=== PATIENT | female | born 1940 | race Caucasian/White ===

== ENCOUNTER 2017-09-24 23:34 | Inpatient (IN) | payer OTHER ==
[2017-09-25] MEDS ORDERED: morphine CARPU-JECT 2 MG/1 ML DISP.SYRIN IVPUSH ONE (02:12)
[2017-09-25 02:29] LABS: BASOPHIL 0.1 % (0-2.0); EOSINOPHIL 0.1 % (0-4.5); MCH 29.4 pg (25.7-33.7); MCHC 34.2 g/dl (32.0-36.0); MEAN PLT VOLUME 8.3 fl (7.5-11.1); NEUTROPHILS 74.4 % (42.8-82.8); PLATELET COUNT 343 K/MM3 (134-434); RDW 15.9 % (11.6-15.6); WHITE BLOOD COUNT 7.2 K/mm3 (4.0-10.0)
--- NOTE | 2017-09-25 02:32 | PDOC ---
History of Present Illness - General Chief Complaint: Injury Stated Complaint: FALL Time Seen by Provider: 09/25/17 00:01 History Source: [facility] Records Exam Limitations: Dementia - History of Present Illness Initial Comments: 09/25/17 02:25 76yo Female patient w/ PmHx: Anemia, CAD, GERD, Hypokalemia, Early Dementia, C- Diff presented to ED via EMS from [facility] for fall. Staff state patient fell on Sep 23, X-rays done on results: No fracture or dislocation. Staff report patient continues to c/o pain and was sent to this ED for evaluation. Anticoagulation: ASA 81 and Heparin 5000 units. Occurred: reports: other (2 days). denies: just prior to arrival, this morning , this afternoon, this evening, yesterday, last week Severity: reports: moderate. denies: mild, severe Pain Location: reports: lower extremity. denies: none, abdomen, back, chest, face, head, mouth, neck, other, pelvis, upper extremity Method of Injury: Yes: fall. No: unknown, assault, direct blow, motor vehicle crash, other Modifying Factors: improves with: immobilization. worse with: None, cold therapy, pain medication, rest, other Past History - Travel Traveled outside of the country in the last 30 days: No Close contact w/someone who was outside of country & ill: No - Past Medical History Allergies/Adverse Reactions: Allergies Allergy/AdvReac Type Severity Reaction Status Date / Time No Known Allergies Allergy Verified 09/24/17 23:49 Home Medications: Ambulatory Orders Aspirin [Neal Chewable Aspirin] 81 mg PO DAILY 09/04/17 Lactobacillus Acidophilus [Acidophilus] 1 each PO BID 09/04/17 Levothyroxine Sodium [Levo-T] 100 mcg PO DAILY 09/04/17 Quetiapine Fumarate [Seroquel -] 37.5 mg PO BID 09/04/17 Trazodone HCl 25 mg PO HS 09/04/17 Vancomycin 125 mg PO QID 09/04/17 Ascorbic Acid [Vitamin C -] 500 mg PO DAILY #30 tablet 09/07/17 Ferrous Sulfate [Feosol] 325 mg PO DAILY #30 tab 09/07/17 Heparin - 5,000 unit SQ BID #1 vial 09/07/17 Levothyroxine [Synthroid -] 125 mcg PO DAILY@0700 #30 tablet 09/07/17 Vancomycin Oral Solution 125 mg PO QID #1 ml 09/07/17 Anemia: No Asthma: No Cancer: No Cardiac Disorders: No CVA: No COPD: No CHF: No Dementia: No Diabetes: No GI Disorders: Yes (enterocolitis d/t c diff) Disorders: No HTN: No Hypercholesterolemia: No Liver Disease: No Psychiatric Problems: Yes (anxiety) Seizures: No Thyroid Disease: Yes (hypo) - Surgical History Abdominal Surgery: No Appendectomy: No Cardiac Surgery: No Cholecystectomy: No Lung Surgery: No Neurologic Surgery: No Orthopedic Surgery: No - Suicide/Smoking/Psychosocial Hx Smoking History: Never smoked Have you smoked in the past 12 months: No Information on smoking cessation initiated: No Hx Alcohol Use: No Drug/Substance Use Hx: No Substance Use Type: None Hx Substance Use Treatment: No Trauma Specific PMHX - Complaint Specific PMHX Arthritis: No Back Injury: No Neck Injury: No Hx Sacro Iliac Joint Dysfunction: No Review of Systems - Review of Systems Able to Perform ROS?: Yes Is the patient limited Filipino proficient: No Musculoskeletal: Yes: Joint Pain, Other (Hip Pain) All Other Systems: Reviewed and Negative *Physical Exam - Vital Signs Last Vital Signs Temp Pulse Resp BP Pulse Ox 99.5 F 108 H 20 99/55 93 L 09/24/17 23:42 09/25/17 01:36 09/25/17 01:36 09/25/17 01:36 09/25/17 01:36 - Physical Exam General Appearance: Yes: Appropriately Dressed, Moderate Distress, Thin Neck: positive: Trachea midline, Supple. negative: Lymphadenopathy (R), Lymphadenopathy (L), Tender lateral, Tender midline Respiratory/Chest: positive: Lungs Clear, Normal Breath Sounds. negative: Chest Tender, Respiratory Distress, Accessory Muscle Use, Labored Respiration, Rapid RR, Rhonchi, Stridor, Wheezing Cardiovascular: positive: Tachycardia Gastrointestinal/Abdominal: positive: Normal Bowel Sounds. negative: Distended , Guarding, Rebound, Tenderness Musculoskeletal: positive: Normal Inspection. negative: CVA Tenderness, Vertebral Tenderness Extremity: positive: Normal Capillary Refill, Pelvis Stable. negative: Normal Inspection (Left leg shortening), Normal Range of Motion (Limited ROM to left leg), Pedal Edema, Swelling, Calf Tenderness, Erythema, Inflammation Integumentary: positive: Normal Color, Dry, Warm Neurologic: positive: Alert, Normal Mood/Affect, Motor Strength 5/5 Heart Score/ECG Review - ECG Impressions Normal ECG: Yes Non-specific ST Elevation: No Ischemic Changes: No Bradycardia: No Tachycardia: Sinus Torsades issac Pointes: No WPW: No ED Treatment Course - LABORATORY CBC & Chemistry Diagram: 09/25/17 02:23 09/25/17 02:23 - RADIOLOGY Radiology Studies Ordered: Category Date Time Status ABDOMEN & PELVIS CT W/O CONTR [CT] Stat CT Scan 09/25/17 02:08 Ordered CHEST X-RAY PORTABLE* [RAD] Stat Radiology 09/25/17 02:07 Ordered HIP & PELVIS-LEFT [RAD] Stat Radiology 09/25/17 00:39 Taken *DC/Admit/Observation/Transfer Diagnosis at time of Disposition: Anemia Qualifiers: Anemia type: unspecified type Qualified Code(s): D64.9 - Anemia, unspecified Fracture of left hip Qualifiers: Encounter type: initial encounter Fracture type: closed Qualified Code(s): S72.002A - Fracture of unspecified part of neck of left femur, initial encounter for closed fracture UTI (urinary tract infection) Qualifiers: Urinary tract infection type: acute cystitis Hematuria presence: without hematuria Qualified Code(s): N30.00 - Acute cystitis without hematuria - Discharge Dispostion Condition at time of disposition: Fair Admit: Yes - Referrals Referrals: Francisco Ellis MD [Primary Care Provider] - - Patient Instructions - Post Discharge Activity
--- NOTE | 2017-09-25 02:34 | PDOC ---
*Physical Exam - Vital Signs Last Vital Signs Temp Pulse Resp BP Pulse Ox 99.5 F 108 H 20 99/55 93 L 09/24/17 23:42 09/25/17 01:36 09/25/17 01:36 09/25/17 01:36 09/25/17 01:36 ED Treatment Course - LABORATORY CBC & Chemistry Diagram: 09/25/17 09:45 09/25/17 09:45 - ADDITIONAL ORDERS Additional order review: 09/25/17 02:23 RBC 2.55 L MCV 86.0 MCHC 34.2 RDW 15.9 H MPV 8.3 Neutrophils % 74.4 Lymphocytes % 8.8 D Monocytes % 16.6 H D Eosinophils % 0.1 D Basophils % 0.1 Medical Decision Making - Medical Decision Making 09/25/17 02:33 agree with care from DANI Mane. Pt to be admitted to hospitalist service for left hip fx *DC/Admit/Observation/Transfer Diagnosis at time of Disposition: Anemia, Fracture of left hip, UTI (urinary tract infection) - Discharge Dispostion Condition at time of disposition: Fair - Referrals - Patient Instructions - Post Discharge Activity
[2017-09-25] MEDS ORDERED: morphine SULFATE 4 MG/ML VIAL IVPUSH PRN (02:48)
[2017-09-25] MEDS ORDERED: CEFTRIAXONE 2 GM in DEXTROSE 5%-WATER - 100 ML IVPB ONE (02:48)
[2017-09-25 02:50] LABS: INR 1.19 (0.82-1.09); PROTHROMBIN TIME (PATIENT) 13.5 SEC (9.98-11.88)
[2017-09-25] MEDS ORDERED: morphine SULFATE 4 MG/ML VIAL ONE (02:52)
[2017-09-25 02:53] LABS: ACTIVATED PTT 24.2 SECONDS (26.9-34.4)
[2017-09-25 02:54] LABS: ALBUMIN 2.3 g/dl (3.4-5.0); ANION GAP 14 (8-16); BILIRUBIN,TOTAL 0.3 mg/dL (0.2-1.0); CALCIUM 7.8 mg/dL (8.5-10.1); CO2 25 mmol/L (21-32); CREATININE 1.9 mg/dL (0.55-1.02); GLUCOSE,RANDOM 155 mg/dL (74-106); SGOT/AST 29 U/L (15-37); SGPT/ALT 34 U/L (12-78); TOT PROT 6.2 g/dl (6.4-8.2)
[2017-09-25 02:56] LABS: ALK PHOS 104 U/L (45-117); CPK 43 IU/L (26-192); TROPONIN I < 0.02 ng/ml (0.00-0.05)
[2017-09-25 02:58] LABS: URINE APPEARANCE TURBID; URINE BILIRUBIN NEGATIVE (NEGATIVE); URINE BLOOD 3+ (NEGATIVE); URINE COLOR YELLOW; URINE GLUCOSE (UA) NEGATIVE (NEGATIVE); URINE KETONE NEGATIVE (NEGATIVE); URINE NITRITE NEGATIVE (NEGATIVE); URINE UROBILINOGEN NEGATIVE mg/dL (0.2-1.0)
[2017-09-25] MEDS ORDERED: CEFTRIAXONE 2 GM/100 ML BAG IVPB ONE (02:59)
[2017-09-25 03:01] LABS: URINE PROTEIN 2+ (NEGATIVE)
[2017-09-25] MEDS ORDERED: POTASSIUM CHLORIDE TABS 20 MEQ TABLET.ER (FP) PO ONE ×2 (03:08→04:10)
[2017-09-25 03:20] LABS: URINE RBC 6 /hpf (0-3); URINE WBC 3414 /hpf (3-5)
[2017-09-25 03:21] LABS: URINE BACTERIA MANY /hpf (NONE SEEN)
--- NOTE | 2017-09-25 03:54 | HP ---
CHIEF COMPLAINT: left hip pain PCP: Rhonda HISTORY OF PRESENT ILLNESS: This is a 76 year old female with a significant past medical history of dementia and frequent falls s/p R humeral head fx 09/05/17 who presented to the ED with left hip pain s/p fall on 09/23. Xray done at skilled nursing ([facility]) and was reported as no fracture but pain persisted so they sent her here. Pt reports pain to left hip but denies to right shoulder. No other complaints on exam. ER course was notable for: (1) L femoral neck fracture (2) Hgb 7.5 (3) BUN 64/1.9 Recent Travel: pt denies PAST MEDICAL HISTORY: hypothyroidism c diff colitis anxiety gerd anemia hypokalemia R proximal humerus fracture 09/05/17, pt refused surgery PAST SURGICAL HISTORY: unknown Social History: Smoking: smoked briefly in her teens, none since Alcohol: none presently Drugs: none Family History: father age 74, stomach CA mother 84, heart failure sister alive and well no children Allergies No Known Allergies Allergy (Verified 09/24/17 23:49) HOME MEDICATIONS: 3 Medication Instructions Recorded Aspirin [Neal Chewable Aspirin] 81 mg PO DAILY 09/04/17 Lactobacillus Acidophilus 1 each PO BID 09/04/17 [Acidophilus] Quetiapine Fumarate [Seroquel -] 37.5 mg PO BID 09/04/17 Trazodone HCl 25 mg PO HS 09/04/17 Ascorbic Acid [Vitamin C -] 500 mg PO DAILY #30 tablet 09/07/17 Ferrous Sulfate [Feosol] 325 mg PO DAILY #30 tab 09/07/17 Heparin - 5,000 unit SQ BID #1 vial 09/07/17 Levothyroxine [Synthroid -] 150 mcg PO DAILY@0700 #30 tablet 09/07/17 LPS 30cc daily prilosec 20mg daily vitamin c 500mg TID ferrous sulfate 325mg TID REVIEW OF SYSTEMS CONSTITUTIONAL: Absent: fever, chills, diaphoresis, generalized weakness, malaise, loss of appetite, weight change HEENT: Absent: rhinorrhea, nasal congestion, throat pain, throat swelling, difficulty swallowing, mouth swelling, ear pain, eye pain, visual changes CARDIOVASCULAR: Absent: chest pain, syncope, palpitations, irregular heart rate, lightheadedness , peripheral edema RESPIRATORY: Absent: cough, shortness of breath, dyspnea with exertion, orthopnea, wheezing, stridor, hemoptysis GASTROINTESTINAL: Absent: abdominal pain, abdominal distension, nausea, vomiting, diarrhea, constipation, melena, hematochezia GENITOURINARY: Absent: dysuria, frequency, urgency, hesitancy, hematuria, flank pain, genital pain MUSCULOSKELETAL: Present: Left hip pain Absent: myalgia, arthralgia, joint swelling, back pain, neck pain SKIN: Absent: rash, itching, pallor HEMATOLOGIC/IMMUNOLOGIC: Absent: easy bleeding, easy bruising, lymphadenopathy, frequent infections ENDOCRINE: Absent: unexplained weight gain, unexplained weight loss, heat intolerance, cold intolerance NEUROLOGIC: Absent: headache, focal weakness or paresthesias, dizziness, unsteady gait, seizure, mental status changes, bladder or bowel incontinence PSYCHIATRIC: Absent: anxiety, depression, suicidal or homicidal ideation, hallucinations. PHYSICAL EXAMINATION Vital Signs - 24 hr 3 09/24/17 09/25/17 23:42 01:36 Temperature 99.5 F Pulse Rate 109 H Pulse Rate [ 108 H Apical] Respiratory 19 20 Rate Blood Pressure 101/83 Blood Pressure 99/55 [Left Arm] O2 Sat by Pulse 97 93 L Oximetry (%) GENERAL: Awake, alert, and fully oriented, in no acute distress. HEAD: Normal with no signs of trauma. EYES: Pupils equal, round and reactive to light, extraocular movements intact, sclera anicteric, conjunctiva clear. No lid lag. EARS, NOSE, THROAT: Ears normal, nares patent, oropharynx clear without exudates. Moist mucous membranes. NECK: Normal range of motion, supple without lymphadenopathy, JVD, or masses. LUNGS: Breath sounds equal, clear to auscultation bilaterally. No wheezes, and no crackles. No accessory muscle use. HEART: Regular rate and rhythm, normal S1 and S2 without murmur, rub or gallop. ABDOMEN: Soft, nontender, not distended, normoactive bowel sounds, no guarding, no rebound, no masses. No hepatomegaly or splenomegaly. MUSCULOSKELETAL: Normal range of motion at all joints except left hip/right shoulder. No bony deformities or tenderness. No CVA tenderness. decreased ROM right shoulder but no pain. Pain on attempt at ROM left hip, not performed, Left leg shortened and externally rotated UPPER EXTREMITIES: 2+ pulses, warm, well-perfused. No cyanosis. No clubbing. No peripheral edema. LOWER EXTREMITIES: 2+ pulses, warm, well-perfused. No calf tenderness. No peripheral edema. NEUROLOGICAL: Cranial nerves II-XII intact. Normal speech. Normal gait. PSYCHIATRIC: Cooperative. Good eye contact. Appropriate mood and affect. SKIN: Warm, dry, normal turgor, no rashes or lesions noted, normal capillary refill. Laboratory Results - last 24 hr 3 09/25/17 09/25/17 09/25/17 02:23 02:23 02:23 WBC RBC Hgb Hct MCV MCH MCHC RDW Plt Count MPV Neutrophils % Lymphocytes % Monocytes % Eosinophils % Basophils % PT with INR 13.50 H INR 1.19 H PTT (Actin FS) 24.2 L Sodium 127 L Potassium 3.3 L Chloride 88 L D Carbon Dioxide 25 Anion Gap 14 BUN 64 H D Creatinine 1.9 H D Creat Clearance w eGFR 25.84 Random Glucose 155 H D Lactic Acid Calcium 7.8 L Total Bilirubin 0.3 D AST 29 D ALT 34 D Alkaline Phosphatase 104 D Creatine Kinase 43 Troponin I < 0.02 B-Natriuretic Peptide 810.74 H Total Protein 6.2 L Albumin 2.3 L D Urine Color Urine Appearance Urine pH Ur Specific [place] Urine Protein Urine Glucose (UA) Urine Ketones Urine Blood Urine Nitrite Urine Bilirubin Urine Urobilinogen Urine Bacteria Crossmatch See Detail 3 09/25/17 09/25/17 09/25/17 02:23 02:48 02:55 WBC 7.2 D RBC 2.55 L Hgb 7.5 L Hct 21.9 L MCV 86.0 MCH 29.4 MCHC 34.2 RDW 15.9 H Plt Count 343 MPV 8.3 Neutrophils % 74.4 Lymphocytes % 8.8 D Monocytes % 16.6 H D Eosinophils % 0.1 D Basophils % 0.1 PT with INR INR PTT (Actin FS) Sodium Potassium Chloride Carbon Dioxide Anion Gap BUN Creatinine Creat Clearance w eGFR Random Glucose Lactic Acid 1.7 Calcium Total Bilirubin AST ALT Alkaline Phosphatase Creatine Kinase Troponin I B-Natriuretic Peptide Total Protein Albumin Urine Color Yellow Urine Appearance Turbid Urine pH 5.0 Ur Specific [place] 1.017 Urine Protein 2+ H Urine Glucose (UA) Negative Urine Ketones Negative Urine Blood 3+ H Urine Nitrite Negative Urine Bilirubin Negative Urine Urobilinogen Negative Urine Bacteria Many Crossmatch ECG Sinus rhythm vent rate 102, QTC [address]/T changes Radiology reports: Left hip femoral neck fracture noted, official read pending CXR no obvious infiltrates or effusions, official read pending ASSESSMENT/PLAN: 76yF with PMH dementia, hypothyroidism, c diff colitis, anxiety, GERD, anemia, hypokalemia, R proximal humerus fracture presented to the ED s/p fall 09/23 with hip pain. Left femoral neck fracture - morphine 2mg IVP q4h PRN for pain - ortho consult - NPO for possible OR - mchugh cath for now, remove within 24 hours after fracture repair. Anemia - will transfuse 1uPRBC, repeat h/h after - cont iron therapy UTI - urine noted with gross pyuria - cont ceftriaxone, f/u cultures to ensure coverage hypokalemia - repleted, repeat in am EVARISTO - cr up from 1.45 on 09/23 - likely due to blood loss and volume depletion - start NS 100cc/hr, monitor volume status closely as she is also getting blood Hyponatremia - likely due to hypovolemia, give IVF and repeat BMP hypothyroidism - synthroid dose increased a few weeks ago due to elevated TSH, will not repeat as adequate time interval (4-6weeks) has not elapsed, cont increased dose DVT PPX - will defer due to possibility of OR tomorrow, start if pt does not go to OR FEN - NS @ 100cc/hr - BMP in am - NPO for possible OR Dispo: Pt currently requires inpatient management of her emergent symptoms and anticipated LOS is >48h Visit type - Emergency Visit Emergency Visit: Yes ED Registration Date: 09/25/17 Care time: The patient presented to the Emergency Department on the above date and was hospitalized for further evaluation of their emergent condition. - New Patient This patient is new to me today: Yes Date on this admission: 09/25/17 - Critical Care Critical Care patient: No
[2017-09-25] MEDS ORDERED: PANTOPRAZOLE 40 MG TABLET (FP) ONE (04:10)
[2017-09-25] MEDS: SODIUM CHLORIDE 1,000 ML IV SCH ×3 (04:14→19:30)
[2017-09-25] MEDS: PANTOPRAZOLE 20 MG TABLET (FP) PO SCH ×3 (04:14→11:21)
[2017-09-25 05:13] VITALS: BMI 17.8
[2017-09-25] MEDS: LEVOTHYROXINE NA 75 MCG TABLET (FP) PO SCH (06:57)
[2017-09-25] MEDS ORDERED: LEVOTHYROXINE NA 150 MCG TABLET PO SCH (07:00)
[2017-09-25] MEDS: AMINO ACIDS/PROTEIN HYDROLYS 30 ML LIQUID.PKT PO SCH ×2 (08:40→11:21)
--- NOTE | 2017-09-25 09:24 | CONSULT ---
Consult - text type - Consultation Consultation Note: FULL CONSULT DICTATED IMP: DISPLACED LEFT FEMORAL NECK HIP FX PLAN: --> FOR LEFT HIP HEMIARTHROPLASTY WHEN MEDICALLY OPTIMIZED
[2017-09-25 10:14] LABS: BASOPHIL 0.4 % (0-2.0); EOSINOPHIL 0.1 % (0-4.5); MCH 29.4 pg (25.7-33.7); MCHC 34.6 g/dl (32.0-36.0); MEAN CELL VOLUME 84.8 fl (80-96); MEAN PLT VOLUME 8.2 fl (7.5-11.1); PLATELET COUNT 342 K/MM3 (134-434); RDW 15.6 % (11.6-15.6); WHITE BLOOD COUNT 7.2 K/mm3 (4.0-10.0)
[2017-09-25 10:29] LABS: URINE LEUK ESTERASE 3+ (NEGATIVE)
--- NOTE | 2017-09-25 10:38 | EKG ---
Test Reason : Blood Pressure : / mmHG Vent. Rate : 102 BPM Atrial Rate : 102 BPM P-R Int : 128 ms QRS Dur : 084 ms QT Int : 344 ms P-R-T Axes : 042 026 045 degrees QTc Int : 448 ms SINUS TACHYCARDIA OTHERWISE NORMAL ECG WHEN COMPARED WITH ECG OF 05-SEP-2017 03:19, NO SIGNIFICANT CHANGE WAS FOUND Confirmed by APRIL ALBERTO MD ([id number]) on 09/25/2017 10:37:58 AM Referred By: Confirmed By:APRIL ALBERTO MD
[2017-09-25 10:48] LABS: ANION GAP 12 (8-16); CALCIUM 8.3 mg/dL (8.5-10.1); CO2 28 mmol/L (21-32); CREATININE 1.8 mg/dL (0.55-1.02); GLUCOSE,RANDOM 106 mg/dL (74-106)
[2017-09-25] MEDS: QUEtiapine FUMARATE 25 MG TABLET (FP) PO SCH ×3 (11:11→21:42)
[2017-09-25] MEDS: LACTOBACILLUS ACIDOPHILUS 1 EACH TAB (FP) PO SCH ×3 (11:11→21:43)
[2017-09-25] MEDS: FERROUS SO4 325 MG TABLET (FP) PO SCH ×2 (11:11→11:21)
[2017-09-25] MEDS: ASCORBIC ACID 500 MG TABLET (FP) PO SCH ×2 (11:12→11:21)
--- NOTE | 2017-09-25 11:15 | PN ---
Progress Note (short form) - Note Progress Note: follow up Zb=113. BUN/Cr also elevated Anesthesia wants to hold off surgery until labs improve. Patient scheduled for Saturday morning
--- NOTE | 2017-09-25 13:49 | PN ---
Progress Note (short form) - Note Progress Note: Patient seen and examined. C/O Left hip pain S/P Fall with left hip fracture. Denies chest pain, shortness of breath, palpitation or dizziness. Denies nausea, vomiting, abdominal pain. Afebrile. ER course was notable for: (1) L femoral neck fracture (2) Hgb 7.5 (3) BUN 64/1.9 Recent Travel: pt denies PAST MEDICAL HISTORY: hypothyroidism c diff colitis anxiety gerd anemia hypokalemia R proximal humerus fracture 09/05/17, pt refused surgery PAST SURGICAL HISTORY: unknown Social History: Smoking: smoked briefly in her teens, none since Alcohol: none presently Drugs: none Family History: father age 74, stomach CA mother 84, heart failure sister alive and well no children Allergies No Known Allergies Allergy (Verified 09/24/17 23:49) HOME MEDICATIONS: 3 Medication Instructions Recorded Aspirin [Neal Chewable Aspirin] 81 mg PO DAILY 09/04/17 Lactobacillus Acidophilus 1 each PO BID 09/04/17 [Acidophilus] Quetiapine Fumarate [Seroquel -] 37.5 mg PO BID 09/04/17 Trazodone HCl 25 mg PO HS 09/04/17 Ascorbic Acid [Vitamin C -] 500 mg PO DAILY #30 tablet 09/07/17 Ferrous Sulfate [Feosol] 325 mg PO DAILY #30 tab 09/07/17 Heparin - 5,000 unit SQ BID #1 vial 09/07/17 Levothyroxine [Synthroid -] 150 mcg PO DAILY@0700 #30 tablet 09/07/17 LPS 30cc daily prilosec 20mg daily vitamin c 500mg TID ferrous sulfate 325mg TID REVIEW OF SYSTEMS CONSTITUTIONAL: Absent: fever, chills, diaphoresis, generalized weakness, malaise, loss of appetite, weight change HEENT: Absent: rhinorrhea, nasal congestion, throat pain, throat swelling, difficulty swallowing, mouth swelling, ear pain, eye pain, visual changes CARDIOVASCULAR: Absent: chest pain, syncope, palpitations, irregular heart rate, lightheadedness , peripheral edema RESPIRATORY: Absent: cough, shortness of breath, dyspnea with exertion, orthopnea, wheezing, stridor, hemoptysis GASTROINTESTINAL: Absent: abdominal pain, abdominal distension, nausea, vomiting, diarrhea, constipation, melena, hematochezia GENITOURINARY: Absent: dysuria, frequency, urgency, hesitancy, hematuria, flank pain, genital pain MUSCULOSKELETAL: Present: Left hip pain Absent: myalgia, arthralgia, joint swelling, back pain, neck pain SKIN: Absent: rash, itching, pallor HEMATOLOGIC/IMMUNOLOGIC: Absent: easy bleeding, easy bruising, lymphadenopathy, frequent infections ENDOCRINE: Absent: unexplained weight gain, unexplained weight loss, heat intolerance, cold intolerance NEUROLOGIC: Absent: headache, focal weakness or paresthesias, dizziness, unsteady gait, seizure, mental status changes, bladder or bowel incontinence PSYCHIATRIC: Absent: anxiety, depression, suicidal or homicidal ideation, hallucinations. PHYSICAL EXAMINATION Vital Signs Period Temp Pulse Resp BP Sys/Pierce Pulse Ox Last 24 Hr 98.4 F-99.5 F 96-109 19-20 93-101/55-83 93-97 GENERAL: Awake, alert, and fully oriented, in no acute distress. HEAD: Normal with no signs of trauma. EYES: Pupils equal, round and reactive to light, extraocular movements intact, sclera anicteric, conjunctiva clear. No lid lag. EARS, NOSE, THROAT: Ears normal, nares patent, oropharynx clear without exudates. Moist mucous membranes. NECK: Normal range of motion, supple without lymphadenopathy, JVD, or masses. LUNGS: Breath sounds equal, clear to auscultation bilaterally. No wheezes, and no crackles. No accessory muscle use. HEART: Regular rate and rhythm, normal S1 and S2 without murmur, rub or gallop. ABDOMEN: Soft, nontender, not distended, normoactive bowel sounds, no guarding, no rebound, no masses. No hepatomegaly or splenomegaly. MUSCULOSKELETAL: Normal range of motion at all joints except left hip/right shoulder. No bony deformities or tenderness. No CVA tenderness. decreased ROM right shoulder but no pain. Pain on attempt at ROM left hip, not performed, Left leg shortened and externally rotated UPPER EXTREMITIES: 2+ pulses, warm, well-perfused. No cyanosis. No clubbing. No peripheral edema. LOWER EXTREMITIES: 2+ pulses, warm, well-perfused. No calf tenderness. No peripheral edema. NEUROLOGICAL: Cranial nerves II-XII intact. Normal speech. Normal gait. PSYCHIATRIC: Cooperative. Good eye contact. Appropriate mood and affect. SKIN: Warm, dry, normal turgor, no rashes or lesions noted, normal capillary refill. CBC, BMP 09/25/17 09:45 09/25/17 09:45 ECG Sinus rhythm vent rate 102, QTC [address]/T changes Radiology reports: Left hip femoral neck fracture noted, official read pending CXR no obvious infiltrates or effusions, official read pending ASSESSMENT/PLAN: 76yF with PMH dementia, hypothyroidism, c diff colitis, anxiety, GERD, anemia, hypokalemia, R proximal humerus fracture presented to the ED s/p fall 09/23 with hip pain. Left femoral neck fracture - Ortho consult noted. - Surgery deferred today because of Na 129. Scheduled for Saturday. - Continue morphine 2mg IVP q4h PRN for pain - mchugh cath for now, remove within 24 hours after fracture repair. Anemia - H/H improved. - S/P 1 unit prbc transfusion. - Cont iron therapy UTI - urine noted with gross pyuria - cont ceftriaxone, f/u cultures to ensure coverage hypokalemia - repleted, repeat in am EVARISTO - cr up from 1.45 on 09/23 - likely due to blood loss and volume depletion - Continue NS 75 cc/hr. Hyponatremia - likely due to hypovolemia, continue IVF and repeat BMP hypothyroidism - synthroid dose increased a few weeks ago due to elevated TSH, will not repeat as adequate time interval (4-6weeks) has not elapsed, cont increased dose DVT PPX - Lovenox 40 mg sc daily. Plan for surgery on Saturday. FEN - NS @ 75 cc/hr - BMP in am - Regular diet. Dispo: Pt currently requires inpatient management of her emergent symptoms and anticipated LOS is >48h Patient is not medically cleared for surgery as of today because of Na 129 and EVARISTO. Continue IV fluids. Check BMP tomorrow. She should be ready for surgery on Saturday.
[2017-09-25] MEDS: ENOXAPARIN NA (PORCINE) 40 MG/0.4 ML DISP.SYRIN SQ SCH (15:13)
--- NOTE | 2017-09-25 15:29 | CON.NEP ---
Consult Consult Specialty:: Nephrology Referred by:: Dr. Ellis Reason for Consultation:: Acute on Chronc Renal Insuffiency - History of Present Illness Chief Complaint: Fall History of Present Illness: This is a 76 year old woman with PMhx of Dementia, Frequent falls, Right Femoral Head Fx 09/05/2017 (refused Sx) presented with fall with left femoral fracture with BUN/Cr of 64/1.9. Pt is alert and oriented but unable to provide history. Her answers are inapporiate and she has wandering of ideas. Denies any pain, sob, N/V. - History Source History Provided By: Patient Limitations to Obtaining History: Clinical Condition - Past Medical History ...: No - Alcohol/Substance Use Hx Alcohol Use: No - Smoking History Smoking history: Never smoked Have you smoked in the past 12 months: No Home Medications - Allergies Allergies/Adverse Reactions: Allergies Allergy/AdvReac Type Severity Reaction Status Date / Time No Known Allergies Allergy Verified 09/24/17 23:49 - Home Medications Home Medications: Ambulatory Orders Aspirin [Neal Chewable Aspirin] 81 mg PO DAILY 09/04/17 Lactobacillus Acidophilus [Acidophilus] 1 each PO BID 09/04/17 Trazodone HCl 25 mg PO HS 09/04/17 Aa/Hydrolyzed Collagen, Whey [Lps Neutral Flavor Liquid] 30 ml PO DAILY Ascorbic Acid [Vitamin C -] 500 mg PO TID 09/25/17 Ferrous Sulfate 325 mg PO TID 09/25/17 Heparin - 5,000 unit SQ BID 09/25/17 Levothyroxine [Synthroid -] 150 mcg PO ACBK 09/25/17 Omeprazole Magnesium [Prilosec] 20 mg PO ACBK 09/25/17 Potassium Chloride [K-Dur -] 20 meq PO DAILY 09/25/17 Quetiapine Fumarate [Seroquel -] 37.5 mg PO BID 09/25/17 Family Disease History - Family Disease History Family History: Unable to Obtain Review of Systems - Review of Systems Constitutional: reports: No Symptoms Eyes: reports: No Symptoms Neck: reports: No Symptoms Cardiovascular: reports: No Symptoms Respiratory: reports: No Symptoms Gastrointestinal: reports: No Symptoms Genitourinary: reports: No Symptoms Musculoskeletal: reports: Joint Pain Integumentary: reports: No Symptoms Neurological: reports: No Symptoms Psychiatric: reports: Other Nephrology Consult - Height Height: 5 ft - Weight Weight: 41.413 kg - BMI Body Mass Index (BMI): 17.8 - Lab Results CBC,BMP: CBC, BMP 09/25/17 09:45 09/25/17 09:45 Anion Gap: Anion Gap Anion Gap 12 (8-16) 09/25/17 09:45 - Imaging Chest X-ray: Report Reviewed - Physical Examination Vital Signs: Vital Signs Temperature 99.0 F 09/25/17 14:58 Pulse Rate 113 H 09/25/17 14:58 Respiratory Rate 18 09/25/17 14:58 Blood Pressure 109/59 09/25/17 14:58 O2 Sat by Pulse Oximetry (%) 93 L 09/25/17 09:00 Constitutional: Yes: Well Nourished, No Distress, Calm Eyes: Yes: Conjunctiva Clear HENT: Yes: Atraumatic, Normocephalic Neck: Yes: Supple Cardiovascular: Yes: Regular Rate and Rhythm Respiratory: Yes: Regular, CTA Bilaterally Gastrointestinal: Yes: Normal Bowel Sounds, Soft. No: Tenderness Renal/: Yes: Mchugh Present. No: Bladder Distention, CVA Tenderness - Left, CVA Tenderness - Right Extremities: No: Cold, Cool, Cyanosis Edema: No Assessment/Plan 76 year old woman with PMhx of Dementia, Frequent falls, Right Femoral Head Fx 09/05/2017 (refused Sx) presented with fall with left femoral fracture with BUN/ Cr of 64/1.9. #Acute on Chronic Renal Insufficiency Baseline Cr unknown, was ~1.5 last admission Check Urine studies and Renal US to access kidney size and structure continue mchugh for now as pt is immobile and on pain meds and at high risk for retention Check Urine Culture as urine appears cloudy Continue isotonic saline with fall precautions. #Hip Fracture pain control surgical intervention when optimized #Anemia (acute on chronic) Check iron studies transfuse PRN #dementia supportive care Thank you Will follow Current Medications Amino Acids (Prosource No Carb Liquid Pkt) 30 ml PO DAILY@0800 [facility] Last Admin: 09/25/17 11:21 Dose: 30 ml Ascorbic Acid (Vitamin C -) 500 mg PO DAILY [facility] Last Admin: 09/25/17 11:21 Dose: 500 mg Docusate Sodium (Colace -) 300 mg PO [facility] Enoxaparin Sodium (Lovenox -) 40 mg SQ DAILY [facility] Stop: 09/26/17 10:01 Last Admin: 09/25/17 15:13 Dose: 40 mg Ferrous Sulfate (Feosol -) 325 mg PO DAILY [facility] Last Admin: 09/25/17 11:21 Dose: 325 mg Sodium Chloride (Normal Saline -) 1,000 mls @ 75 mls/hr IV ASDIR [facility] Lactobacillus Acidophilus (Bacid -) 1 tab PO BID [facility] Last Admin: 09/25/17 11:21 Dose: 1 tab Levothyroxine Sodium (Synthroid -) 150 mcg PO DAILY@0700 [facility] Last Admin: 09/25/17 06:57 Dose: 150 mcg Morphine Sulfate (Morphine Sulfate) 2 mg IVPUSH Q4H PRN PRN Reason: PAIN Last Admin: 09/25/17 09:57 Dose: 2 mg Pantoprazole Sodium (Protonix -) 20 mg PO DAILY [facility] Last Admin: 09/25/17 11:21 Dose: 20 mg Quetiapine Fumarate (Seroquel -) 37.5 mg PO BID [facility] Last Admin: 09/25/17 11:20 Dose: 37.5 mg Trazodone HCl (Desyrel -) 25 mg PO HS [facility]
[2017-09-25] MEDS: DOCUSATE SODIUM 100 MG CAPSULE (FP) PO SCH (21:42)
[2017-09-25] MEDS: traZODone HCL 50 MG TABLET (FP) PO SCH (21:43)
[2017-09-26] MEDS: SODIUM CHLORIDE 1,000 ML IV SCH (02:46)
[2017-09-26] MEDS: LEVOTHYROXINE NA 75 MCG TABLET (FP) PO SCH (06:37)
[2017-09-26] MEDS ORDERED: PT OWN MED DRAWER 7, Y5N ONE (06:49)
[2017-09-26 08:03] LABS: BASOPHIL 0.3 % (0-2.0); EOSINOPHIL 0.5 % (0-4.5); MCH 29.5 pg (25.7-33.7); MCHC 34.6 g/dl (32.0-36.0); MEAN CELL VOLUME 85.2 fl (80-96); MEAN PLT VOLUME 8.3 fl (7.5-11.1); NEUTROPHILS 67.7 % (42.8-82.8); PLATELET COUNT 355 K/MM3 (134-434); RDW 16.3 % (11.6-15.6); WHITE BLOOD COUNT 6.3 K/mm3 (4.0-10.0)
[2017-09-26 08:17] LABS: CALCIUM 7.8 mg/dL (8.5-10.1)
[2017-09-26 08:27] LABS: ALK PHOS 97 U/L (45-117); ANION GAP 9 (8-16); BILIRUBIN,TOTAL 0.8 mg/dL (0.2-1.0); CO2 25 mmol/L (21-32); CREATININE 1.4 mg/dL (0.55-1.02); GLUCOSE,RANDOM 114 mg/dL (74-106); MAGNESIUM 2.3 mg/dL (1.8-2.4); PHOSPHOROUS 3.7 mg/dL (2.5-4.9); SGOT/AST 16 U/L (15-37); SGPT/ALT 25 U/L (12-78); TOT PROT 5.6 g/dl (6.4-8.2)
[2017-09-26] MEDS: ASCORBIC ACID 500 MG TABLET (FP) PO SCH (09:24)
[2017-09-26] MEDS: QUEtiapine FUMARATE 25 MG TABLET (FP) PO SCH ×3 (09:24→21:27)
[2017-09-26] MEDS: AMINO ACIDS/PROTEIN HYDROLYS 30 ML LIQUID.PKT PO SCH (09:24)
[2017-09-26] MEDS: ENOXAPARIN NA (PORCINE) 40 MG/0.4 ML DISP.SYRIN SQ SCH (09:25)
[2017-09-26] MEDS: FERROUS SO4 325 MG TABLET (FP) PO SCH (09:25)
[2017-09-26] MEDS: LACTOBACILLUS ACIDOPHILUS 1 EACH TAB (FP) PO SCH ×2 (09:25→21:28)
[2017-09-26] MEDS: CEFTRIAXONE 1 G/50 ML PREMIX 50 ML IVPB SCH (09:25)
[2017-09-26] MEDS: PANTOPRAZOLE 20 MG TABLET (FP) PO SCH (09:25)
--- NOTE | 2017-09-26 11:33 | PN ---
Progress Note (short form) - Note Progress Note: Renal follow up for EVARISTO Pt seen and examined at the bedside awake and alert continues to have random and unusual responses to questions but is oriented making urine on IVF Vital Signs Temperature 98.1 F 09/26/17 05:00 Pulse Rate 107 H 09/26/17 05:00 Respiratory Rate 18 09/26/17 05:00 Blood Pressure 94/64 09/26/17 05:00 O2 Sat by Pulse Oximetry (%) 94 L 09/25/17 21:00 Intake & Output 09/23/17 09/24/17 09/25/17 09/26/17 23:59 23:59 23:59 23:59 Intake Total 2024 1550 Output Total 600 600 Balance 1425 950 Weight 43.091 kg 41.413 kg NAD, awake and alert RRR CTA soft NT/ND No LE edema CBC, BMP 09/26/17 07:30 09/26/17 07:30 Current Medications Amino Acids (Prosource No Carb Liquid Pkt) 30 ml PO DAILY@0800 [facility] Last Admin: 09/26/17 09:24 Dose: 30 ml Ascorbic Acid (Vitamin C -) 500 mg PO DAILY [facility] Last Admin: 09/26/17 09:24 Dose: 500 mg Docusate Sodium (Colace -) 300 mg PO HS [facility] Last Admin: 09/25/17 21:42 Dose: 300 mg Ferrous Sulfate (Feosol -) 325 mg PO DAILY [facility] Last Admin: 09/26/17 09:25 Dose: 325 mg Sodium Chloride (Normal Saline -) 1,000 mls @ 75 mls/hr IV ASDIR [facility] Last Admin: 09/26/17 02:46 Dose: 75 mls/hr CEFTRIAXONE 1 G/50 ML PREMIX (Ceftriaxone 1 Gm-D5w Bag) 50 mls @ 100 mls/hr IVPB DAILY [facility] Last Admin: 09/26/17 09:25 Dose: 100 mls/hr Lactobacillus Acidophilus (Bacid -) 1 tab PO BID [facility] Last Admin: 09/26/17 09:25 Dose: 1 tab Levothyroxine Sodium (Synthroid -) 150 mcg PO DAILY@0700 [facility] Last Admin: 09/26/17 06:37 Dose: 150 mcg Morphine Sulfate (Morphine Sulfate) 2 mg IVPUSH Q4H PRN PRN Reason: PAIN Last Admin: 09/25/17 09:57 Dose: 2 mg Pantoprazole Sodium (Protonix -) 20 mg PO DAILY [facility] Last Admin: 09/26/17 09:25 Dose: 20 mg Quetiapine Fumarate (Seroquel -) 37.5 mg PO BID [facility] Last Admin: 09/26/17 09:29 Dose: Not Given Trazodone HCl (Desyrel -) 25 mg PO HS [facility] Last Admin: 09/25/17 21:43 Dose: 25 mg 76 year old woman with PMhx of Dementia, Frequent falls, Right Femoral Head Fx 09/05/2017 (refused Sx) presented with fall with left femoral fracture with BUN/ Cr of 64/1.9. #Acute on Chronic Renal Insufficiency Baseline Cr unknown, was ~1.5 last admission Renal function is improving continue istonic saline US showed hydronephrosis on right side, ? significnce and if there is a functional obstruction will get a non-contrast CT to access further avoid DANK/ARB and contrast studies for now #Hyponatremia improving with isotonic saline trend Na Q24hrs #Hip Fracture pain control surgical intervention when optimized #Anemia (acute on chronic) Check iron studies transfuse PRN #dementia supportive care Thank you Will follow
--- NOTE | 2017-09-26 16:19 | PN ---
Progress Note (short form) - Note Progress Note: Subjective: The patient was seen and examined at the bedside, she states it is October 03, 1956. She is A&Ox2 (person and place) Na improving 132 today Current Medications Generic Name Dose Route Start Last Admin Trade Name Freq PRN Reason Stop Dose Admin Amino Acids 30 ml 09/25/17 08:00 09/26/17 09:24 Prosource No Carb Liquid Pkt PO 30 ml DAILY@0800 [facility] Administration Ascorbic Acid 500 mg 09/25/17 10:00 09/26/17 09:24 Vitamin C - PO 500 mg DAILY [facility] Administration Docusate Sodium 300 mg 09/25/17 22:00 09/25/17 21:42 Colace - PO 300 mg HS [facility] Administration Ferrous Sulfate 325 mg 09/25/17 10:00 09/26/17 09:25 Feosol - PO 325 mg DAILY [facility] Administration Sodium Chloride 1,000 mls @ 75 mls/hr 09/25/17 13:49 09/26/17 02:46 Normal Saline - IV 75 mls/hr ASDIR [facility] Administration CEFTRIAXONE 1 G/50 ML PREMIX 50 mls @ 100 mls/hr 09/26/17 10:00 09/26/17 09: 25 Ceftriaxone 1 Gm-D5w Bag IVPB 100 mls/hr DAILY [facility] Administration Lactobacillus Acidophilus 1 tab 09/25/17 10:00 09/26/17 09:25 Bacid - PO 1 tab BID [facility] Administration Levothyroxine Sodium 150 mcg 09/25/17 07:00 09/26/17 06:37 Synthroid - PO 150 mcg DAILY@0700 [facility] Administration Morphine Sulfate 2 mg 09/25/17 02:48 09/25/17 09:57 Morphine Sulfate IVPUSH 2 mg Q4H PRN Administration PAIN Pantoprazole Sodium 20 mg 09/25/17 03:45 09/26/17 09:25 Protonix - PO 20 mg DAILY [facility] Administration Quetiapine Fumarate 37.5 mg 09/25/17 10:00 09/26/17 09:29 Seroquel - PO Not Given BID [facility] Trazodone HCl 25 mg 09/25/17 22:00 09/25/17 21:43 Desyrel - PO 25 mg HS [facility] Administration Objective: Vital Signs Period Temp Pulse Resp BP Sys/Pierce Pulse Ox Last 24 Hr 98.1 F-99 F 96-112 18-20 94-112/63-67 94-94 Physical Exam: General: NAD, A&Ox2 Lungs: CTA bilaterally Heart:
[2017-09-26] MEDS: DOCUSATE SODIUM 100 MG CAPSULE (FP) PO SCH (21:29)
[2017-09-26] MEDS: traZODone HCL 50 MG TABLET (FP) PO SCH (21:30)
[2017-09-27] MEDS: LEVOTHYROXINE NA 75 MCG TABLET (FP) PO SCH (06:18)
[2017-09-27] MEDS: SODIUM CHLORIDE 1,000 ML IV SCH ×2 (06:18→21:31)
[2017-09-27 07:40] LABS: BASOPHIL 0.5 % (0-2.0); EOSINOPHIL 0.9 % (0-4.5); MCH 28.9 pg (25.7-33.7); MCHC 33.7 g/dl (32.0-36.0); MEAN CELL VOLUME 85.7 fl (80-96); MEAN PLT VOLUME 7.9 fl (7.5-11.1); NEUTROPHILS 71.3 % (42.8-82.8); PLATELET COUNT 383 K/MM3 (134-434); RDW 15.7 % (11.6-15.6); WHITE BLOOD COUNT 6.6 K/mm3 (4.0-10.0)
[2017-09-27 08:05] LABS: ALBUMIN 1.9 g/dl (3.4-5.0); ALK PHOS 95 U/L (45-117); ANION GAP 10 (8-16); BILIRUBIN,TOTAL 0.6 mg/dL (0.2-1.0); CALCIUM 7.7 mg/dL (8.5-10.1); CO2 24 mmol/L (21-32); CREATININE 1.1 mg/dL (0.55-1.02); GLUCOSE,RANDOM 114 mg/dL (74-106); MAGNESIUM 2.3 mg/dL (1.8-2.4); PHOSPHOROUS 3.3 mg/dL (2.5-4.9); SGOT/AST 32 U/L (15-37); SGPT/ALT 39 U/L (12-78); TOT PROT 5.6 g/dl (6.4-8.2)
[2017-09-27] MEDS: CEFTRIAXONE 1 G/50 ML PREMIX 50 ML IVPB SCH (11:06)
--- NOTE | 2017-09-27 11:29 | PN ---
Progress Note (short form) - Note Progress Note: OR TEAMREADY TO GO TO TAKE PATIENT TO THE OR. PATIENT NOW REFUSES SURGERY TODAY AND POSSIBLY FOREVER. MULTIPLE MEMEBERS OF THE TEAM INCLUDING MYSELF, ANESTHESIA, NURSES AND SISTER TALKED TO HER BUT SHE WAS ADAMANT AND REFUSED. pSYCHOLOGY CALLED TO EVALUATE COMPETENCE
--- NOTE | 2017-09-27 12:00 | CON.PSY ---
Psychiatry Consult Chief Complaint: Ben is a resident of [facility], admitted with Fractureed Hip following a fall. Patient apparantly is refusing Surgery. seen for capacity to make decisions. Symptoms: reports: Anxiety - Previous Psychiatric Treatment Outpatient: None Inpatient: None - Previous Substance Abuse Treatment Outpatient: None Inpatient: None - Reason for Previous Treatment Reason for Previous Treatment: Anxiety or Panic Disorder - Current Medications Current Medications: Active Medications Amino Acids (Prosource No Carb Liquid Pkt) 30 ml PO DAILY@0800 [facility] Last Admin: 09/26/17 09:24 Dose: 30 ml Ascorbic Acid (Vitamin C -) 500 mg PO DAILY [facility] Last Admin: 09/26/17 09:24 Dose: 500 mg Docusate Sodium (Colace -) 300 mg PO HS [facility] Last Admin: 09/26/17 21:29 Dose: 300 mg Ferrous Sulfate (Feosol -) 325 mg PO DAILY [facility] Last Admin: 09/26/17 09:25 Dose: 325 mg Sodium Chloride (Normal Saline -) 1,000 mls @ 75 mls/hr IV ASDIR [facility] Last Admin: 09/27/17 06:18 Dose: 75 mls/hr CEFTRIAXONE 1 G/50 ML PREMIX (Ceftriaxone 1 Gm-D5w Bag) 50 mls @ 100 mls/hr IVPB DAILY [facility] Last Admin: 09/27/17 11:06 Dose: 100 mls/hr Lactobacillus Acidophilus (Bacid -) 1 tab PO BID [facility] Last Admin: 09/26/17 21:28 Dose: 1 tab Levothyroxine Sodium (Synthroid -) 150 mcg PO DAILY@0700 [facility] Last Admin: 09/27/17 06:18 Dose: 150 mcg Morphine Sulfate (Morphine Sulfate) 2 mg IVPUSH Q4H PRN PRN Reason: PAIN Last Admin: 09/25/17 09:57 Dose: 2 mg Pantoprazole Sodium (Protonix -) 20 mg PO DAILY [facility] Last Admin: 09/26/17 09:25 Dose: 20 mg Quetiapine Fumarate (Seroquel -) 37.5 mg PO BID [facility] Last Admin: 09/26/17 21:27 Dose: 37.5 mg Trazodone HCl (Desyrel -) 25 mg PO HS [facility] Last Admin: 09/26/17 21:30 Dose: 25 mg - Allergies Allergies: Allergies Allergy/AdvReac Type Severity Reaction Status Date / Time No Known Allergies Allergy Verified 09/24/17 23:49 - Current Living Status Usual Living Arrangement: [facility] - Current Mental Status Evaluation Appearance: Disheveled Attitude: Guarded - Affect Affect: Constrictive Appropriateness: Appropriate to Content - Mood Mood: Anxious, Irritable - Speech/Language Expressive: Coherent - Psychomotor Activity Psychomotor Activity: Hyperactive - Thought Process Thought Process: Circumstantial - Thought Content Hallucinations: Absent Delusions: Absent - Self Perception Self Perception: No Impairment - Cognition Attention: Alert Memory, Immediate Recall: Intact Memory, Short Term: 2/3 Memory, Remote with Promptin/3 - Concentration Serial Sevens Intact: No Simple Calculations Intact: No - Abstraction Proverb Interpretation: Intact Judgement: Minimally Impaired - Insight Insight: Intact - Impulse Control Impulse Control: Minimally Impaired - Suicidal Ideation Suicidal Ideation: No - Homicidal Ideation Homicidal Ideation: No Assessment/Plan 1) Patient has the functional capacity to make decisions at this time. 2) will increse SEroqul dose. 3) Patient is willing ti have Surgery but needs to be talked to and have her anxieties answered.
[2017-09-27] MEDS ORDERED: POTASSIUM CHLORIDE TABS 20 MEQ TABLET.ER (FP) PO ONE (13:45)
[2017-09-27] MEDS: PANTOPRAZOLE 20 MG TABLET (FP) PO SCH (14:16)
[2017-09-27] MEDS: FERROUS SO4 325 MG TABLET (FP) PO SCH (14:16)
[2017-09-27] MEDS: LACTOBACILLUS ACIDOPHILUS 1 EACH TAB (FP) PO SCH ×2 (14:16→21:32)
[2017-09-27] MEDS: ASCORBIC ACID 500 MG TABLET (FP) PO SCH (14:16)
[2017-09-27] MEDS: AMINO ACIDS/PROTEIN HYDROLYS 30 ML LIQUID.PKT PO SCH (14:16)
--- NOTE | 2017-09-27 16:00 | PN ---
Progress Note (short form) - Note Progress Note: Renal follow up for EVARISTO Pt seen and examined at the bedside awake and alert no sob, chest pain, abd pain has mild discomfort at the hip making urine Vital Signs Temperature 97.9 F 09/27/17 15:30 Pulse Rate 102 H 09/27/17 15:30 Respiratory Rate 18 09/27/17 15:30 Blood Pressure 112/71 09/27/17 15:30 O2 Sat by Pulse Oximetry (%) 94 L 09/26/17 21:00 Intake & Output 09/24/17 09/25/17 09/26/17 09/27/17 23:59 23:59 23:59 23:59 Intake Total 2024 2300 1150 Output Total 600 1400 1300 Balance 1425 900 -150 Weight 43.091 kg 41.413 kg NAD, awake and alert RRR CTA soft NT/ND No LE edema CBC, BMP 09/27/17 06:00 09/27/17 06:00 Current Medications Amino Acids (Prosource No Carb Liquid Pkt) 30 ml PO DAILY@0800 [facility] Last Admin: 09/27/17 14:16 Dose: Not Given Ascorbic Acid (Vitamin C -) 500 mg PO DAILY [facility] Last Admin: 09/27/17 14:16 Dose: Not Given Docusate Sodium (Colace -) 300 mg PO HS [facility] Last Admin: 09/26/17 21:29 Dose: 300 mg Ferrous Sulfate (Feosol -) 325 mg PO DAILY [facility] Last Admin: 09/27/17 14:16 Dose: Not Given Sodium Chloride (Normal Saline -) 1,000 mls @ 75 mls/hr IV ASDIR [facility] Last Admin: 09/27/17 06:18 Dose: 75 mls/hr CEFTRIAXONE 1 G/50 ML PREMIX (Ceftriaxone 1 Gm-D5w Bag) 50 mls @ 100 mls/hr IVPB DAILY [facility] Last Admin: 09/27/17 11:06 Dose: 100 mls/hr Lactobacillus Acidophilus (Bacid -) 1 tab PO BID [facility] Last Admin: 09/27/17 14:16 Dose: Not Given Levothyroxine Sodium (Synthroid -) 150 mcg PO DAILY@0700 [facility] Last Admin: 09/27/17 06:18 Dose: 150 mcg Morphine Sulfate (Morphine Sulfate) 2 mg IVPUSH Q4H PRN PRN Reason: PAIN Last Admin: 09/25/17 09:57 Dose: 2 mg Pantoprazole Sodium (Protonix -) 20 mg PO DAILY [facility] Last Admin: 09/27/17 14:16 Dose: Not Given Quetiapine Fumarate (Seroquel -) 50 mg PO BID [facility] Trazodone HCl (Desyrel -) 25 mg PO HS [facility] Last Admin: 09/26/17 21:30 Dose: 25 mg 76 year old woman with PMhx of Dementia, Frequent falls, Right Femoral Head Fx 09/05/2017 (refused Sx) presented with fall with left femoral fracture with BUN/ Cr of 64/1.9. #Acute on Chronic Renal Insufficiency Baseline Cr unknown, was ~1.5 last admission Renal function now improved and pt is non-oliguric can d/c IVF oral intake as tolerated Ct of the Abd and Pelvis is pending for eval of right sided hydronephrosis #Hyponatremia improved to normal oral intake as tolerated #Hip Fracture pain control surgical intervention when optimized #Anemia (acute on chronic) Check iron studies transfuse PRN #dementia supportive care Thank you Will follow
[2017-09-27] MEDS: QUEtiapine FUMARATE 25 MG TABLET (FP) PO SCH ×2 (16:06→21:32)
--- NOTE | 2017-09-27 18:45 | PN ---
Progress Note (short form) - Note Progress Note: Subjective: The patient was seen and examined at the bedside, she is refusing surgery at this time Psych states the patient is competent to make her own decisions Current Medications Generic Name Dose Route Start Last Admin Trade Name Freq PRN Reason Stop Dose Admin Amino Acids 30 ml 09/25/17 08:00 09/27/17 14:16 Prosource No Carb Liquid Pkt PO Not Given DAILY@0800 [facility] Ascorbic Acid 500 mg 09/25/17 10:00 09/27/17 14:16 Vitamin C - PO Not Given DAILY [facility] Docusate Sodium 300 mg 09/25/17 22:00 09/26/17 21:29 Colace - PO 300 mg HS [facility] Administration Ferrous Sulfate 325 mg 09/25/17 10:00 09/27/17 14:16 Feosol - PO Not Given DAILY [facility] Sodium Chloride 1,000 mls @ 75 mls/hr 09/25/17 13:49 09/27/17 06:18 Normal Saline - IV 75 mls/hr ASDIR [facility] Administration CEFTRIAXONE 1 G/50 ML PREMIX 50 mls @ 100 mls/hr 09/26/17 10:00 09/27/17 11: 06 Ceftriaxone 1 Gm-D5w Bag IVPB 100 mls/hr DAILY [facility] Administration Lactobacillus Acidophilus 1 tab 09/25/17 10:00 09/27/17 14:16 Bacid - PO Not Given BID [facility] Levothyroxine Sodium 150 mcg 09/25/17 07:00 09/27/17 06:18 Synthroid - PO 150 mcg DAILY@0700 [facility] Administration Morphine Sulfate 2 mg 09/25/17 02:48 09/25/17 09:57 Morphine Sulfate IVPUSH 2 mg Q4H PRN Administration PAIN Pantoprazole Sodium 20 mg 09/25/17 03:45 09/27/17 14:16 Protonix - PO Not Given DAILY [facility] Quetiapine Fumarate 50 mg 09/27/17 22:00 09/27/17 16:06 Seroquel - PO 50 mg BID [facility] Administration Trazodone HCl 25 mg 09/25/17 22:00 09/26/17 21:30 Desyrel - PO 25 mg HS [facility] Administration Objective: Vital Signs Period Temp Pulse Resp BP Sys/Pierce Pulse Ox Last 24 Hr 97.9 F-98.4 F 102-109 18-20 105-112/60-71 94 Physical Exam: General: NAD, A&Ox2 Lungs: CTA bilaterally Heart:
[2017-09-27] MEDS: DOCUSATE SODIUM 100 MG CAPSULE (FP) PO SCH (21:32)
[2017-09-27] MEDS: traZODone HCL 50 MG TABLET (FP) PO SCH (21:32)
[2017-09-28] MEDS: LEVOTHYROXINE NA 75 MCG TABLET (FP) PO SCH (06:15)
[2017-09-28 08:32] LABS: ANION GAP 10 (8-16); CALCIUM 7.5 mg/dL (8.5-10.1); CO2 24 mmol/L (21-32); CREATININE 0.9 mg/dL (0.55-1.02); GLUCOSE,RANDOM 100 mg/dL (74-106); MAGNESIUM 2.2 mg/dL (1.8-2.4)
[2017-09-28] MEDS: AMINO ACIDS/PROTEIN HYDROLYS 30 ML LIQUID.PKT PO SCH (09:29)
[2017-09-28] MEDS: CEFTRIAXONE 1 G/50 ML PREMIX 50 ML IVPB SCH (09:29)
[2017-09-28] MEDS: LACTOBACILLUS ACIDOPHILUS 1 EACH TAB (FP) PO SCH ×2 (09:29→22:08)
[2017-09-28] MEDS: SODIUM CHLORIDE 1,000 ML IV SCH ×2 (09:29→22:08)
[2017-09-28] MEDS: QUEtiapine FUMARATE 25 MG TABLET (FP) PO SCH ×2 (09:30→22:08)
[2017-09-28] MEDS: PANTOPRAZOLE 20 MG TABLET (FP) PO SCH (09:30)
[2017-09-28] MEDS: ASCORBIC ACID 500 MG TABLET (FP) PO SCH (09:30)
[2017-09-28] MEDS: FERROUS SO4 325 MG TABLET (FP) PO SCH (09:30)
--- NOTE | 2017-09-28 10:31 | PN ---
Progress Note, Physician History of Present Illness: Patient still debating surgery (seemed leaning towards surgery, but keeps changing her mind). Appreciate psychiatry input (has capacity to decide on surgery). Denies any pain currently. - Current Medication List Current Medications: Active Medications Amino Acids (Prosource No Carb Liquid Pkt) 30 ml PO DAILY@0800 [facility] Last Admin: 09/28/17 09:29 Dose: 30 ml Ascorbic Acid (Vitamin C -) 500 mg PO DAILY [facility] Last Admin: 09/28/17 09:30 Dose: 500 mg Docusate Sodium (Colace -) 300 mg PO HS [facility] Last Admin: 09/27/17 21:32 Dose: 300 mg Ferrous Sulfate (Feosol -) 325 mg PO DAILY [facility] Last Admin: 09/28/17 09:30 Dose: 325 mg Sodium Chloride (Normal Saline -) 1,000 mls @ 75 mls/hr IV ASDIR [facility] Last Admin: 09/28/17 09:29 Dose: 75 mls/hr CEFTRIAXONE 1 G/50 ML PREMIX (Ceftriaxone 1 Gm-D5w Bag) 50 mls @ 100 mls/hr IVPB DAILY [facility] Last Admin: 09/28/17 09:29 Dose: 100 mls/hr Lactobacillus Acidophilus (Bacid -) 1 tab PO BID [facility] Last Admin: 09/28/17 09:29 Dose: 1 tab Levothyroxine Sodium (Synthroid -) 150 mcg PO DAILY@0700 [facility] Last Admin: 09/28/17 06:15 Dose: 150 mcg Morphine Sulfate (Morphine Sulfate) 2 mg IVPUSH Q4H PRN PRN Reason: PAIN Last Admin: 09/25/17 09:57 Dose: 2 mg Pantoprazole Sodium (Protonix -) 20 mg PO DAILY [facility] Last Admin: 09/28/17 09:30 Dose: 20 mg Quetiapine Fumarate (Seroquel -) 50 mg PO BID [facility] Last Admin: 09/28/17 09:30 Dose: 50 mg Trazodone HCl (Desyrel -) 25 mg PO [facility] Last Admin: 09/27/17 21:32 Dose: 25 mg - Objective Vital Signs: Vital Signs Temperature 98.8 F 09/28/17 05:57 Pulse Rate 100 H 09/28/17 05:57 Respiratory Rate 18 09/28/17 05:57 Blood Pressure 100/58 09/28/17 05:57 O2 Sat by Pulse Oximetry (%) 94 L 09/27/17 21:00 Constitutional: Yes: No Distress, Calm Neck: Yes: Supple, Trachea Midline Cardiovascular: Yes: Regular Rate and Rhythm, S1, S2. No: Murmur Respiratory: Yes: Regular, CTA Bilaterally. No: Rales, Rhonchi, Wheezes Gastrointestinal: Yes: Normal Bowel Sounds, Soft. No: Tenderness, Vomiting Edema: No Labs: CBC, BMP 09/27/17 06:00 09/28/17 05:17 INR, PTT INR 1.19 (0.82-1.09) H 09/25/17 02:23 Assessment/Plan Current Active Problems Anemia (Acute) Fracture of left hip (Acute) UTI (urinary tract infection) (Acute) FRANCO, now resolved hypothyroid -patient still deciding on surgery, so if agrees then OR in next 2 days
--- NOTE | 2017-09-28 12:13 | PN ---
Progress Note, Physician Chief Complaint: The patient seen in her room. Confused, comfortable Urine output reportedly adequate. History of Present Illness: 76 year old woman with PMhx of Dementia, Frequent falls, Right Femoral Head Fx 09/05/2017 (refused Sx) presented with fall with left femoral fracture with BUN/ Cr of 64/1.9. Renal functions improving with hydration - Current Medication List Current Medications: Active Medications Amino Acids (Prosource No Carb Liquid Pkt) 30 ml PO DAILY@0800 [facility] Last Admin: 09/28/17 09:29 Dose: 30 ml Ascorbic Acid (Vitamin C -) 500 mg PO DAILY [facility] Last Admin: 09/28/17 09:30 Dose: 500 mg Docusate Sodium (Colace -) 300 mg PO HS [facility] Last Admin: 09/27/17 21:32 Dose: 300 mg Ferrous Sulfate (Feosol -) 325 mg PO DAILY [facility] Last Admin: 09/28/17 09:30 Dose: 325 mg Sodium Chloride (Normal Saline -) 1,000 mls @ 75 mls/hr IV ASDIR [facility] Last Admin: 09/28/17 09:29 Dose: 75 mls/hr CEFTRIAXONE 1 G/50 ML PREMIX (Ceftriaxone 1 Gm-D5w Bag) 50 mls @ 100 mls/hr IVPB DAILY [facility] Last Admin: 09/28/17 09:29 Dose: 100 mls/hr Lactobacillus Acidophilus (Bacid -) 1 tab PO BID [facility] Last Admin: 09/28/17 09:29 Dose: 1 tab Levothyroxine Sodium (Synthroid -) 150 mcg PO DAILY@0700 [facility] Last Admin: 09/28/17 06:15 Dose: 150 mcg Morphine Sulfate (Morphine Sulfate) 2 mg IVPUSH Q4H PRN PRN Reason: PAIN Last Admin: 09/25/17 09:57 Dose: 2 mg Pantoprazole Sodium (Protonix -) 20 mg PO DAILY [facility] Last Admin: 09/28/17 09:30 Dose: 20 mg Quetiapine Fumarate (Seroquel -) 50 mg PO BID [facility] Last Admin: 09/28/17 09:30 Dose: 50 mg Trazodone HCl (Desyrel -) 25 mg PO HS [facility] Last Admin: 09/27/17 21:32 Dose: 25 mg - Objective Vital Signs: Vital Signs Temperature 98.8 F 09/28/17 05:57 Pulse Rate 100 H 09/28/17 05:57 Respiratory Rate 18 09/28/17 05:57 Blood Pressure 100/58 09/28/17 05:57 O2 Sat by Pulse Oximetry (%) 94 L 09/27/17 21:00 Constitutional: Yes: Calm HENT: Yes: Atraumatic Neck: Yes: Trachea Midline Cardiovascular: Yes: S1, S2 Respiratory: Yes: CTA Bilaterally, Diminished Gastrointestinal: Yes: Normal Bowel Sounds Neurological: Yes: Confusion Labs: CBC, BMP 09/27/17 06:00 09/28/17 05:17 INR, PTT INR 1.19 (0.82-1.09) H 09/25/17 02:23 Problem List - Problems (1) Acute kidney failure Code(s): N17.9 - ACUTE KIDNEY FAILURE, UNSPECIFIED (2) Anemia Code(s): D64.9 - ANEMIA, UNSPECIFIED Qualifiers: Anemia type: unspecified type Qualified Code(s): D64.9 - Anemia, unspecified (3) Fracture of left hip Code(s): S72.002A - FRACTURE OF UNSP PART OF NECK OF LEFT FEMUR, INIT Qualifiers: Encounter type: initial encounter Fracture type: closed Qualified Code(s) : S72.002A - Fracture of unspecified part of neck of left femur, initial encounter for closed fracture (4) UTI (urinary tract infection) Code(s): N39.0 - URINARY TRACT INFECTION, SITE NOT SPECIFIED Qualifiers: Urinary tract infection type: acute cystitis Hematuria presence: without hematuria Qualified Code(s): N30.00 - Acute cystitis without hematuria Assessment/Plan 76 year old woman with PMhx of Dementia, Frequent falls, Right Femoral Head Fx 09/05/2017 (refused Sx) presented with fall with left femoral fracture with BUN/ Cr of 64/1.9. Acute on Chronic Renal Insufficiency The renal functions have improved to her baseline. The CT scan ordered to evaluate the Chronic unilateral Hydronephrosis is pending. Hyponatremia improved to normal oral intake as tolerated Hip Fracture pain control Surgical intervention when optimized Anemia (acute on chronic) Seems stable at this point. Dementia supportive care Will follow with you. Yolanda Steve MD
--- NOTE | 2017-09-28 18:53 | PN ---
Progress Note (short form) - Note Progress Note: FULL CONSULT DICTATED IMP: NEEDS SURGERY BUT KEEPS REFUSING PLAN: -->OR ON SATURDAY. IF SHE STILL REFUSES--->SNF
[2017-09-28] MEDS: traZODone HCL 50 MG TABLET (FP) PO SCH (22:07)
[2017-09-28] MEDS: DOCUSATE SODIUM 100 MG CAPSULE (FP) PO SCH (22:08)
[2017-09-29] MEDS: LEVOTHYROXINE NA 75 MCG TABLET (FP) PO SCH (06:07)
--- NOTE | 2017-09-29 08:00 | PN ---
DATE OF VISIT: 09/28/2017 The patient, today, adamantly refuses to have surgery again. When requested earlier, she told her medical doctor that she wanted surgery, but now she is saying that she does not want surgery. I am at a quandary now. At this point, the patient keeps giving conflicting opinions on what to do for her. Psychiatry has seen the patient; has seen the patient competent to make decisions on her own. So, at this point, we will just continue to medically optimize her and I will try one more time to book her for surgery on Saturday. If she consents on that day, we will do her; otherwise, we will transfer her back to the long term. JASON GUARDADO M.D. [id number]
[2017-09-29] MEDS ORDERED: PT OWN MED DRAWER 7, Y5N ONE (09:34)
[2017-09-29] MEDS: PANTOPRAZOLE 20 MG TABLET (FP) PO SCH (09:35)
[2017-09-29] MEDS: LACTOBACILLUS ACIDOPHILUS 1 EACH TAB (FP) PO SCH ×2 (09:36→21:48)
[2017-09-29] MEDS: AMINO ACIDS/PROTEIN HYDROLYS 30 ML LIQUID.PKT PO SCH (09:36)
[2017-09-29] MEDS: ASCORBIC ACID 500 MG TABLET (FP) PO SCH (09:36)
[2017-09-29] MEDS: FERROUS SO4 325 MG TABLET (FP) PO SCH (09:36)
[2017-09-29] MEDS: QUEtiapine FUMARATE 25 MG TABLET (FP) PO SCH ×2 (09:36→21:49)
[2017-09-29] MEDS: CEFTRIAXONE 1 G/50 ML PREMIX 50 ML IVPB SCH (10:14)
[2017-09-29] MEDS: POLYETHYLENE GLYCOL 3350 119 GM BTL PO SCH (10:14)
--- NOTE | 2017-09-29 11:00 | PN ---
Progress Note, Physician History of Present Illness: Patient now refusing surgery for hip. c/o cramping in abdomen, but no pain in hip currently. - Current Medication List Current Medications: Active Medications Amino Acids (Prosource No Carb Liquid Pkt) 30 ml PO DAILY@0800 [facility] Last Admin: 09/29/17 09:36 Dose: 30 ml Ascorbic Acid (Vitamin C -) 500 mg PO DAILY [facility] Last Admin: 09/29/17 09:36 Dose: Not Given Docusate Sodium (Colace -) 300 mg PO HS [facility] Last Admin: 09/28/17 22:08 Dose: Not Given Ferrous Sulfate (Feosol -) 325 mg PO DAILY [facility] Last Admin: 09/29/17 09:36 Dose: Not Given Sodium Chloride (Normal Saline -) 1,000 mls @ 75 mls/hr IV ASDIR [facility] Last Admin: 09/28/17 22:08 Dose: 75 mls/hr CEFTRIAXONE 1 G/50 ML PREMIX (Ceftriaxone 1 Gm-D5w Bag) 50 mls @ 100 mls/hr IVPB DAILY [facility] Last Admin: 09/29/17 10:14 Dose: 100 mls/hr Lactobacillus Acidophilus (Bacid -) 1 tab PO BID [facility] Last Admin: 09/29/17 09:36 Dose: 1 tab Levothyroxine Sodium (Synthroid -) 150 mcg PO DAILY@0700 [facility] Last Admin: 09/29/17 06:07 Dose: 150 mcg Morphine Sulfate (Morphine Sulfate) 2 mg IVPUSH Q4H PRN PRN Reason: PAIN Last Admin: 09/25/17 09:57 Dose: 2 mg Pantoprazole Sodium (Protonix -) 20 mg PO DAILY [facility] Last Admin: 09/29/17 09:35 Dose: 20 mg Polyethylene Glycol (Miralax (For Daily Use) -) 17 gm PO DAILY [facility] Last Admin: 09/29/17 10:14 Dose: 17 grams Quetiapine Fumarate (Seroquel -) 50 mg PO BID [facility] Last Admin: 09/29/17 09:36 Dose: 50 mg Trazodone HCl (Desyrel -) 25 mg PO HS [facility] Last Admin: 09/28/17 22:07 Dose: 25 mg - Objective Vital Signs: Vital Signs Temperature 98.2 F 09/29/17 08:24 Pulse Rate 101 H 09/29/17 08:24 Respiratory Rate 18 09/29/17 08:24 Blood Pressure 110/69 09/29/17 08:24 O2 Sat by Pulse Oximetry (%) 94 L 09/29/17 09:00 Constitutional: Yes: No Distress, Calm Neck: Yes: Supple, Trachea Midline Cardiovascular: Yes: Regular Rate and Rhythm, S1, S2. No: Murmur Respiratory: Yes: Regular, CTA Bilaterally. No: Rales, Rhonchi, Wheezes Gastrointestinal: Yes: Normal Bowel Sounds, Soft. No: Distention, Tenderness Edema: No Neurological: Yes: Alert, Oriented Labs: CBC, BMP 09/27/17 06:00 09/28/17 05:17 INR, PTT INR 1.19 (0.82-1.09) H 09/25/17 02:23 Assessment/Plan Current Active Problems Anemia (Acute) Fracture of left hip (Acute) UTI (urinary tract infection) (Acute) FRANCO, now resolved hypothyroid -now refusing surgery -completing UTI abx treatment, then consider transfer back to [facility]
--- NOTE | 2017-09-29 15:50 | PN ---
Progress Note, Physician Chief Complaint: The patient seen in her room. No new complaints. Refusing surgery urine output adequate. History of Present Illness: 76 year old woman with PMhx of Dementia, Frequent falls, Right Femoral Head Fx 09/05/2017 (refused Sx) presented with fall with left femoral fracture with BUN/ Cr of 64/1.9 on admission. Renal functions improving with hydration The patient is refusing surgery now. - Current Medication List Current Medications: Active Medications Amino Acids (Prosource No Carb Liquid Pkt) 30 ml PO DAILY@0800 [facility] Last Admin: 09/29/17 09:36 Dose: 30 ml Ascorbic Acid (Vitamin C -) 500 mg PO DAILY [facility] Last Admin: 09/29/17 09:36 Dose: Not Given Docusate Sodium (Colace -) 300 mg PO HS [facility] Last Admin: 09/28/17 22:08 Dose: Not Given Ferrous Sulfate (Feosol -) 325 mg PO DAILY [facility] Last Admin: 09/29/17 09:36 Dose: Not Given Sodium Chloride (Normal Saline -) 1,000 mls @ 75 mls/hr IV ASDIR [facility] Last Admin: 09/28/17 22:08 Dose: 75 mls/hr CEFTRIAXONE 1 G/50 ML PREMIX (Ceftriaxone 1 Gm-D5w Bag) 50 mls @ 100 mls/hr IVPB DAILY [facility] Last Admin: 09/29/17 10:14 Dose: 100 mls/hr Lactobacillus Acidophilus (Bacid -) 1 tab PO BID [facility] Last Admin: 09/29/17 09:36 Dose: 1 tab Levothyroxine Sodium (Synthroid -) 150 mcg PO DAILY@0700 [facility] Last Admin: 09/29/17 06:07 Dose: 150 mcg Morphine Sulfate (Morphine Sulfate) 2 mg IVPUSH Q4H PRN PRN Reason: PAIN Last Admin: 09/25/17 09:57 Dose: 2 mg Pantoprazole Sodium (Protonix -) 20 mg PO DAILY [facility] Last Admin: 09/29/17 09:35 Dose: 20 mg Polyethylene Glycol (Miralax (For Daily Use) -) 17 gm PO DAILY [facility] Last Admin: 09/29/17 10:14 Dose: 17 grams Quetiapine Fumarate (Seroquel -) 50 mg PO BID [facility] Last Admin: 09/29/17 09:36 Dose: 50 mg Trazodone HCl (Desyrel -) 25 mg PO HS [facility] Last Admin: 09/28/17 22:07 Dose: 25 mg - Objective Vital Signs: Vital Signs Temperature 99.1 F 09/29/17 14:02 Pulse Rate 107 H 09/29/17 14:02 Respiratory Rate 18 09/29/17 14:02 Blood Pressure 104/76 09/29/17 14:02 O2 Sat by Pulse Oximetry (%) 94 L 09/29/17 09:00 Constitutional: Yes: No Distress, Calm Eyes: Yes: Conjunctiva Clear Neck: Yes: Trachea Midline Cardiovascular: Yes: S1, S2 Respiratory: Yes: CTA Bilaterally, Diminished Gastrointestinal: Yes: Normal Bowel Sounds Musculoskeletal: Yes: Back Pain Extremities: Yes: Deformity, Internal Rotation, Shortened Neurological: Yes: Confusion Labs: CBC, BMP 09/27/17 06:00 09/28/17 05:17 INR, PTT INR 1.19 (0.82-1.09) H 09/25/17 02:23 Problem List - Problems (1) Acute kidney failure Code(s): N17.9 - ACUTE KIDNEY FAILURE, UNSPECIFIED (2) Anemia Code(s): D64.9 - ANEMIA, UNSPECIFIED Qualifiers: Anemia type: unspecified type Qualified Code(s): D64.9 - Anemia, unspecified (3) Fracture of left hip Code(s): S72.002A - FRACTURE OF UNSP PART OF NECK OF LEFT FEMUR, INIT Qualifiers: Encounter type: initial encounter Fracture type: closed Qualified Code(s) : S72.002A - Fracture of unspecified part of neck of left femur, initial encounter for closed fracture (4) UTI (urinary tract infection) Code(s): N39.0 - URINARY TRACT INFECTION, SITE NOT SPECIFIED Qualifiers: Urinary tract infection type: acute cystitis Hematuria presence: without hematuria Qualified Code(s): N30.00 - Acute cystitis without hematuria Assessment/Plan 76 year old woman with PMhx of Dementia, Frequent falls, Right Femoral Head Fx 09/05/2017 presented with fall with left femoral fracture . Acute on Chronic Renal Insufficiency The renal functions have improved to her baseline. The CT scan ordered to evaluate the Chronic unilateral Hydronephrosis is pending. Hyponatremia Has improved to normal. Oral intake as tolerated Hip Fracture pain control The patient needs surgery. Anemia (acute on chronic). Seems stable at this point. Chronic Hydronephrosis. Awaiting CT scan. Dementia supportive care Will follow with you. Yolanda Steve MD
[2017-09-29] MEDS: SODIUM CHLORIDE 1,000 ML IV SCH (21:48)
[2017-09-29] MEDS: DOCUSATE SODIUM 100 MG CAPSULE (FP) PO SCH (21:48)
[2017-09-29] MEDS: traZODone HCL 50 MG TABLET (FP) PO SCH (21:49)
[2017-09-30] MEDS: LEVOTHYROXINE NA 75 MCG TABLET (FP) PO SCH (06:09)
[2017-09-30 07:25] LABS: BASOPHIL 0.6 % (0-2.0); EOSINOPHIL 1.6 % (0-4.5); MCH 28.9 pg (25.7-33.7); MCHC 33.7 g/dl (32.0-36.0); MEAN CELL VOLUME 85.6 fl (80-96); MEAN PLT VOLUME 7.6 fl (7.5-11.1); NEUTROPHILS 76.5 % (42.8-82.8); PLATELET COUNT 386 K/MM3 (134-434); RDW 15.8 % (11.6-15.6); WHITE BLOOD COUNT 8.8 K/mm3 (4.0-10.0)
[2017-09-30 08:02] LABS: ALBUMIN 1.7 g/dl (3.4-5.0); ANION GAP 11 (8-16); CALCIUM 7.2 mg/dL (8.5-10.1); CO2 24 mmol/L (21-32); GLUCOSE,RANDOM 109 mg/dL (74-106)
[2017-09-30 08:06] LABS: ALK PHOS 87 U/L (45-117); BILIRUBIN,TOTAL 0.3 mg/dL (0.2-1.0); CREATININE 0.9 mg/dL (0.55-1.02); SGOT/AST 53 U/L (15-37); SGPT/ALT 74 U/L (12-78); TOT PROT 5.4 g/dl (6.4-8.2)
[2017-09-30] MEDS: AMINO ACIDS/PROTEIN HYDROLYS 30 ML LIQUID.PKT PO SCH ×2 (08:16→11:28)
[2017-09-30] MEDS: CEPHALEXIN MONOHYDRATE 500 MG CAPSULE (UD) PO SCH ×3 (09:00→21:18)
[2017-09-30] MEDS: FERROUS SO4 325 MG TABLET (FP) PO SCH ×2 (09:18→11:28)
[2017-09-30] MEDS: LACTOBACILLUS ACIDOPHILUS 1 EACH TAB (FP) PO SCH ×3 (09:18→21:18)
[2017-09-30] MEDS: PANTOPRAZOLE 20 MG TABLET (FP) PO SCH ×2 (09:19→11:28)
[2017-09-30] MEDS: POLYETHYLENE GLYCOL 3350 119 GM BTL PO SCH (09:19)
[2017-09-30] MEDS: ASCORBIC ACID 500 MG TABLET (FP) PO SCH ×2 (09:19→11:28)
[2017-09-30] MEDS: QUEtiapine FUMARATE 25 MG TABLET (FP) PO SCH ×3 (09:19→21:18)
[2017-09-30] MEDS ORDERED: POTASSIUM CHLORIDE 20 MEQ PREMIX IVPB 100 ML IVPB ONE (09:25)
[2017-09-30] MEDS: CEFTRIAXONE 1 G/50 ML PREMIX 50 ML IVPB SCH (09:25)
[2017-09-30] MEDS: SODIUM CHLORIDE 1,000 ML IV SCH (09:28)
[2017-09-30] MEDS ORDERED: KCL 20 MEQ PREMIX BAG 100 ML IVPB ONE (09:30)
--- NOTE | 2017-09-30 09:46 | PN ---
Progress Note (short form) - Note Progress Note: Patient refusing surgery for hip. Discussed in detail with patient but refusing surgery. - Current Medication List Current Medications: Active Medications Amino Acids (Prosource No Carb Liquid Pkt) 30 ml PO DAILY@0800 [facility] Last Admin: 09/29/17 09:36 Dose: 30 ml Ascorbic Acid (Vitamin C -) 500 mg PO DAILY [facility] Last Admin: 09/29/17 09:36 Dose: Not Given Docusate Sodium (Colace -) 300 mg PO HS [facility] Last Admin: 09/28/17 22:08 Dose: Not Given Ferrous Sulfate (Feosol -) 325 mg PO DAILY [facility] Last Admin: 09/29/17 09:36 Dose: Not Given Sodium Chloride (Normal Saline -) 1,000 mls @ 75 mls/hr IV ASDIR [facility] Last Admin: 09/28/17 22:08 Dose: 75 mls/hr CEFTRIAXONE 1 G/50 ML PREMIX (Ceftriaxone 1 Gm-D5w Bag) 50 mls @ 100 mls/hr IVPB DAILY [facility] Last Admin: 09/29/17 10:14 Dose: 100 mls/hr Lactobacillus Acidophilus (Bacid -) 1 tab PO BID [facility] Last Admin: 09/29/17 09:36 Dose: 1 tab Levothyroxine Sodium (Synthroid -) 150 mcg PO DAILY@0700 [facility] Last Admin: 09/29/17 06:07 Dose: 150 mcg Morphine Sulfate (Morphine Sulfate) 2 mg IVPUSH Q4H PRN PRN Reason: PAIN Last Admin: 09/25/17 09:57 Dose: 2 mg Pantoprazole Sodium (Protonix -) 20 mg PO DAILY [facility] Last Admin: 09/29/17 09:35 Dose: 20 mg Polyethylene Glycol (Miralax (For Daily Use) -) 17 gm PO DAILY [facility] Last Admin: 09/29/17 10:14 Dose: 17 grams Quetiapine Fumarate (Seroquel -) 50 mg PO BID [facility] Last Admin: 09/29/17 09:36 Dose: 50 mg Trazodone HCl (Desyrel -) 25 mg PO HS [facility] Last Admin: 09/28/17 22:07 Dose: 25 mg - Objective Vital Signs: Vital Signs Period Temp Pulse Resp BP Sys/Pierce Pulse Ox Last 24 Hr 98.2 F-99.1 F 95-114 18-20 104-121/70-76 95 Constitutional: Yes: No Distress, Calm Neck: Yes: Supple, Trachea Midline Cardiovascular: Yes: Regular Rate and Rhythm, S1, S2. No: Murmur Respiratory: Yes: Regular, CTA Bilaterally. No: Rales, Rhonchi, Wheezes Gastrointestinal: Yes: Normal Bowel Sounds, Soft. No: Distention, Tenderness Edema: No Neurological: Yes: Alert, Oriented Labs: CBC, BMP 09/30/17 06:45 09/30/17 06:45 Assessment/Plan Current Active Problems Anemia (Acute) Fracture of left hip (Acute) UTI (urinary tract infection) (Acute) FRANCO, now resolved hypothyroid -Refusing surgery -Replete potassium -CT abdomen & pelvis to be done today before transfer back to [place]. -Transfer back to [place] after CTA&P.
[2017-09-30] MEDS ORDERED: POTASSIUM CHLORIDE 20 MEQ in SODIUM CHLORIDE 250 ML IVPB SCH (10:00)
--- NOTE | 2017-09-30 18:13 | PN ---
Progress Note (short form) - Note Progress Note: Renal follow up for EVARISTO Pt seen and examined at the bedside awake and alert s/p CT of the Abd/Pelvis making urine no sob, chest pain Vital Signs Temperature 98.0 F 09/30/17 14:00 Pulse Rate 102 H 09/30/17 14:00 Respiratory Rate 17 09/30/17 14:00 Blood Pressure 103/71 09/30/17 14:00 O2 Sat by Pulse Oximetry (%) 95 09/30/17 09:00 Intake & Output 09/27/17 09/28/17 09/29/17 09/30/17 23:59 23:59 23:59 23:59 Intake Total 1350 1825 2300 2620 Output Total 1750 1500 1175 600 Balance -840 189 8063 2020 NAD, awake and alert RRR CTA soft NT/ND No LE edema CBC, BMP 09/30/17 06:45 09/30/17 06:45 Current Medications Amino Acids (Prosource No Carb Liquid Pkt) 30 ml PO DAILY@0800 [facility] Last Admin: 09/30/17 11:28 Dose: 30 ml Ascorbic Acid (Vitamin C -) 500 mg PO DAILY [facility] Last Admin: 09/30/17 11:28 Dose: 500 mg Cephalexin HCl (Keflex -) 500 mg PO BID [facility] Last Admin: 09/30/17 11:28 Dose: 500 mg Docusate Sodium (Colace -) 300 mg PO HS [facility] Last Admin: 09/29/17 21:48 Dose: Not Given Ferrous Sulfate (Feosol -) 325 mg PO DAILY [facility] Last Admin: 09/30/17 11:28 Dose: 325 mg Lactobacillus Acidophilus (Bacid -) 1 tab PO BID [facility] Last Admin: 09/30/17 11:28 Dose: 1 tab Levothyroxine Sodium (Synthroid -) 150 mcg PO DAILY@0700 [facility] Last Admin: 09/30/17 06:09 Dose: Not Given Morphine Sulfate (Morphine Sulfate) 2 mg IVPUSH Q4H PRN PRN Reason: PAIN Last Admin: 09/25/17 09:57 Dose: 2 mg Pantoprazole Sodium (Protonix -) 20 mg PO DAILY [facility] Last Admin: 09/30/17 11:28 Dose: 20 mg Polyethylene Glycol (Miralax (For Daily Use) -) 17 gm PO DAILY [facility] Last Admin: 09/30/17 09:19 Dose: Not Given Quetiapine Fumarate (Seroquel -) 50 mg PO BID [facility] Last Admin: 09/30/17 11:29 Dose: 50 mg Trazodone HCl (Desyrel -) 25 mg PO HS [facility] Last Admin: 09/29/17 21:49 Dose: Not Given 76 year old woman with PMhx of Dementia, Frequent falls, Right Femoral Head Fx 09/05/2017 (refused Sx) presented with fall with left femoral fracture with BUN/ Cr of 64/1.9. #Acute on Chronic Renal Insufficiency Renal function improved and stable CT of the Abd showed Chronic appearing hydronephrosis with stones no aucte intervention needed but will need urology follow up as a outpatient #Rectal Lesion seen on CT will need GI follow up as outpatient #Hip Fracture pt refusing surgery Thank you Will follow
[2017-09-30] MEDS: traZODone HCL 50 MG TABLET (FP) PO SCH (21:18)
[2017-09-30] MEDS: DOCUSATE SODIUM 100 MG CAPSULE (FP) PO SCH (21:19)
[2017-10-01] MEDS: LEVOTHYROXINE NA 75 MCG TABLET (FP) PO SCH (06:10)
[2017-10-01] MEDS: AMINO ACIDS/PROTEIN HYDROLYS 30 ML LIQUID.PKT PO SCH (07:42)
[2017-10-01 08:33] LABS: ANION GAP 9 (8-16); CALCIUM 7.6 mg/dL (8.5-10.1); CO2 27 mmol/L (21-32); CREATININE 0.9 mg/dL (0.55-1.02); GLUCOSE,RANDOM 120 mg/dL (74-106)
[2017-10-01] MEDS: POLYETHYLENE GLYCOL 3350 119 GM BTL PO SCH (10:58)
[2017-10-01] MEDS ORDERED: PT OWN MED DRAWER 7, Y5N ONE (11:00)
[2017-10-01] MEDS: QUEtiapine FUMARATE 25 MG TABLET (FP) PO SCH (11:02)
[2017-10-01] MEDS: LACTOBACILLUS ACIDOPHILUS 1 EACH TAB (FP) PO SCH (11:02)
[2017-10-01] MEDS: CEPHALEXIN MONOHYDRATE 500 MG CAPSULE (UD) PO SCH (11:02)
[2017-10-01] MEDS: ASCORBIC ACID 500 MG TABLET (FP) PO SCH (11:03)
[2017-10-01] MEDS: PANTOPRAZOLE 20 MG TABLET (FP) PO SCH (11:03)
[2017-10-01] MEDS: FERROUS SO4 325 MG TABLET (FP) PO SCH (11:03)
--- NOTE | 2017-10-01 11:50 | PN ---
Progress Note (short form) - Note Progress Note: Patient refusing surgery for hip. CT abdomen and pelvis results noted. No acute event overnight. Afebrile. Current Medications Amino Acids (Prosource No Carb Liquid Pkt) 30 ml PO DAILY@0800 [facility] Last Admin: 10/01/17 07:42 Dose: 30 ml Ascorbic Acid (Vitamin C -) 500 mg PO DAILY [facility] Last Admin: 10/01/17 11:03 Dose: Not Given Cephalexin HCl (Keflex -) 500 mg PO BID [facility] Last Admin: 10/01/17 11:02 Dose: 500 mg Docusate Sodium (Colace -) 300 mg PO [facility] Last Admin: 09/30/17 21:19 Dose: 300 mg Ferrous Sulfate (Feosol -) 325 mg PO DAILY [facility] Last Admin: 10/01/17 11:03 Dose: Not Given Lactobacillus Acidophilus (Bacid -) 1 tab PO BID [facility] Last Admin: 10/01/17 11:02 Dose: 1 tab Levothyroxine Sodium (Synthroid -) 150 mcg PO DAILY@0700 [facility] Last Admin: 10/01/17 06:10 Dose: 150 mcg Pantoprazole Sodium (Protonix -) 20 mg PO DAILY [facility] Last Admin: 10/01/17 11:03 Dose: 20 mg Potassium Chloride (K-Dur -) 40 meq PO Q1H [facility] Stop: 10/01/17 12:31 Potassium Chloride (K-Dur -) 20 meq PO DAILY [facility] Quetiapine Fumarate (Seroquel -) 50 mg PO BID [facility] Last Admin: 10/01/17 11:02 Dose: 50 mg Trazodone HCl (Desyrel -) 25 mg PO [facility] Last Admin: 09/30/17 21:18 Dose: 25 mg - Objective Vital Signs: Vital Signs Period Temp Pulse Resp BP Sys/Pierce Pulse Ox Last 24 Hr 98.0 F-98.9 F 102-105 17-21 101-105/60-71 96 Constitutional: Yes: No Distress, Calm Neck: Yes: Supple, Trachea Midline Cardiovascular: Yes: Regular Rate and Rhythm, S1, S2. No: Murmur Respiratory: Yes: Regular, CTA Bilaterally. No: Rales, Rhonchi, Wheezes Gastrointestinal: Yes: Normal Bowel Sounds, Soft. No: Distention, Tenderness Edema: No Neurological: Yes: Alert, Oriented Labs: CBC, BMP 09/30/17 06:45 10/01/17 07:50 Assessment/Plan Current Active Problems Anemia (Acute) Fracture of left hip (Acute) UTI (urinary tract infection) (Acute) FRANCO, now resolved hypothyroid -Refusing surgery -Replete potassium -CT abdomen & pelvis reviewed. -Chronic right sided hydronephrosis - out patient urology follow up. -Possible rectal mass - out patient GI follow up. -Patient will be transferred back to [facility].
--- NOTE | 2017-10-01 11:56 | DS ---
Physical Examination Vital Signs: Vital Signs Temperature 98.9 F 10/01/17 05:41 Pulse Rate 105 H 10/01/17 05:41 Respiratory Rate 19 10/01/17 05:41 Blood Pressure 105/60 10/01/17 05:41 O2 Sat by Pulse Oximetry (%) 96 09/30/17 19:54 Labs: CBC, BMP 09/30/17 06:45 10/01/17 07:50 Discharge Summary Reason For Visit: URINARY TRACT INFECTION,ANEMIA,FRACTUREOF LEFT HIP Current Active Problems Acute kidney failure (Acute) Anemia (Acute) Fracture of left hip (Acute) UTI (urinary tract infection) (Acute) Hospital Course: Ms. Mares admitted with left hip fracture, s/p fall. Refusing surgery. Shw as also treated for Acute renal failure with IV fluids and treated for UTI with abx. She finished her course. Her CT A&P showed chronic right sided hydronephrosis which will require outpatient urology follow up. Possible rectal mass will also require outpatient GI follow up/opinion. She is stable to be discharged back to [place]. Anemia (Acute) Fracture of left hip (Acute) UTI (urinary tract infection) (Acute) FRANCO, now resolved hypothyroid -Refusing surgery -Replete potassium -CT abdomen & pelvis reviewed. -Chronic right sided hydronephrosis - out patient urology follow up. -Possible rectal mass - out patient GI follow up. -Patient will be transferred back to [facility]. Condition: Fair - Instructions Referrals: Francisco Ellis MD [Primary Care Provider] - Disposition: HALF-WAY FACILITY - Home Medications Comprehensive Discharge Medication List: Ambulatory Orders Aspirin [Neal Chewable Aspirin] 81 mg PO DAILY 09/04/17 Lactobacillus Acidophilus [Acidophilus] 1 each PO BID 09/04/17 Trazodone HCl 25 mg PO HS 09/04/17 Aa/Hydrolyzed Collagen, Whey [Lps Neutral Flavor Liquid] 30 ml PO DAILY Ascorbic Acid [Vitamin C -] 500 mg PO TID 09/25/17 Ferrous Sulfate 325 mg PO TID 09/25/17 Heparin - 5,000 unit SQ BID 09/25/17 Levothyroxine [Synthroid -] 150 mcg PO ACBK 09/25/17 Omeprazole Magnesium [Prilosec] 20 mg PO ACBK 09/25/17 Potassium Chloride [K-Dur -] 20 meq PO DAILY 09/25/17 Quetiapine Fumarate [Seroquel -] 37.5 mg PO BID 09/25/17
[2017-10-01] MEDS: POTASSIUM CHLORIDE TABS 20 MEQ TABLET.ER (FP) PO SCH ×2 (12:04→14:26)
[2017-10-01 12:18] LABS: MAGNESIUM 2.1 mg/dL (1.8-2.4)
[2017-10-01 14:06] VITALS: BP 99/65; PULSE 100; TEMP 98.2
[2017-10-02] MEDS ORDERED: POTASSIUM CHLORIDE TABS 10 MEQ TABLET.ER (FP) PO SCH (10:00)
== END 2017-10-01 17:48 | DRG 682 ==
LOC: JER 23:34 → SUPCPDRO 23:34 → JERBED 09-25 03:29 → UNDOADMIN 09-25 03:29 → JERBED 09-25 03:58 → J8W 09-25 05:00 → J6S 09-25 20:22
PROVIDERS: ADMIT Internal Medicine Geriatric Medicine; ATTEND Internal Medicine Geriatric Medicine
PROC: 30233N1 Transfusion of Nonautologous Red Blood Cells into Peripheral Vein, Percutaneous Approach (ICD-10-PCS; principal; 2017-09-25)
DX: N17.9 Acute kidney failure, unspecified (principal); S72.092A Other fracture of head and neck of left femur, initial encounter for closed fracture; N39.0 Urinary tract infection, site not specified; E87.1 Hypo-osmolality and hyponatremia; N13.39 Other hydronephrosis; W18.39XA Other fall on same level, initial encounter; Y93.89 Activity, other specified; Y92.098 Other place in other non-institutional residence as the place of occurrence of the external cause; E03.9 Hypothyroidism, unspecified; K21.9 Gastro-esophageal reflux disease without esophagitis; D64.9 Anemia, unspecified; E87.6 Hypokalemia; F41.8 Other specified anxiety disorders; F03.90 Unspecified dementia, unspecified severity, without behavioral disturbance, psychotic disturbance, mood disturbance, and anxiety; N18.9 Chronic kidney disease, unspecified; K63.9 Disease of intestine, unspecified
CPT/HCPCS: 36415; 36430; 71010-TC; 73523-TC; 74176-TC; 76775-TC; 80048; 80053; 81003; 81015; 82550; 82570; 83605; 83735; 83880; 84100; 84156; 84300; 84484; 84540; 85025; 85610; 85730; 86850; 86900; 86901; 86922; 87086; 87186; 87324; 87449; 93005; 93010; 99282-25; P9038; P9058

== ENCOUNTER 2017-11-15 09:50 | Inpatient (IN) | payer OTHER ==
--- NOTE | 2017-11-15 10:15 | PDOC ---
History of Present Illness - General History Source: [facility] Records, Old Records Exam Limitations: Dementia - History of Present Illness Initial Comments: 11/15/17 10:54 The patient is a 76-year-old female, with a significant past medical history of anemia, CAD, GERD, hypokalemia, early dementia, c-diff, who [facility]. The patient was found unconscious in the bathroom this morning. She was noted to have low O2 saturation and was placed on O2. The patient has no memory of the incident. On exam, she reports that she is experiencing diarrhea. HPI is limited due to patients dementia. PCP: Dr. Ellis Surgical Hx: Right Hip Surgery <Aisha Teixeira - Last Filed: 11/15/17 17:18> <Ronny Haskins - Last Filed: 11/15/17 18:40> - General Chief Complaint: Shortness of Breath Stated Complaint: RESPIRATORY DISTRESS Time Seen by Provider: 11/15/17 10:15 Past History <Aisha Teixeira - Last Filed: 11/15/17 17:18> - Past Medical History Anemia: Yes COPD: No GI Disorders: Yes (gerd) Psychiatric Problems: Yes (restlessness and agitation, psychosis.) Thyroid Disease: Yes (hypo) - Surgical History Abdominal Surgery: No Appendectomy: No Cardiac Surgery: No Cholecystectomy: No Lung Surgery: No Neurologic Surgery: No Orthopedic Surgery: (YES; RIGHT HIP SURGERY) - Suicide/Smoking/Psychosocial Hx Smoking History: Unknown if ever smoked Have you smoked in the past 12 months: No Information on smoking cessation initiated: No Hx Alcohol Use: No Drug/Substance Use Hx: No Substance Use Type: None Hx Substance Use Treatment: No <Ronny Haskins - Last Filed: 11/15/17 18:40> - Past Medical History Allergies/Adverse Reactions: Allergies Allergy/AdvReac Type Severity Reaction Status Date / Time No Known Allergies Allergy Verified 11/15/17 10:15 Home Medications: Ambulatory Orders Aa/Hydrolyzed Collagen, Whey [Lps Neutral Flavor Liquid] 30 ml PO BID 11/15/17 Acetaminophen [Tylenol] 650 mg PO Q6H PRN 11/15/17 Ascorbic Acid [Vitamin C -] 500 mg PO TID 11/15/17 Aspirin [Aspirin EC] 81 mg PO DAILY 11/15/17 Bacitracin - [Bacitracin Topical Ointment -] 1 applic TP DAILY 11/15/17 Docusate Sodium [Colace -] 300 mg PO HS 11/15/17 Ferrous Sulfate [Feosol] 325 mg PO TID 11/15/17 Heparin - 5,000 unit SQ BID 11/15/17 Lactobacillus Acidophilus [Acidophilus] 1 each PO BID 11/15/17 Levothyroxine Sodium [Levoxyl] 150 mcg PO DAILY 11/15/17 Omeprazole Magnesium [Prilosec Otc] 20 mg PO DAILY 11/15/17 Oseltamivir Phosphate [Tamiflu] 75 mg PO DAILY 11/15/17 Potassium Chloride [K-Dur -] 40 meq PO DAILY 11/15/17 Quetiapine Fumarate [Seroquel -] 50 mg PO BID 11/15/17 Sennosides [Senna] 2 tab PO DAILY 11/15/17 Trazodone HCl 25 mg PO HS 11/15/17 Review of Systems - Review of Systems Comments:: 11/15/17 10:55 ROS unable to obtain due to the patient's dementia. <Aisha Teixeira - Last Filed: 11/15/17 17:18> *Physical Exam - Vital Signs Last Vital Signs Temp Pulse Resp BP Pulse Ox 98.4 F 89 18 102/70 99 11/15/17 10:31 11/15/17 10:06 11/15/17 10:06 11/15/17 10:06 11/15/17 10:06 - Physical Exam Comments: 11/15/17 10:57 Vitals: Triage Vital signs reviewed General Appearance: no acute distress. Head: Atraumatic, normocephalic Throat: +Dry mucous membranes. Posterior oropharynx without erythema. Neck: Supple;No Nuchal rigidity Chest Wall: Nontender Cardiac: Regular rate and rhythm, no murmurs, no rubs, no gallops, Lungs: Clear to auscultation bilateral, good air movement bilaterally, Abdomen: Soft, nondistended, normal bowel sounds, nontender to palpation Rectal: Exam deferred Extremities: Full range of motion to all extremities, no clubbing, or edema Skin: +Bruising noted on right leg. Warm and dry. Neuro: Cranial Nerves 2-12 grossly intact, Strength intact to all extremities, Sensation intact to all extremities Psych: normal mood, normal affect <Aisha Teixeira - Last Filed: 11/15/17 17:18> - Vital Signs Last Vital Signs Temp Pulse Resp BP Pulse Ox 97.9 F 89 18 102/70 99 11/15/17 10:06 11/15/17 10:06 11/15/17 10:06 11/15/17 10:06 11/15/17 10:06 <Ronny Haskins - Last Filed: 11/15/17 18:40> Heart Score/ECG Review - ECG Intrepretation Comment:: 11/15/17 17:18 EKG performed at 10:04 demonstrates rate of 87 bpm, rhythm of normal sinus rhythm, axis equal to normal. Additional findings include: Possible left atrial enlargement. Junctional ST depression, probably normal. <Aisha Teixeira - Last Filed: 11/15/17 17:18> ED Treatment Course - LABORATORY CBC & Chemistry Diagram: 11/15/17 10:20 11/15/17 10:20 <Aisha Teixeira - Last Filed: 11/15/17 17:18> - LABORATORY CBC & Chemistry Diagram: 11/15/17 10:20 11/15/17 16:50 <Jozef,Ronny - Last Filed: 11/15/17 18:40> Medical Decision Making - Medical Decision Making 11/15/17 12:00 Reevaluation: Received call from lab stating that patient's blood results were abnormal. 11/15/17 12:15 Dr. Jeffery was paged and notified via phone service. Second page for Dr. Jeffery was placed at 12:41. Call returned at 12:44, Dr. Machuca will be called instead. 11/15/17 12:21 Dr. Ellis was contacted via phone service, message was left. 11/15/17 12:23 Dr. Machado was paged overhead. Second overhead page was placed at 12:55. Microblog was sent at 13:00. Call was returned at 1:20, Dr. Machado will accept the patient for ICU. 11/15/17 12:30 Dr. Araiza was called on cell and message was left. Called returned at 12:46, Dr. Heath saw patient in ER. The patient will be consulted by Dr. Heath. 11/15/17 12:51 Dr. Machuca was paged and notified via phone service. Second page placed at 13:10, call returned at 13:13. <Aisha Teixeira - Last Filed: 11/15/17 17:18> - Critical Care Time Total Critical Care Time (minutes): 65 Critical Care Statement: The care of this patient involved high complexity decision making to prevent further life threatening deterioration of the patient 's condition and/or to evaluate & treat vital organ system(s) failure or risk of failure. - Medical Decision Making Laboratory analysis concerning for severe hyponatremia and hypokalemia and slightly elevated white blood cell count Central line placed patient verbally consented was unable to sign secondary to lethargy and altered mental status see procedure note Hypertonic saline ordered. IV KCL ordered Nephrology has been consult it ICU has been consulted, and infectious diseases been consulted given history of VRE C. difficile and slightly elevated white blood cell count Patient started on Zosyn Patient admitted to ICU by Dr. Vish Machuca to consult <Ronny Haskins - Last Filed: 11/15/17 18:40> *DC/Admit/Observation/Transfer - Attestations Scribe Attestion: 11/15/17 11:05 Documentation prepared by Aisha Teixeira, acting as medical director for Ronny Haskins MD. <Aisha Teixeira - Last Filed: 11/15/17 17:18> - Discharge Dispostion Admit: Yes <Ronny Haskins - Last Filed: 11/15/17 18:40> Diagnosis at time of Disposition: Hyponatremia - Discharge Dispostion Condition at time of disposition: Critical
[2017-11-15 11:20] LABS: BASO % 0.3 % (0-2.0); EOS % 0.1 % (0-4.5); HEMOGLOBIN 13.4 GM/dL (10.7-15.3); LYMPH % 7.6 % (8-40); MCH 25.2 pg (25.7-33.7); MCHC 32.8 g/dl (32.0-36.0); MEAN CELL VOLUME 76.8 fl (80-96); MEAN PLT VOLUME 9.3 fl (7.5-11.1); MONO % 3.9 % (3.8-10.2); NEUT % 88.1 % (42.8-82.8); PLATELET COUNT 493 K/MM3 (134-434); RBC 5.34 M/mm3 (3.60-5.2); RDW 16.7 % (11.6-15.6); URINE APPEARANCE CLOUDY; URINE BILIRUBIN NEGATIVE (NEGATIVE); URINE BLOOD 1+ (NEGATIVE); URINE COLOR YELLOW; URINE GLUCOSE (UA) NEGATIVE (NEGATIVE); URINE KETONE NEGATIVE (NEGATIVE); URINE NITRITE NEGATIVE (NEGATIVE); URINE UROBILINOGEN NEGATIVE mg/dL (0.2-1.0); WHITE BLOOD COUNT 12.5 K/mm3 (4.0-10.0)
[2017-11-15 11:25] LABS: URINE LEUK ESTERASE 3+ (NEGATIVE); URINE PROTEIN 1+ (NEGATIVE)
[2017-11-15 11:33] LABS: CALCIUM OXALATE CRYSTALS RARE /hpf (NONE SEEN); EPI CELLS RARE /HPF (FEW); URINE HYALINE CAST 3 /lpf; URINE MUCUS RARE; YEAST FEW
[2017-11-15 11:34] LABS: PROTHROMBIN TIME (PATIENT) 11.3 SEC (9.98-11.88)
[2017-11-15 11:37] LABS: ACTIVATED PTT 26.7 SECONDS (26.9-34.4)
[2017-11-15 11:42] LABS: ALK PHOS 188 U/L (45-117); ANION GAP 27 (8-16); BILIRUBIN,TOTAL 0.4 mg/dL (0.2-1.0); CALCIUM 8.1 mg/dL (8.5-10.1); CHLORIDE 66 mmol/L (98-107); CO2 16 mmol/L (21-32); CREATININE 3.4 mg/dL (0.55-1.02); GLUCOSE,RANDOM 188 mg/dL (74-106); SGOT/AST 14 U/L (15-37); SGPT/ALT 19 U/L (12-78); TOT PROT 9.2 g/dl (6.4-8.2)
[2017-11-15 11:43] LABS: N-TERMINAL BNP 644.57 pg/ml (5-125)
[2017-11-15 11:54] LABS: BLOOD UREA NITROGEN 85 mg/dL (7-18)
[2017-11-15 11:59] LABS: SODIUM 109 mmol/L (136-145)
[2017-11-15 12:00] LABS: POTASSIUM 2.9 mmol/L (3.5-5.1)
[2017-11-15] MEDS ORDERED: SODIUM CHLORIDE 3% 500 ML/500 ML INFUS.BAG IV ONE ×3 (12:05→13:49)
[2017-11-15] MEDS: KCL 10 MEQ IVPB 10 MEQ/100 ML INFUS.BAG IVPB SCH ×3 (12:38→14:37)
[2017-11-15] MEDS ORDERED: ONDANSETRON 4 MG/2 ML VIAL ONE (12:39)
[2017-11-15] MEDS ORDERED: MIDAZOLAM HCL 2 MG/2 ML SINGLE DOSE VIAL IVPUSH ONE ×2 (12:40→12:54)
[2017-11-15] MEDS ORDERED: MIDAZOLAM HCL 2 MG/2 ML SINGLE DOSE VIAL ONE ×2 (12:41→12:50)
[2017-11-15] MEDS ORDERED: ONDANSETRON 4 MG/2 ML VIAL IVPUSH ONE (12:45)
[2017-11-15] MEDS ORDERED: LIDOCAINE HCL 2% (20ML MULTI-DOSE VIAL) NR ONE (13:04)
[2017-11-15] MEDS ORDERED: PIPERACILLIN/TAZOBACTAM 2.25 GM VIAL IVPB ONE (13:16)
[2017-11-15] MEDS ORDERED: PIPERACILLIN/TAZOB 2.25 GM/50 ML PREMIX BAG IVPB ONE (13:25)
[2017-11-15] MEDS ORDERED: SODIUM CHLORIDE 1,000 ML IV ONE (13:36)
[2017-11-15] MEDS ORDERED: DESMOPRESSIN ACETATE 4 MCG/ML AMP IVPB ONE ×2 (13:52→18:00)
--- NOTE | 2017-11-15 13:54 | HP ---
Admitting History and Physical - Primary Care Physician PCP: Francisco Ellis - Admission Chief Complaint: unable to obtain History of Present Illness: 76 year old female with history of Dementia, frequent falls, hypothyroidism, Anemia and Left hip fracture(refused surgery) brought in from [facility] s/p fall/syncope and diarrhea. Unable to obtain further history due to pt 's mental status. 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 Renal/: Yes: UTI, Other (Chronic Right hydronephrosis) Heme/Onc: Yes: Anemia Endocrine: Yes: Hypothyroidism - Smoking History Smoking history: Unknown if ever smoked Have you smoked in the past 12 months: No - Alcohol/Substance Use Hx Alcohol Use: No - Social History Usual Living Arrangement: Yes: Prison Home Medications - Allergies Allergies/Adverse Reactions: Allergies Allergy/AdvReac Type Severity Reaction Status Date / Time No Known Allergies Allergy Verified 11/15/17 10:15 - Home Medications Home Medications: Ambulatory Orders Aa/Hydrolyzed Collagen, Whey [Lps Neutral Flavor Liquid] 30 ml PO BID 11/15/17 Acetaminophen [Tylenol] 650 mg PO Q6H PRN 11/15/17 Ascorbic Acid [Vitamin C -] 500 mg PO TID 11/15/17 Aspirin [Aspirin EC] 81 mg PO DAILY 11/15/17 Bacitracin - [Bacitracin Topical Ointment -] 1 applic TP DAILY 11/15/17 Docusate Sodium [Colace -] 300 mg PO HS 11/15/17 Ferrous Sulfate [Feosol] 325 mg PO TID 11/15/17 Heparin - 5,000 unit SQ BID 11/15/17 Lactobacillus Acidophilus [Acidophilus] 1 each PO BID 11/15/17 Levothyroxine Sodium [Levoxyl] 150 mcg PO DAILY 11/15/17 Omeprazole Magnesium [Prilosec Otc] 20 mg PO DAILY 11/15/17 Oseltamivir Phosphate [Tamiflu] 75 mg PO DAILY 11/15/17 Potassium Chloride [K-Dur -] 40 meq PO DAILY 11/15/17 Quetiapine Fumarate [Seroquel -] 50 mg PO BID 11/15/17 Sennosides [Senna] 2 tab PO DAILY 11/15/17 Trazodone HCl 25 mg PO HS 11/15/17 Family Disease History - Family Disease History Family History: Unable to Obtain Physical Examination Vital Signs: Vital Signs Temperature 98.4 F 11/15/17 10:31 Pulse Rate 88 11/15/17 13:15 Respiratory Rate 16 11/15/17 13:15 Blood Pressure 110/71 11/15/17 13:15 O2 Sat by Pulse Oximetry (%) 97 11/15/17 13:15 Constitutional: Yes: Calm, Thin Cardiovascular: Yes: WNL, Regular Rate and Rhythm Respiratory: Yes: WNL, CTA Bilaterally, Diminished, On Nasal O2 Gastrointestinal: Yes: Normal Bowel Sounds, Soft. No: Distention Edema: No Integumentary: Yes: WNL Labs: CBC, BMP 11/15/17 10:20 11/15/17 10:20 Imaging - Results Chest X-ray: Report Reviewed X-ray: Report Reviewed Cat Scan: Report Reviewed Problem List - Problems (1) Acute hyponatremia Assessment/Plan: Pt found to have severe hypovolemic hyponatremia with altered mental status Nephrology consulted Urine Na, Osm pending 1L NS bolus given NS 3% 24mL/hr, DDAVP Monitor Na level Transfer to ICU for further management Code(s): E87.1 - HYPO-OSMOLALITY AND HYPONATREMIA (2) Acute metabolic encephalopathy Assessment/Plan: Secondary to severe hyponatremia Treat hyponatremia per Nephrology recommendations ID consulted Code(s): G93.41 - METABOLIC ENCEPHALOPATHY (3) Acute hypokalemia Assessment/Plan: Secondary to diarrhea, fluid loss Replete as needed Code(s): E87.6 - HYPOKALEMIA (4) Acute kidney failure Assessment/Plan: Most likely pre renal IVF hydration Urine Na, Osm pending Consider renal US, will discuss with Nephrology Code(s): N17.9 - ACUTE KIDNEY FAILURE, UNSPECIFIED (5) Diarrhea Assessment/Plan: cause of diarrhea unknown c-diff test pending ID consulted Code(s): R19.7 - DIARRHEA, UNSPECIFIED (6) Hypotension Assessment/Plan: Secondary to fluid loss/hypovolemia IVF hydration Code(s): I95.9 - HYPOTENSION, UNSPECIFIED (7) Fall Assessment/Plan: s/p fall at SNF, xrays, head CT negative, chronic fracture of left hip( unchanged from previous CT) maintain bedrest at the moment Code(s): W19.XXXA - UNSPECIFIED FALL, INITIAL ENCOUNTER (8) Hypothyroidism Assessment/Plan: Holding Levothyroxine for now Code(s): E03.9 - HYPOTHYROIDISM, UNSPECIFIED (9) Anemia Assessment/Plan: hg/hct stable will continue to monitor Code(s): D64.9 - ANEMIA, UNSPECIFIED Qualifiers: Anemia type: unspecified type Qualified Code(s): D64.9 - Anemia, unspecified (10) Fracture of left hip Assessment/Plan: unchanged from previous CT in September Pt had refused surgery Code(s): S72.002A - FRACTURE OF UNSP PART OF NECK OF LEFT FEMUR, INIT Qualifiers: Encounter type: subsequent encounter Fracture type: closed
--- NOTE | 2017-11-15 14:11 | CON.ID ---
Consult Consult Specialty:: infectious diseases Reason for Consultation:: amd ,septicemia,uti,hyponatremia - History of Present Illness History of Present Illness: 76 year old female with history of Dementia, frequent falls, hypothyroidism, Anemia and Left hip fracture(refused surgery) brought in from [facility] s/p fall/syncope and diarrhea. Unable to obtain further history due to pt 's mental status. 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 - Alcohol/Substance Use Hx Alcohol Use: No - Smoking History Smoking history: Unknown if ever smoked Have you smoked in the past 12 months: No - Social History Usual Living Arrangement: Custodial Home Medications - Allergies Allergies/Adverse Reactions: Allergies Allergy/AdvReac Type Severity Reaction Status Date / Time No Known Allergies Allergy Verified 11/15/17 10:15 - Home Medications Home Medications: Ambulatory Orders Aa/Hydrolyzed Collagen, Whey [Lps Neutral Flavor Liquid] 30 ml PO BID 11/15/17 Acetaminophen [Tylenol] 650 mg PO Q6H PRN 11/15/17 Ascorbic Acid [Vitamin C -] 500 mg PO TID 11/15/17 Aspirin [Aspirin EC] 81 mg PO DAILY 11/15/17 Bacitracin - [Bacitracin Topical Ointment -] 1 applic TP DAILY 11/15/17 Docusate Sodium [Colace -] 300 mg PO HS 11/15/17 Ferrous Sulfate [Feosol] 325 mg PO TID 11/15/17 Heparin - 5,000 unit SQ BID 11/15/17 Lactobacillus Acidophilus [Acidophilus] 1 each PO BID 11/15/17 Levothyroxine Sodium [Levoxyl] 150 mcg PO DAILY 11/15/17 Omeprazole Magnesium [Prilosec Otc] 20 mg PO DAILY 11/15/17 Oseltamivir Phosphate [Tamiflu] 75 mg PO DAILY 11/15/17 Potassium Chloride [K-Dur -] 40 meq PO DAILY 11/15/17 Quetiapine Fumarate [Seroquel -] 50 mg PO BID 11/15/17 Sennosides [Senna] 2 tab PO DAILY 11/15/17 Trazodone HCl 25 mg PO HS 11/15/17 Review of Systems Unable to obtain ROS, reason: unable to obtain Physical Exam Vital Signs: Vital Signs Temperature 98.4 F 11/15/17 10:31 Pulse Rate 88 11/15/17 13:15 Respiratory Rate 16 11/15/17 13:15 Blood Pressure 110/71 11/15/17 13:15 O2 Sat by Pulse Oximetry (%) 97 11/15/17 13:15 Constitutional: Yes: Other Eyes: Yes: Conjunctiva Clear Cardiovascular: Yes: Regular Rate and Rhythm Respiratory: Yes: Regular, CTA Bilaterally Gastrointestinal: Yes: Normal Bowel Sounds, Soft Musculoskeletal: Yes: Other Extremities: Yes: Other Neurological: Yes: Confusion, Lethargy Psychiatric: Yes: Other Labs: CBC, BMP 11/15/17 10:20 11/15/17 10:20 Imaging - Results Chest X-ray: Report Reviewed, Image Reviewed X-ray: Report Reviewed, Image Reviewed Cat Scan: Report Reviewed, Image Reviewed Assessment/Plan Problem List - Problems (1) Acute hyponatremia Code(s): E87.1 - HYPO-OSMOLALITY AND HYPONATREMIA (2) Acute metabolic encephalopathy Code(s): G93.41 - METABOLIC ENCEPHALOPATHY (3) Acute hypokalemia Code(s): E87.6 - HYPOKALEMIA (4) Acute kidney failurey Code(s): N17.9 - ACUTE KIDNEY FAILURE, UNSPECIFIED (5) Diarrhea Code(s): R19.7 - DIARRHEA, UNSPECIFIED (6) Hypotension Code(s): I95.9 - HYPOTENSION, UNSPECIFIED (7) Fall Code(s): W19.XXXA - UNSPECIFIED FALL, INITIAL ENCOUNTER (8) Hypothyroidism Code(s): E03.9 - HYPOTHYROIDISM, UNSPECIFIED (9) Anemia Code(s): D64.9 - ANEMIA, UNSPECIFIED Qualifiers: Anemia type: unspecified type Qualified Code(s): D64.9 - Anemia, unspecified (10) Fracture of left hip Code(s): S72.002A - FRACTURE OF UNSP PART OF NECK OF LEFT FEMUR, INIT Qualifiers: Encounter type: subsequent encounter Fracture type: closed 11 sepsis patient also having dirrhoea plan will start patient on abx hydration close monitoring close watch on wbc and mental status rest as per icu hydration sodium correction cc time 45 min
[2017-11-15 14:26] LABS: MAGNESIUM 4.1 mg/dL (1.8-2.4)
[2017-11-15] MEDS ORDERED: ACETAMINOPHEN 650 MG SUPP.RECT PR PRN (14:43)
[2017-11-15 14:56] LABS: URINE CHLORIDE < 10 MEQ/L
--- NOTE | 2017-11-15 16:40 | CON.NEP ---
Consult Consult Specialty:: Nephrology Referred by:: Dr. Machado Reason for Consultation:: EVARISTO, Hyponatremia - History of Present Illness Chief Complaint: AMS History of Present Illness: This is a 76 year old woman with PMhx of CKD (Hx of EVARISTO, Hydronephrotic right Kidney), Dementia, Hypertension who presented from [place] with syncope and AMS as inpatient and found to have hyponatremia with serum Na of 109 and EVARISTO. Pt is not able to provide any history. ED staff reports that pt was awake initially and was able to answer some questions but MS deteriorated in the ED. Central line placed in the ED. 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 Renal/: Yes: UTI, Other (Chronic Right hydronephrosis) Endocrine: Yes: Hypothyroidism - Alcohol/Substance Use Hx Alcohol Use: No - Smoking History Smoking history: Unknown if ever smoked Have you smoked in the past 12 months: No - Social History Usual Living Arrangement: Long-Term Home Medications - Allergies Allergies/Adverse Reactions: Allergies Allergy/AdvReac Type Severity Reaction Status Date / Time No Known Allergies Allergy Verified 11/15/17 10:15 - Home Medications Home Medications: Ambulatory Orders Aa/Hydrolyzed Collagen, Whey [Lps Neutral Flavor Liquid] 30 ml PO BID 11/15/17 Acetaminophen [Tylenol] 650 mg PO Q6H PRN 11/15/17 Ascorbic Acid [Vitamin C -] 500 mg PO TID 11/15/17 Aspirin [Aspirin EC] 81 mg PO DAILY 11/15/17 Bacitracin - [Bacitracin Topical Ointment -] 1 applic TP DAILY 11/15/17 Docusate Sodium [Colace -] 300 mg PO HS 11/15/17 Ferrous Sulfate [Feosol] 325 mg PO TID 11/15/17 Heparin - 5,000 unit SQ BID 11/15/17 Lactobacillus Acidophilus [Acidophilus] 1 each PO BID 11/15/17 Levothyroxine Sodium [Levoxyl] 150 mcg PO DAILY 11/15/17 Omeprazole Magnesium [Prilosec Otc] 20 mg PO DAILY 11/15/17 Oseltamivir Phosphate [Tamiflu] 75 mg PO DAILY 11/15/17 Potassium Chloride [K-Dur -] 40 meq PO DAILY 11/15/17 Quetiapine Fumarate [Seroquel -] 50 mg PO BID 11/15/17 Sennosides [Senna] 2 tab PO DAILY 11/15/17 Trazodone HCl 25 mg PO HS 11/15/17 Family Disease History - Family Disease History Family History: Unable to Obtain Review of Systems Unable to obtain ROS, reason: because of clinical statu Nephrology Consult - Height Height: 5 ft - Weight Weight: 40.37 kg - BMI Body Mass Index (BMI): 17.4 - Lab Results CBC,BMP: CBC, BMP 11/15/17 10:20 11/15/17 10:20 Anion Gap: Anion Gap Anion Gap 27 (8-16) H 11/15/17 10:20 - Imaging Chest X-ray: Report Reviewed - Physical Examination Vital Signs: Vital Signs Temperature 98.4 F 11/15/17 10:31 Pulse Rate 89 11/15/17 15:39 Respiratory Rate 16 11/15/17 15:39 Blood Pressure 129/77 11/15/17 15:39 O2 Sat by Pulse Oximetry (%) 97 11/15/17 15:39 Constitutional: Yes: Thin, Other (Dry MM) Eyes: Yes: Conjunctiva Clear HENT: Yes: Atraumatic Neck: Yes: Supple Cardiovascular: Yes: Regular Rate and Rhythm, S1, S2. No: Bruit, JVD Respiratory: Yes: Regular, CTA Bilaterally Gastrointestinal: Yes: Normal Bowel Sounds, Soft, Tenderness, Rebound Renal/: Yes: Brown Present. No: Bladder Distention, CVA Tenderness - Left, CVA Tenderness - Right Edema: No Neurological: No: Alert, Oriented Assessment/Plan 76 year old woman with PMhx of CKD (Hx of EVARISTO, Hydronephrotic right Kidney), Dementia, Hypertension who presented from [place] with syncope and AMS as inpatient and found to have hyponatremia with serum Na of 109 and EVARISTO. #Acute Symptomatic Hypovolemic Hyponatremia Serum Osm recorded as 298, 2 hours after first BMP drawn will check repeat BMP and OSM now started on 3% saline for symptomatic hyponatremia, will monitor Na closely expect very rapid improvement given pt is hypovolemic so will give DDAVP 1mcg IV x 1 to prevent too rapid of a correction monitor MS will need isotonic saline once MS is improved or Na improves by more then 8 #Acute Renal Failure suspect from hypovolemia Urine Na is low indicating preserved tubular function #AMS/Syncope likely due to electrolyte derangements and volume loss #Leukocytosis/Sepsis f/u cultures Abx as per ID
[2017-11-15 17:44] LABS: ANION GAP 21 (8-16); CALCIUM 7.1 mg/dL (8.5-10.1); CHLORIDE 81 mmol/L (98-107); CO2 15 mmol/L (21-32); CREATININE 2.8 mg/dL (0.55-1.02); GLUCOSE,RANDOM 151 mg/dL (74-106); POTASSIUM 3.1 mmol/L (3.5-5.1)
[2017-11-15 17:47] LABS: SODIUM 117 mmol/L (136-145)
[2017-11-15] MEDS ORDERED: DEXTROSE 5%-WATER - 250 ML IV ONE ×2 (17:52→17:53)
[2017-11-15] MEDS ORDERED: POTASSIUM CHLORIDE TABS 20 MEQ TABLET.ER (FP) PO ONE (17:56)
[2017-11-15 18:18] VITALS: BMI 14.6
[2017-11-15] MEDS ORDERED: oxyCODONE HCL 5 MG TABLET PO ONE ×2 (18:20→21:34)
[2017-11-15 18:26] LABS: BLOOD UREA NITROGEN 158 mg/dL (7-18)
[2017-11-15] MEDS: PIPERACILLIN/TAZOB 2.25 GM 2.25 GM/50 ML BAG IVPB SCH (20:31)
[2017-11-15 21:17] LABS: ANION GAP 19 (8-16); CALCIUM 7.1 mg/dL (8.5-10.1); CHLORIDE 80 mmol/L (98-107); CO2 18 mmol/L (21-32); CREATININE 2.6 mg/dL (0.55-1.02); GLUCOSE,RANDOM 166 mg/dL (74-106)
[2017-11-15 21:49] LABS: BLOOD UREA NITROGEN 164 mg/dL (7-18)
[2017-11-15 21:50] LABS: POTASSIUM 2.8 mmol/L (3.5-5.1); SODIUM 117 mmol/L (136-145)
[2017-11-15] MEDS: HEPARIN NA (PORCINE) 5,000 UNITS/ML 1ML VIAL SQ SCH (21:50)
[2017-11-15] MEDS: CHLORHEXIDINE GLUCONATE 4% CLEANSER FOR DECOLONIZATION TP SCH (21:50)
[2017-11-15] MEDS: MUPIROCIN 2% TOPICAL OINTMENT FOR DECOLONIZATION NS SCH (21:50)
[2017-11-15] MEDS ORDERED: HEPARIN NA (PORCINE) 5,000 UNITS/ML 1ML VIAL SQ SCH (22:00)
[2017-11-15] MEDS ORDERED: DEXTROSE 5%-WATER - 1,000 ML IV ONE (22:15)
[2017-11-15] MEDS ORDERED: POTASSIUM CHLORIDE ORAL LIQUID 20 MEQ/15 ML PO ONE (22:15)
[2017-11-15 22:16] LABS: CHOLESTEROL 232 mg/dL (50-200); HDL CHOLESTEROL 38 mg/dL (40-60); LDL CHOLESTEROL (ONLY SJRH) 170 mg/dL (5-100); TRIGLYCERIDES 155 mg/dL (35-160)
--- NOTE | 2017-11-15 23:07 | CONSULT ---
Consult Consult Specialty:: PULM / CCM Referred by:: Dr. Ben Mahcado Reason for Consultation:: Metabolic Disarray - History of Present Illness Chief Complaint: AMS History of Present Illness: Ms. Ríos is a 76 y/o woman w/ AMILCAR, anemia, CAD, GERD, hypokalemia, & c-diff , who [facility]/p sync[facility] in the setting of copious diarrhea. HPI is limited due to patients dementia. In the ED pt remark for hyponatremia w/ a serum Na+ of 109 and EVARISTO. Pt admitted to the ICU for metabolic disarray. 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 Cardio/Vascular: Yes: CAD Gastrointestinal: Yes: GERD Renal/: Yes: UTI, Other (Chronic Right hydronephrosis) Heme/Onc: Yes: Anemia Endocrine: Yes: Hypothyroidism - Alcohol/Substance Use Hx Alcohol Use: No - Smoking History Smoking history: Unknown if ever smoked Have you smoked in the past 12 months: No - Social History Usual Living Arrangement: Detention Home Medications - Allergies Allergies/Adverse Reactions: Allergies Allergy/AdvReac Type Severity Reaction Status Date / Time No Known Allergies Allergy Verified 11/15/17 10:15 - Home Medications Home Medications: Ambulatory Orders Aa/Hydrolyzed Collagen, Whey [Lps Neutral Flavor Liquid] 30 ml PO BID 11/15/17 Acetaminophen [Tylenol] 650 mg PO Q6H PRN 11/15/17 Ascorbic Acid [Vitamin C -] 500 mg PO TID 11/15/17 Aspirin [Aspirin EC] 81 mg PO DAILY 11/15/17 Bacitracin - [Bacitracin Topical Ointment -] 1 applic TP DAILY 11/15/17 Docusate Sodium [Colace -] 300 mg PO HS 11/15/17 Ferrous Sulfate [Feosol] 325 mg PO TID 11/15/17 Heparin - 5,000 unit SQ BID 11/15/17 Lactobacillus Acidophilus [Acidophilus] 1 each PO BID 11/15/17 Levothyroxine Sodium [Levoxyl] 150 mcg PO DAILY 11/15/17 Omeprazole Magnesium [Prilosec Otc] 20 mg PO DAILY 11/15/17 Oseltamivir Phosphate [Tamiflu] 75 mg PO DAILY 11/15/17 Potassium Chloride [K-Dur -] 40 meq PO DAILY 11/15/17 Quetiapine Fumarate [Seroquel -] 50 mg PO BID 11/15/17 Sennosides [Senna] 2 tab PO DAILY 11/15/17 Trazodone HCl 25 mg PO HS 11/15/17 Family Disease History - Family Disease History Family History: Unable to Obtain (AMILCAR) Review of Systems Unable to obtain ROS, reason: AMILCAR Physical Exam Vital Signs: Vital Signs Temperature 97.0 F L 11/15/17 18:00 Pulse Rate 88 11/15/17 20:00 Respiratory Rate 16 11/15/17 21:00 Blood Pressure 105/57 11/15/17 20:00 O2 Sat by Pulse Oximetry (%) 97 11/15/17 16:42 Constitutional: Yes: Well Nourished, No Distress, Cachectic Eyes: Yes: WNL, Conjunctiva Clear, EOM Intact HENT: Yes: WNL, Atraumatic Neck: Yes: WNL, Supple, Trachea Midline Cardiovascular: Yes: WNL, Regular Rate and Rhythm Respiratory: Yes: WNL, Regular, CTA Bilaterally Gastrointestinal: Yes: WNL, Soft, Hyperactive Bowel Sounds ...Rectal Exam: Yes: Deferred Renal/: Yes: WNL Breast(s): Yes: WNL Musculoskeletal: Yes: WNL Extremities: Yes: WNL Edema: No Integumentary: Yes: Other (DRY) Neurological: Yes: Weakness ...Motor Strength: WNL Psychiatric: Yes: WNL Labs: CBC, BMP 11/15/17 10:20 11/15/17 20:20 Imaging - Results Chest X-ray: Image Reviewed (10/15: 1. Interval placement of right internal jugular approach central venous catheter with the tip in appropriate position, terminating over the cavoatrial junction. 2. No definable pneumothorax. No evidence of airspace consolidation or pleural effusion. 3. Ill-defined nodular opacities projecting over the right midlung and left upper lobe as above. Please correlate with nonemergent, noncontrast chest CT. 4. Comminuted fracture of the right humeral head and neck, as seen on 09/04/2017 right shoulder x- ray.) Problem List - Problems (1) Diarrhea Code(s): R19.7 - DIARRHEA, UNSPECIFIED (2) Hyponatremia Code(s): E87.1 - HYPO-OSMOLALITY AND HYPONATREMIA (3) Dementia Code(s): F03.90 - UNSPECIFIED DEMENTIA WITHOUT BEHAVIORAL DISTURBANCE (4) Acute kidney failure Code(s): N17.9 - ACUTE KIDNEY FAILURE, UNSPECIFIED Assessment/Plan ASSESS: This is a 76 y/o woman w/ AMILCAR, HTN, anemia, CAD, GERD, CKD, & c-diff, who presented from [place] with syncope and AMS as inpatient and found to have hyponatremia w/ a serum Na of 109 and EVARISTO. -Supp FiO2 prn -Nebs -CPT -Valdes Clxr -Abx -Determine cause of Diarrhea --> send C-Diff -NS -Do NOT correct Na+ faster than 0.5mEq/Hr -Nothypertonic Saline -Consider DDAVP -Strict I's & O's -Trend BUN/Cr -Replete e-lytes prn -RENAL DGL, ACNP-BC [facility] ICU [id number] PULM/CCM Critical Care Time/MDM Note Total Critical Care Time: 40 Critical Care Statement: The care of this patient involved high complexity decision making to prevent further life threatening deterioration of the patient 's condition and/or to evaluate & treat vital organ system(s) failure or risk of failure.
[2017-11-15 23:55] LABS: OSMOLALITY,SERUM 304 mosm/kg (278-305)
[2017-11-16] MEDS: PIPERACILLIN/TAZOB 2.25 GM 2.25 GM/50 ML BAG IVPB SCH ×3 (01:48→18:37)
[2017-11-16 02:43] LABS: ANION GAP 21 (8-16); CALCIUM 7.8 mg/dL (8.5-10.1); CHLORIDE 79 mmol/L (98-107); CO2 19 mmol/L (21-32); CREATININE 2.4 mg/dL (0.55-1.02); GLUCOSE,RANDOM 131 mg/dL (74-106)
[2017-11-16 02:49] LABS: BLOOD UREA NITROGEN 142 mg/dL (7-18)
[2017-11-16 02:50] LABS: POTASSIUM 2.9 mmol/L (3.5-5.1); SODIUM 119 mmol/L (136-145)
[2017-11-16] MEDS ORDERED: MAGNESIUM SULFATE IN WATER 2 GM/50 ML IVPB IVPB ONE (05:45)
[2017-11-16] MEDS: POTASSIUM CHLORIDE 20 MEQ PREMIX IVPB 100 ML IVPB SCH ×3 (05:53→07:45)
[2017-11-16] MEDS: HEPARIN NA (PORCINE) 5,000 UNITS/ML 1ML VIAL SQ SCH ×3 (05:53→21:37)
[2017-11-16 06:18] LABS: BASO % 0.3 % (0-2.0); EOS % 0.1 % (0-4.5); HEMATOCRIT 33.2 % (32.4-45.2); HEMOGLOBIN 11.5 GM/dL (10.7-15.3); LYMPH % 10.3 % (8-40); MCH 26.3 pg (25.7-33.7); MCHC 34.4 g/dl (32.0-36.0); MEAN CELL VOLUME 76.4 fl (80-96); MEAN PLT VOLUME 9.2 fl (7.5-11.1); MONO % 7.3 % (3.8-10.2); PLATELET COUNT 462 K/MM3 (134-434); RBC 4.35 M/mm3 (3.60-5.2); RDW 16.2 % (11.6-15.6)
[2017-11-16 07:23] LABS: CHLORIDE 81 mmol/L (98-107); POTASSIUM 3.6 mmol/L (3.5-5.1)
[2017-11-16 07:30] LABS: ANION GAP 18 (8-16); CALCIUM 7.7 mg/dL (8.5-10.1); CO2 20 mmol/L (21-32); CREATININE 2.2 mg/dL (0.55-1.02); GLUCOSE,RANDOM 115 mg/dL (74-106); MAGNESIUM 3.6 mg/dL (1.8-2.4); PHOSPHOROUS 8.2 mg/dL (2.5-4.9)
[2017-11-16 07:42] LABS: BLOOD UREA NITROGEN 141 mg/dL (7-18); SODIUM 119 mmol/L (136-145)
[2017-11-16] MEDS ORDERED: DESMOPRESSIN ACETATE 4 MCG/ML AMP IVPB ONE (09:01)
--- NOTE | 2017-11-16 09:25 | PN ---
Progress Note (short form) - Note Progress Note: Renal follow up for Severe Hyponatremia and renal failure Pt seen and examined in the ICU awake and alert today no seizures overnight serum na corrected to 119 having diarrhea overnight denies any pain, sob, N/V no fever or chills Vital Signs Temperature 98.2 F 11/16/17 02:00 Pulse Rate 78 11/16/17 08:00 Respiratory Rate 11 L 11/16/17 08:00 Blood Pressure 98/64 11/16/17 08:00 O2 Sat by Pulse Oximetry (%) 97 11/15/17 16:42 Intake & Output 11/13/17 11/14/17 11/15/17 11/16/17 23:59 23:59 23:59 23:59 Intake Total 800 400 Output Total 700 Balance 100 400 Weight 38.697 kg 40.098 kg NAD awake and alert Dry MM RRR CTA soft NT/ND No LE edema CBC, BMP 11/16/17 05:50 11/16/17 05:50 Current Medications Acetaminophen (Tylenol Suppository -) 650 mg [place] Q6H PRN PRN Reason: FEVER Chlorhexidine Gluconate (Hibiclens For Decolonization -) 1 applic TP HS [facility] Last Admin: 11/15/17 21:50 Dose: 1 applic Desmopressin Acetate (Ddavp Injection -) 2 mcg IVPB ONCE ONE Stop: 11/16/17 09:02 Heparin Sodium (Porcine) (Heparin -) 5,000 unit SQ TID [facility] Last Admin: 11/16/17 05:53 Dose: 5,000 unit Piperacillin/Tazobactam/Dextrose (Zosyn 2.25gm Ivpb (Premix)) 2.25 gm in 50 mls @ 100 mls/hr IVPB Q8H-IV [facility] PRN Reason: Protocol Last Admin: 11/16/17 01:48 Dose: 100 mls/hr Dextrose (D5w -) 1,000 mls @ 125 mls/hr IV .Q8H [facility] Stop: 11/16/17 11:14 Mupirocin (Bactroban Ointment (For Decolonization) -) 1 applic NS BID [facility] Stop: 11/20/17 21:59 Last Admin: 11/15/17 21:50 Dose: 1 applic 76 year old woman with PMhx of CKD (Hx of EVARISTO, Hydronephrotic right Kidney), Dementia, Hypertension who presented from [place] with syncope and AMS as inpatient and found to have hyponatremia with serum Na of 109 and EVARISTO. #Acute Symptomatic Hypovolemic Hyponatremia Serum Na corrected to 199 in less then 24 hours will give DDAVP 2mcg IV and D5W 250cc over 2 hours to bring Na back down to ~ 117 by noon pt with high BUN/Cr ration and clinically still very hypovolemic pt is no longer symptomatic as mental status has improved will need normal saline but with caution as pt can rapidly correct Na ICU monitoring for now frequent monitoring of Na levels aim is to correct Na 8-10 in 24 hours and by 16 in 48 hours #Acute on Chronic Renal insufficiency BUN rising, likely due ot diarrhea and continued volume loss Cr improved, CO2 improved no overt signs of uremia at this time plan for volume infusion with NS once Na overcorrection controlled Thank you Ganesh Arteaga DO
[2017-11-16] MEDS ORDERED: PT OWN MED DRAWER 7, Y5N ONE (09:48)
[2017-11-16] MEDS: DEXTROSE 5%-WATER - 1,000 ML IV SCH ×2 (09:49→18:36)
[2017-11-16] MEDS: MUPIROCIN 2% TOPICAL OINTMENT FOR DECOLONIZATION NS SCH ×2 (09:50→21:37)
[2017-11-16] MEDS ORDERED: ACETAMINOPHEN 1000 MG/100 ML VIAL (NON FORMULARY) IVPB PRN (10:32)
--- NOTE | 2017-11-16 10:38 | PN ---
Progress Note (short form) - Note Progress Note: PULMONARY/CCM Pt seen and examined in the ICU. Mental status improving. AM sodium now 119. Denies headache, nausea or vomiting. No shortness of breath or chest pain. Last Vital Signs Temp Pulse Resp BP Pulse Ox 98.2 F 78 11 L 98/64 97 11/16/17 02:00 11/16/17 08:00 11/16/17 08:00 11/16/17 08:00 11/15/17 16:42 Intake & Output 11/13/17 11/14/17 11/15/17 11/16/17 23:59 23:59 23:59 23:59 Intake Total 800 400 Output Total 700 Balance 100 400 Weight 38.697 kg 40.098 kg Gen: awake, alert HEENT: dry mucous membranes Heart: RRR Lung: decreased breath sounds at the bases Abd: soft, nontender Ext: no edema CBC, BMP 11/16/17 05:50 11/16/17 05:50 Active Medications Acetaminophen (Ofirmev Injection -) 600 mg IVPB Q6H PRN PRN Reason: PAIN LEVEL 1-5 Chlorhexidine Gluconate (Hibiclens For Decolonization -) 1 applic TP HS [facility] Last Admin: 11/15/17 21:50 Dose: 1 applic Heparin Sodium (Porcine) (Heparin -) 5,000 unit SQ TID [facility] Last Admin: 11/16/17 05:53 Dose: 5,000 unit Piperacillin/Tazobactam/Dextrose (Zosyn 2.25gm Ivpb (Premix)) 2.25 gm in 50 mls @ 100 mls/hr IVPB Q8H-IV [facility] PRN Reason: Protocol Last Admin: 11/16/17 10:18 Dose: 100 mls/hr Dextrose (D5w -) 1,000 mls @ 125 mls/hr IV Q8H [facility] Last Admin: 11/16/17 09:49 Dose: 125 mls/hr Mupirocin (Bactroban Ointment (For Decolonization) -) 1 applic NS BID [facility] Stop: 11/20/17 21:59 Last Admin: 11/16/17 09:50 Dose: 1 applic A/P Symptomatic Severe Hyponatremia Acute Kidney Injury + C diff r/o UTI CAD HTN Dementia - fluid restriction - IVF, ddAVP per renal - monitor lytes closely - continue antibiotics - f/u cultures - PO as tolerated - DVT prophylaxis - continue ICU monitoring critical care time spent in reviewing chart, evaluating patient and formulating plan 35min
--- NOTE | 2017-11-16 14:56 | PN ---
Progress Note, Physician Chief Complaint: More alert, no c/o head ache, nausea or focal weakness History of Present Illness: 76 year old female with history of Dementia, frequent falls, hypothyroidism, Anemia and Left hip fracture(refused surgery) brought in from [facility] s/p fall/syncope and diarrhea. lab show sever Hyponatremia, Hypokalemia, dehydration and - Current Medication List Current Medications: Active Medications Acetaminophen (Ofirmev Injection -) 600 mg IVPB Q6H PRN PRN Reason: PAIN LEVEL 1-5 Chlorhexidine Gluconate (Hibiclens For Decolonization -) 1 applic TP HS [facility] Last Admin: 11/15/17 21:50 Dose: 1 applic Heparin Sodium (Porcine) (Heparin -) 5,000 unit SQ TID [facility] Last Admin: 11/16/17 14:17 Dose: 5,000 unit Piperacillin/Tazobactam/Dextrose (Zosyn 2.25gm Ivpb (Premix)) 2.25 gm in 50 mls @ 100 mls/hr IVPB Q8H-IV [facility] PRN Reason: Protocol Last Admin: 11/16/17 10:18 Dose: 100 mls/hr Dextrose (D5w -) 1,000 mls @ 125 mls/hr IV Q8H [facility] Last Admin: 11/16/17 09:49 Dose: 125 mls/hr Mupirocin (Bactroban Ointment (For Decolonization) -) 1 applic NS BID [facility] Stop: 11/20/17 21:59 Last Admin: 11/16/17 09:50 Dose: 1 applic - Objective Vital Signs: Vital Signs Temperature 97.7 F 11/16/17 14:05 Pulse Rate 80 11/16/17 14:00 Respiratory Rate 18 11/16/17 14:00 Blood Pressure 100/61 11/16/17 14:00 O2 Sat by Pulse Oximetry (%) 97 11/15/17 16:42 Elderly frail F no in distress c/o Left Hip pain HEENT: Mm dry, no anemia, no thrush NECK: No JVD No Bruit CHEST: CTA B/L CVS; s1S2 R ABD: no distention Bs + EXT; No edema, feet Left Hip tenderness Pulses =2 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 Labs: CBC, BMP 11/16/17 05:50 INR, PTT INR 1.00 (0.82-1.09) 11/15/17 10:20 Problem List - Problems (1) Acute metabolic encephalopathy Assessment/Plan: Due to dehydartion and severe Hyponatremia, gradually improving. Code(s): G93.41 - METABOLIC ENCEPHALOPATHY (2) Acute hyponatremia Assessment/Plan: Severe Hyponatremia with Dehydration , on IV NS Na gradually rising , close monitoring of mental status. Code(s): E87.1 - HYPO-OSMOLALITY AND HYPONATREMIA (3) Acute hypokalemia Assessment/Plan: Repletetd F/U K and Mag level. Code(s): E87.6 - HYPOKALEMIA (4) Hypothyroidism Assessment/Plan: F/U TSH on Levothyroxine Code(s): E03.9 - HYPOTHYROIDISM, UNSPECIFIED (5) Fracture of left hip Assessment/Plan: Opted for non operative treatment, pain control, no Wt bearing. Code(s): S72.002A - FRACTURE OF UNSP PART OF NECK OF LEFT FEMUR, INIT Qualifiers: Encounter type: subsequent encounter Fracture type: closed (6) Anemia Assessment/Plan: Chronic h/h stable Code(s): D64.9 - ANEMIA, UNSPECIFIED Qualifiers: Anemia type: unspecified type Qualified Code(s): D64.9 - Anemia, unspecified (7) Diarrhea Assessment/Plan: F/U stool W/U including C Diff Code(s): R19.7 - DIARRHEA, UNSPECIFIED
[2017-11-16 15:26] LABS: ANION GAP 12 (8-16); CALCIUM 7.4 mg/dL (8.5-10.1); CHLORIDE 86 mmol/L (98-107); CO2 20 mmol/L (21-32); CREATININE 1.7 mg/dL (0.55-1.02); GLUCOSE,RANDOM 136 mg/dL (74-106); POTASSIUM 3.8 mmol/L (3.5-5.1)
--- NOTE | 2017-11-16 15:28 | PN ---
Progress Note, Physician History of Present Illness: continues to improve starting to feel better patient awake - Current Medication List Current Medications: Active Medications Acetaminophen (Ofirmev Injection -) 600 mg IVPB Q6H PRN PRN Reason: PAIN LEVEL 1-5 Chlorhexidine Gluconate (Hibiclens For Decolonization -) 1 applic TP HS [facility] Last Admin: 11/15/17 21:50 Dose: 1 applic Heparin Sodium (Porcine) (Heparin -) 5,000 unit SQ TID [facility] Last Admin: 11/16/17 14:17 Dose: 5,000 unit Piperacillin/Tazobactam/Dextrose (Zosyn 2.25gm Ivpb (Premix)) 2.25 gm in 50 mls @ 100 mls/hr IVPB Q8H-IV [facility] PRN Reason: Protocol Last Admin: 11/16/17 10:18 Dose: 100 mls/hr Dextrose (D5w -) 1,000 mls @ 125 mls/hr IV Q8H [facility] Last Admin: 11/16/17 09:49 Dose: 125 mls/hr Mupirocin (Bactroban Ointment (For Decolonization) -) 1 applic NS BID [facility] Stop: 11/20/17 21:59 Last Admin: 11/16/17 09:50 Dose: 1 applic - Objective Vital Signs: Vital Signs Temperature 97.7 F 11/16/17 14:05 Pulse Rate 80 11/16/17 14:00 Respiratory Rate 18 11/16/17 14:00 Blood Pressure 100/61 11/16/17 14:00 O2 Sat by Pulse Oximetry (%) 97 11/15/17 16:42 Constitutional: Yes: No Distress, Calm, Thin Cardiovascular: Yes: Regular Rate and Rhythm Respiratory: Yes: Regular, CTA Bilaterally, On Nasal O2 Gastrointestinal: Yes: Normal Bowel Sounds, Soft Musculoskeletal: Yes: WNL Extremities: Yes: WNL Neurological: Yes: Alert, Other Psychiatric: Yes: Alert Labs: CBC, BMP 11/16/17 05:50 INR, PTT INR 1.00 (0.82-1.09) 11/15/17 10:20 Assessment/Plan Problem List - Problems (1) Acute hyponatremia Code(s): E87.1 - HYPO-OSMOLALITY AND HYPONATREMIA (2) Acute metabolic encephalopathy Code(s): G93.41 - METABOLIC ENCEPHALOPATHY (3) Acute hypokalemia Code(s): E87.6 - HYPOKALEMIA (4) Acute kidney failurey Code(s): N17.9 - ACUTE KIDNEY FAILURE, UNSPECIFIED (5) Diarrhea Code(s): R19.7 - DIARRHEA, UNSPECIFIED (6) Hypotension Code(s): I95.9 - HYPOTENSION, UNSPECIFIED (7) Fall Code(s): W19.XXXA - UNSPECIFIED FALL, INITIAL ENCOUNTER (8) Hypothyroidism Code(s): E03.9 - HYPOTHYROIDISM, UNSPECIFIED (9) Anemia Code(s): D64.9 - ANEMIA, UNSPECIFIED Qualifiers: Anemia type: unspecified type Qualified Code(s): D64.9 - Anemia, unspecified (10) Fracture of left hip Code(s): S72.002A - FRACTURE OF UNSP PART OF NECK OF LEFT FEMUR, INIT Qualifiers: Encounter type: subsequent encounter Fracture type: closed 11 sepsis mental status improving patient stable cx results noted plan continue abx continue monitoring as per icu sodium correction rest as per primary team cc time 45 min
[2017-11-16 15:31] LABS: BLOOD UREA NITROGEN 125 mg/dL (7-18); SODIUM 118 mmol/L (136-145)
[2017-11-16] MEDS ORDERED: SODIUM CHLORIDE 1,000 ML IV SCH (17:15)
--- NOTE | 2017-11-16 17:16 | EKG ---
Test Reason : Blood Pressure : / mmHG Vent. Rate : 087 BPM Atrial Rate : 087 BPM P-R Int : 136 ms QRS Dur : 094 ms QT Int : 396 ms P-R-T Axes : 059 053 074 degrees QTc Int : 476 ms NORMAL SINUS RHYTHM POSSIBLE LEFT ATRIAL ENLARGEMENT JUNCTIONAL ST DEPRESSION, PROBABLY NORMAL BORDERLINE ECG WHEN COMPARED WITH ECG OF 25-SEP-2017 02:15, NO SIGNIFICANT CHANGE WAS FOUND Confirmed by CAROLINE VICTOR MD ([id number]) on 11/16/2017 5:16:38 PM Referred By: Confirmed By:CAROLINE VICTOR MD
[2017-11-16 21:15] LABS: ANION GAP 11 (8-16); CALCIUM 7.1 mg/dL (8.5-10.1); CHLORIDE 88 mmol/L (98-107); CO2 22 mmol/L (21-32); CREATININE 1.7 mg/dL (0.55-1.02); GLUCOSE,RANDOM 159 mg/dL (74-106); POTASSIUM 3.3 mmol/L (3.5-5.1)
[2017-11-16 21:19] LABS: BLOOD UREA NITROGEN 113 mg/dL (7-18); SODIUM 121 mmol/L (136-145)
[2017-11-16] MEDS: CHLORHEXIDINE GLUCONATE 4% CLEANSER FOR DECOLONIZATION TP SCH (21:37)
[2017-11-17] MEDS: DEXTROSE 5%-WATER - 1,000 ML IV SCH (02:29)
[2017-11-17] MEDS: PIPERACILLIN/TAZOB 2.25 GM 2.25 GM/50 ML BAG IVPB SCH ×3 (02:29→17:21)
[2017-11-17] MEDS: HEPARIN NA (PORCINE) 5,000 UNITS/ML 1ML VIAL SQ SCH ×3 (05:31→21:46)
[2017-11-17 06:22] LABS: BASO % 0.6 % (0-2.0); EOS % 0.8 % (0-4.5); HEMOGLOBIN 11.2 GM/dL (10.7-15.3); LYMPH % 16.2 % (8-40); MCH 26.9 pg (25.7-33.7); MEAN CELL VOLUME 76.9 fl (80-96); MEAN PLT VOLUME 9.1 fl (7.5-11.1); MONO % 7.5 % (3.8-10.2); NEUT % 74.9 % (42.8-82.8); PLATELET COUNT 388 K/MM3 (134-434); RBC 4.17 M/mm3 (3.60-5.2); RDW 16.4 % (11.6-15.6); WHITE BLOOD COUNT 8.2 K/mm3 (4.0-10.0)
[2017-11-17 07:14] LABS: ALBUMIN 3.1 g/dl (3.4-5.0); ALK PHOS 135 U/L (45-117); ANION GAP 11 (8-16); BILIRUBIN,TOTAL 0.4 mg/dL (0.2-1.0); BLOOD UREA NITROGEN 92 mg/dL (7-18); CALCIUM 7.5 mg/dL (8.5-10.1); CHLORIDE 91 mmol/L (98-107); CO2 22 mmol/L (21-32); CREATININE 1.3 mg/dL (0.55-1.02); GLUCOSE,RANDOM 92 mg/dL (74-106); MAGNESIUM 3.6 mg/dL (1.8-2.4); PHOSPHOROUS 4.1 mg/dL (2.5-4.9); SGOT/AST 16 U/L (15-37); SGPT/ALT 16 U/L (12-78); TOT PROT 7.2 g/dl (6.4-8.2)
[2017-11-17 07:25] LABS: POTASSIUM 2.9 mmol/L (3.5-5.1); SODIUM 124 mmol/L (136-145)
[2017-11-17] MEDS ORDERED: POTASSIUM CHLORIDE TABS 20 MEQ TABLET.ER (FP) PO ONE (07:33)
[2017-11-17] MEDS ORDERED: POTASSIUM CHLORIDE 20 MEQ PREMIX IVPB 100 ML IVPB ONE (07:34)
[2017-11-17] MEDS ORDERED: SODIUM CHLORIDE 1,000 ML IV SCH ×3 (07:47→23:19)
--- NOTE | 2017-11-17 07:47 | PN ---
Progress Note (short form) - Note Progress Note: Renal follow up for Severe Hyponatremia and renal failure Pt seen and examined in the ICU awake and alert continues to have a large amount of diarrhea on IVF Mental status much improved not eating much no seizures, confusion, lethargy Vital Signs Temperature 97.3 F L 11/17/17 06:00 Pulse Rate 73 11/17/17 06:00 Respiratory Rate 17 11/17/17 06:00 Blood Pressure 107/77 11/17/17 06:00 O2 Sat by Pulse Oximetry (%) 100 11/17/17 06:00 Intake & Output 11/14/17 11/15/17 11/16/17 11/17/17 23:59 23:59 23:59 23:59 Intake Total 800 1770 560 Output Total 700 1300 500 Balance 100 470 60 Weight 38.697 kg 40.098 kg 39.735 kg NAD awake and alert Dry MM RRR CTA soft NT/ND No LE edema CBC, BMP 11/17/17 06:00 11/17/17 06:00 Current Medications Acetaminophen (Ofirmev Injection -) 600 mg IVPB Q6H PRN PRN Reason: PAIN LEVEL 1-5 Last Admin: 11/16/17 20:47 Dose: 600 mg Chlorhexidine Gluconate (Hibiclens For Decolonization -) 1 applic TP HS [facility] Last Admin: 11/16/17 21:37 Dose: 1 applic Heparin Sodium (Porcine) (Heparin -) 5,000 unit SQ TID [facility] Last Admin: 11/17/17 05:31 Dose: 5,000 unit Piperacillin/Tazobactam/Dextrose (Zosyn 2.25gm Ivpb (Premix)) 2.25 gm in 50 mls @ 100 mls/hr IVPB Q8H-IV [facility] PRN Reason: Protocol Last Admin: 11/17/17 02:29 Dose: 100 mls/hr Sodium Chloride (Normal Saline -) 1,000 mls @ 75 mls/hr IV ASDIR [facility] Mupirocin (Bactroban Ointment (For Decolonization) -) 1 applic NS BID [facility] Stop: 11/20/17 21:59 Last Admin: 11/16/17 21:37 Dose: 1 applic Potassium Chloride (Potassium Chloride 20 Meq Premix Ivpb -) 20 meq IVPB ONCE ONE Stop: 11/17/17 07:35 Potassium Chloride (Potassium Chloride Oral Liquid) 40 meq PO ONCE ONE Stop: 11/17/17 07:48 76 year old woman with PMhx of CKD (Hx of EVARISTO, Hydronephrotic right Kidney), Dementia, Hypertension who presented from [place] with syncope and AMS as inpatient and found to have hyponatremia with serum Na of 109 and EVARISTO. #Acute Symptomatic Hypovolemic Hyponatremia Serum Na is improving at a appropriate rate continue normal saline at 75cc per hour Check serum Na this afternoon no indication for 3% saline #Acute Renal Failure with pereseved tubular function renal function improving with IVF FeNa < 1% no evidence of TMA to suggest HUS in setting of diarrhea continue to trend BUN/Cr no indication for [employer] at the present time #Metabolic acidosis in setting of diarrhea no indication for bicarb at this time Thank you Ganesh Arteaga DO
[2017-11-17] MEDS ORDERED: POTASSIUM CHLORIDE ORAL LIQUID 20 MEQ/15 ML PO ONE (08:30)
[2017-11-17] MEDS: MUPIROCIN 2% TOPICAL OINTMENT FOR DECOLONIZATION NS SCH (09:03)
--- NOTE | 2017-11-17 10:18 | PN ---
Progress Note (short form) - Note Progress Note: PULMONARY/CCM Pt seen and examined in the ICU. Mental status continues to improve. AM sodium now 124. Denies headache, nausea or vomiting. No shortness of breath or chest pain. Last Vital Signs Temp Pulse Resp BP Pulse Ox 97.3 F L 84 11 L 97/68 100 11/17/17 06:00 11/17/17 08:00 11/17/17 08:00 11/17/17 08:00 11/17/17 06:00 Intake & Output 11/14/17 11/15/17 11/16/17 11/17/17 23:59 23:59 23:59 23:59 Intake Total 800 1770 560 Output Total 700 1300 500 Balance 100 470 60 Weight 38.697 kg 40.098 kg 39.735 kg Gen: awake, alert HEENT: dry mucous membranes Heart: RRR Lung: decreased breath sounds at the bases Abd: soft, nontender Ext: no edema CBC, BMP 11/17/17 06:00 11/17/17 06:00 Active Medications Acetaminophen (Ofirmev Injection -) 600 mg IVPB Q6H PRN PRN Reason: PAIN LEVEL 1-5 Last Admin: 11/16/17 20:47 Dose: 600 mg Chlorhexidine Gluconate (Hibiclens For Decolonization -) 1 applic TP HS [facility] Last Admin: 11/16/17 21:37 Dose: 1 applic Heparin Sodium (Porcine) (Heparin -) 5,000 unit SQ TID [facility] Last Admin: 11/17/17 05:31 Dose: 5,000 unit Piperacillin/Tazobactam/Dextrose (Zosyn 2.25gm Ivpb (Premix)) 2.25 gm in 50 mls @ 100 mls/hr IVPB Q8H-IV [facility] PRN Reason: Protocol Last Admin: 11/17/17 09:03 Dose: 100 mls/hr Sodium Chloride (Normal Saline -) 1,000 mls @ 75 mls/hr IV ASDIR [facility] Last Admin: 11/17/17 09:03 Dose: 75 mls/hr Mupirocin (Bactroban Ointment (For Decolonization) -) 1 applic NS BID [facility] Stop: 11/20/17 21:59 Last Admin: 11/17/17 09:03 Dose: 1 applic A/P Symptomatic Severe Hyponatremia improving Acute Kidney Injury + C diff r/o UTI CAD HTN Dementia - fluid restriction - IVF per renal - monitor lytes closely - replete K - continue antibiotics - f/u cultures - d/c central line - PO as tolerated - DVT prophylaxis - can monitor on floor critical care time spent in reviewing chart, evaluating patient and formulating plan 35 min
--- NOTE | 2017-11-17 11:17 | PN ---
Progress Note, Physician History of Present Illness: much more awake and alert conversing feels much better no issues still with low sodium but improving - Current Medication List Current Medications: Active Medications Acetaminophen (Ofirmev Injection -) 600 mg IVPB Q6H PRN PRN Reason: PAIN LEVEL 1-5 Last Admin: 11/16/17 20:47 Dose: 600 mg Chlorhexidine Gluconate (Hibiclens For Decolonization -) 1 applic TP HS [facility] Last Admin: 11/16/17 21:37 Dose: 1 applic Heparin Sodium (Porcine) (Heparin -) 5,000 unit SQ TID [facility] Last Admin: 11/17/17 05:31 Dose: 5,000 unit Piperacillin/Tazobactam/Dextrose (Zosyn 2.25gm Ivpb (Premix)) 2.25 gm in 50 mls @ 100 mls/hr IVPB Q8H-IV [facility] PRN Reason: Protocol Last Admin: 11/17/17 09:03 Dose: 100 mls/hr Sodium Chloride (Normal Saline -) 1,000 mls @ 75 mls/hr IV ASDIR [facility] Last Admin: 11/17/17 09:03 Dose: 75 mls/hr Mupirocin (Bactroban Ointment (For Decolonization) -) 1 applic NS BID [facility] Stop: 11/20/17 21:59 Last Admin: 11/17/17 09:03 Dose: 1 applic - Objective Vital Signs: Vital Signs Temperature 97.2 F L 11/17/17 10:00 Pulse Rate 82 11/17/17 10:00 Respiratory Rate 11 L 11/17/17 10:00 Blood Pressure 128/77 11/17/17 10:00 O2 Sat by Pulse Oximetry (%) 100 11/17/17 06:00 Constitutional: Yes: No Distress, Calm, Thin Cardiovascular: Yes: Regular Rate and Rhythm Respiratory: Yes: Regular, CTA Bilaterally Gastrointestinal: Yes: Normal Bowel Sounds, Soft Musculoskeletal: Yes: WNL Extremities: Yes: WNL Neurological: Yes: Alert, Oriented Psychiatric: Yes: Alert Labs: CBC, BMP 11/17/17 06:00 11/17/17 06:00 INR, PTT INR 1.00 (0.82-1.09) 11/15/17 10:20 Assessment/Plan Problem List - Problems (1) Acute hyponatremia Code(s): E87.1 - HYPO-OSMOLALITY AND HYPONATREMIA (2) Acute metabolic encephalopathy Code(s): G93.41 - METABOLIC ENCEPHALOPATHY (3) Acute hypokalemia Code(s): E87.6 - HYPOKALEMIA (4) Acute kidney failurey Code(s): N17.9 - ACUTE KIDNEY FAILURE, UNSPECIFIED (5) Diarrhea Code(s): R19.7 - DIARRHEA, UNSPECIFIED (6) Hypotension Code(s): I95.9 - HYPOTENSION, UNSPECIFIED (7) Fall Code(s): W19.XXXA - UNSPECIFIED FALL, INITIAL ENCOUNTER (8) Hypothyroidism Code(s): E03.9 - HYPOTHYROIDISM, UNSPECIFIED (9) Anemia Code(s): D64.9 - ANEMIA, UNSPECIFIED Qualifiers: Anemia type: unspecified type Qualified Code(s): D64.9 - Anemia, unspecified (10) Fracture of left hip Code(s): S72.002A - FRACTURE OF UNSP PART OF NECK OF LEFT FEMUR, INIT Qualifiers: Encounter type: subsequent encounter Fracture type: closed 11 sepsis plan continue abx continue monitoring as per icu sodium correction rest as per primary team will start deescalating from tomorrow cc time 45 min
--- NOTE | 2017-11-17 14:03 | PN ---
Progress Note, Physician Chief Complaint: More alert, no c/o head ache, nausea or focal weakness History of Present Illness: 76 year old female with history of Dementia, frequent falls, hypothyroidism, Anemia and Left hip fracture(refused surgery) brought in from [facility] s/p fall/syncope and diarrhea. lab show sever Hyponatremia, Hypokalemia, dehydration and - Current Medication List Current Medications: Active Medications Acetaminophen (Ofirmev Injection -) 600 mg IVPB Q6H PRN PRN Reason: PAIN LEVEL 1-5 Last Admin: 11/16/17 20:47 Dose: 600 mg Chlorhexidine Gluconate (Hibiclens For Decolonization -) 1 applic TP HS MERVIN Last Admin: 11/16/17 21:37 Dose: 1 applic Heparin Sodium (Porcine) (Heparin -) 5,000 unit SQ TID MERVIN Last Admin: 11/17/17 05:31 Dose: 5,000 unit Piperacillin/Tazobactam/Dextrose (Zosyn 2.25gm Ivpb (Premix)) 2.25 gm in 50 mls @ 100 mls/hr IVPB Q8H-IV MERVIN PRN Reason: Protocol Last Admin: 11/17/17 09:03 Dose: 100 mls/hr Sodium Chloride (Normal Saline -) 1,000 mls @ 75 mls/hr IV ASDIR MERVIN Last Admin: 11/17/17 09:03 Dose: 75 mls/hr Mupirocin (Bactroban Ointment (For Decolonization) -) 1 applic NS BID [facility] Stop: 11/20/17 21:59 Last Admin: 11/17/17 09:03 Dose: 1 applic - Objective Vital Signs: Vital Signs Temperature 97.2 F L 11/17/17 10:00 Pulse Rate 77 11/17/17 12:00 Respiratory Rate 13 11/17/17 12:00 Blood Pressure 111/64 11/17/17 12:00 O2 Sat by Pulse Oximetry (%) 100 11/17/17 09:00 Elderly frail F no in distress c/o Left Hip pain HEENT: Mm dry, no anemia, no thrush NECK: No JVD No Bruit CHEST: CTA B/L CVS; s1S2 R ABD: no distention Bs + EXT; No edema, feet Left Hip tenderness Pulses =2 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 Labs: CBC, BMP 11/17/17 06:00 11/17/17 06:00 INR, PTT INR 1.00 (0.82-1.09) 11/15/17 10:20 Problem List - Problems (1) Acute metabolic encephalopathy Assessment/Plan: Due to dehydartion and severe Hyponatremia, gradually improving. Code(s): G93.41 - METABOLIC ENCEPHALOPATHY (2) Acute hyponatremia Assessment/Plan: Severe Hyponatremia with Dehydration , on IV NS Na gradually rising , close monitoring of mental status. Code(s): E87.1 - HYPO-OSMOLALITY AND HYPONATREMIA (3) Acute hypokalemia (4) Hypothyroidism Assessment/Plan: F/U TSH on Levothyroxine Code(s): E03.9 - HYPOTHYROIDISM, UNSPECIFIED (5) Fracture of left hip Assessment/Plan: Opted for non operative treatment, pain control, no Wt bearing. Code(s): S72.002A - FRACTURE OF UNSP PART OF NECK OF LEFT FEMUR, INIT Qualifiers: Encounter type: subsequent encounter Fracture type: closed (6) Anemia Assessment/Plan: Chronic h/h stable Code(s): D64.9 - ANEMIA, UNSPECIFIED Qualifiers: Anemia type: unspecified type Qualified Code(s): D64.9 - Anemia, unspecified (7) Diarrhea Assessment/Plan: F/U stool W/U including C Diff Code(s): R19.7 - DIARRHEA, UNSPECIFIED (8) EVARISTO (acute kidney injury) Assessment/Plan: Improving with IV hydration Code(s): N17.9 - ACUTE KIDNEY FAILURE, UNSPECIFIED
[2017-11-17 14:45] LABS: ANION GAP 12 (8-16); BLOOD UREA NITROGEN 72 mg/dL (7-18); CALCIUM 7.8 mg/dL (8.5-10.1); CHLORIDE 96 mmol/L (98-107); CO2 20 mmol/L (21-32); CREATININE 1.1 mg/dL (0.55-1.02); GLUCOSE,RANDOM 140 mg/dL (74-106); POTASSIUM 3.5 mmol/L (3.5-5.1); SODIUM 128 mmol/L (136-145)
[2017-11-17] MEDS ORDERED: ACETAMINOPHEN 1000 MG/100 ML VIAL (NON FORMULARY) IVPB PRN (18:45)
[2017-11-18] MEDS: PIPERACILLIN/TAZOB 2.25 GM 2.25 GM/50 ML BAG IVPB SCH ×2 (02:10→10:10)
[2017-11-18] MEDS: HEPARIN NA (PORCINE) 5,000 UNITS/ML 1ML VIAL SQ SCH ×3 (06:23→22:32)
[2017-11-18 06:24] LABS: BASO % 0.7 % (0-2.0); EOS % 1.2 % (0-4.5); HEMATOCRIT 32.1 % (32.4-45.2); HEMOGLOBIN 10.8 GM/dL (10.7-15.3); LYMPH % 21.4 % (8-40); MCHC 33.5 g/dl (32.0-36.0); MEAN CELL VOLUME 77.6 fl (80-96); MEAN PLT VOLUME 9.1 fl (7.5-11.1); MONO % 9.8 % (3.8-10.2); NEUT % 66.9 % (42.8-82.8); PLATELET COUNT 343 K/MM3 (134-434); RBC 4.14 M/mm3 (3.60-5.2); RDW 16.5 % (11.6-15.6); WHITE BLOOD COUNT 8.2 K/mm3 (4.0-10.0)
[2017-11-18 06:54] LABS: ANION GAP 14 (8-16); BLOOD UREA NITROGEN 52 mg/dL (7-18); CALCIUM 7.8 mg/dL (8.5-10.1); CHLORIDE 99 mmol/L (98-107); CO2 18 mmol/L (21-32); CREATININE 1.1 mg/dL (0.55-1.02); GLUCOSE,RANDOM 94 mg/dL (74-106); MAGNESIUM 2.9 mg/dL (1.8-2.4); PHOSPHOROUS 3.3 mg/dL (2.5-4.9); POTASSIUM 3.3 mmol/L (3.5-5.1); SODIUM 131 mmol/L (136-145)
[2017-11-18] MEDS ORDERED: PT OWN MED DRAWER 7, Y5N ONE ×3 (10:08→22:26)
--- NOTE | 2017-11-18 11:14 | PN ---
Progress Note (short form) - Note Progress Note: Awake and alert, confused. No CP or SOB. No acute events overnight. Intake & Output 11/15/17 11/16/17 11/17/17 11/18/17 23:59 23:59 23:59 23:59 Intake Total 800 1770 960 700 Output Total 700 1300 1800 200 Balance 100 470 -840 500 Weight 85 lb 5 oz 88 lb 6.4 oz 87 lb 9.6 oz 83 lb 8 oz Last Vital Signs Temp Pulse Resp BP Pulse Ox -97.7 F L 73 18 105/65 100 11/18/17 06:00 11/18/17 06:00 11/18/17 06:00 11/18/17 06:00 11/17/17 21:00 Active Medications Acetaminophen (Ofirmev Injection -) 600 mg IVPB Q6H PRN PRN Reason: PAIN LEVEL 1-5 Last Admin: 11/17/17 22:10 Dose: 600 mg Heparin Sodium (Porcine) (Heparin -) 5,000 unit SQ TID [facility]IN Last Admin: 11/18/17 06:23 Dose: 5,000 unit Piperacillin/Tazobactam/Dextrose (Zosyn 2.25gm Ivpb (Premix)) 2.25 gm in 50 mls @ 100 mls/hr IVPB Q8H-IV MERVIN PRN Reason: Protocol Last Admin: 11/18/17 10:10 Dose: 100 mls/hr Sodium Chloride (Normal Saline -) 1,000 mls @ 50 mls/hr IV ASDIR [facility]IN Last Admin: 11/17/17 23:50 Dose: 50 mls/hr Gen: awake, alert HEENT: dry mucous membranes Heart: RRR Lung: decreased breath sounds at the bases Abd: soft, nontender Ext: no edema Laboratory Results - last 24 hr 11/17/17 11/18/17 11/18/17 13:40 05:25 05:25 WBC 8.2 RBC 4.14 Hgb 10.8 Hct 32.1 L MCV 77.6 L MCH 26.0 MCHC 33.5 RDW 16.5 H Plt Count 343 MPV 9.1 Neutrophils % 66.9 Lymphocytes % 21.4 D Monocytes % 9.8 Eosinophils % 1.2 Basophils % 0.7 Sodium 128 L 131 L Potassium 3.5 3.3 L Chloride 96 L 99 Carbon Dioxide 20 L 18 L Anion Gap 12 14 BUN 72 H 52 H Creatinine 1.1 H 1.1 H Random Glucose 140 H 94 Calcium 7.8 L 7.8 L Phosphorus 3.3 Magnesium 2.9 H A/P Symptomatic Severe Hyponatremia improving Acute Kidney Injury + C diff r/o UTI CAD HTN Dementia - monitor lytes closely - fluid restriction - replete K - continue antibiotics - PO as tolerated - Aspiration precautions - DVT prophylaxis Dr Machuca
--- NOTE | 2017-11-18 11:19 | PN ---
Progress Note (short form) - Note Progress Note: Renal follow up for Severe Hyponatremia and renal failure Pt seen and examined at the bedside awake and alert having diarrhea no confusion, lethargy, weakness no N/V Vital Signs Temperature -97.7 F L 11/18/17 06:00 Pulse Rate 73 11/18/17 06:00 Respiratory Rate 18 11/18/17 06:00 Blood Pressure 105/65 11/18/17 06:00 O2 Sat by Pulse Oximetry (%) 100 11/17/17 21:00 Intake & Output 11/15/17 11/16/17 11/17/17 11/18/17 23:59 23:59 23:59 23:59 Intake Total 800 1770 960 700 Output Total 700 1300 1800 200 Balance 100 470 -840 500 Weight 38.697 kg 40.098 kg 39.735 kg 37.875 kg NAD awake and alert Dry MM RRR CTA soft NT/ND No LE edema CBC, BMP 11/18/17 05:25 11/18/17 05:25 Current Medications Acetaminophen (Ofirmev Injection -) 600 mg IVPB Q6H PRN PRN Reason: PAIN LEVEL 1-5 Last Admin: 11/17/17 22:10 Dose: 600 mg Heparin Sodium (Porcine) (Heparin -) 5,000 unit SQ TID [facility]IN Last Admin: 11/18/17 06:23 Dose: 5,000 unit Piperacillin/Tazobactam/Dextrose (Zosyn 2.25gm Ivpb (Premix)) 2.25 gm in 50 mls @ 100 mls/hr IVPB Q8H-IV MERVIN PRN Reason: Protocol Last Admin: 11/18/17 10:10 Dose: 100 mls/hr Sodium Chloride (Normal Saline -) 1,000 mls @ 83 mls/hr IV ASDIR MERVIN Potassium Chloride (Potassium Chloride Oral Liquid) 40 meq PO BID MERVIN 76 year old woman with PMhx of CKD (Hx of EVARISTO, Hydronephrotic right Kidney), Dementia, Hypertension who presented from [place] with syncope and AMS as inpatient and found to have hyponatremia with serum Na of 109 and EVARISTO. #Acute Symptomatic Hypovolemic Hyponatremia likely due to volume loss of diarrhea Serum Na improving with isotonic saline will increase NS rate to 83cc per hour #Acute Renal Failure with preserved tubular function improving with IVF pt continues to have diarrhea increase fluid rate today #Metabolic acidosis in setting of diarrhea start sodium bicarb 650mg BID #Hypokalemia start kcl 40meq Po BID Thank you Ganesh Arteaga DO
--- NOTE | 2017-11-18 12:25 | PN ---
Progress Note, Physician Chief Complaint: More alert, no c/o head ache, nausea or focal weakness History of Present Illness: 76 year old female with history of Dementia, frequent falls, hypothyroidism, Anemia and Left hip fracture(refused surgery) brought in from [facility] s/p fall/syncope and diarrhea. lab show sever Hyponatremia, Hypokalemia, dehydration with Diarrhea. - Current Medication List Current Medications: Active Medications Acetaminophen (Ofirmev Injection -) 600 mg IVPB Q6H PRN PRN Reason: PAIN LEVEL 1-5 Last Admin: 11/17/17 22:10 Dose: 600 mg Heparin Sodium (Porcine) (Heparin -) 5,000 unit SQ TID MERVIN Last Admin: 11/18/17 06:23 Dose: 5,000 unit Piperacillin/Tazobactam/Dextrose (Zosyn 2.25gm Ivpb (Premix)) 2.25 gm in 50 mls @ 100 mls/hr IVPB Q8H-IV MERVIN PRN Reason: Protocol Last Admin: 11/18/17 10:10 Dose: 100 mls/hr Sodium Chloride (Normal Saline -) 1,000 mls @ 83 mls/hr IV ASDIR MERVIN Potassium Chloride (Potassium Chloride Oral Liquid) 40 meq PO BID MERVIN - Objective Vital Signs: Vital Signs Temperature 97.9 F 11/18/17 08:20 Pulse Rate 77 11/18/17 08:20 Respiratory Rate 18 11/18/17 08:20 Blood Pressure 107/71 11/18/17 08:20 O2 Sat by Pulse Oximetry (%) 100 11/17/17 21:00 Elderly F frail, not in distress, more alert, not in distress. 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 Code(s): G93.41 - METABOLIC ENCEPHALOPATHY (2) Acute hyponatremia Assessment/Plan: Severe Hyponatremia with Dehydration , on IV NS Sr Na 131. Code(s): E87.1 - HYPO-OSMOLALITY AND HYPONATREMIA (3) Acute hypokalemia Assessment/Plan: K 3.3 Repletetd F/U K and Mag level. (4) Hypothyroidism Assessment/Plan: F/U TSH on Levothyroxine Code(s): E03.9 - HYPOTHYROIDISM, UNSPECIFIED (5) Fracture of left hip Assessment/Plan: Opted for non operative treatment, pain control, no Wt bearing. Code(s): S72.002A - FRACTURE OF UNSP PART OF NECK OF LEFT FEMUR, INIT Qualifiers: Encounter type: subsequent encounter Fracture type: closed (6) Anemia Assessment/Plan: Chronic h/h stable Code(s): D64.9 - ANEMIA, UNSPECIFIED Qualifiers: Anemia type: unspecified type Qualified Code(s): D64.9 - Anemia, unspecified (7) Diarrhea Assessment/Plan: F/U stool W/U including C Diff Code(s): R19.7 - DIARRHEA, UNSPECIFIED (8) EVARISTO (acute kidney injury) Assessment/Plan: Improving with IV hydration Code(s): N17.9 - ACUTE KIDNEY FAILURE, UNSPECIFIED
--- NOTE | 2017-11-18 12:31 | PN ---
Progress Note, Physician History of Present Illness: stable no new isues c/o of dirherve banuelosff has been send - Current Medication List Current Medications: Active Medications Acetaminophen (Ofirmev Injection -) 600 mg IVPB Q6H PRN PRN Reason: PAIN LEVEL 1-5 Last Admin: 11/17/17 22:10 Dose: 600 mg Heparin Sodium (Porcine) (Heparin -) 5,000 unit SQ TID MERVIN Last Admin: 11/18/17 06:23 Dose: 5,000 unit Piperacillin/Tazobactam/Dextrose (Zosyn 2.25gm Ivpb (Premix)) 2.25 gm in 50 mls @ 100 mls/hr IVPB Q8H-IV MERVIN PRN Reason: Protocol Last Admin: 11/18/17 10:10 Dose: 100 mls/hr Sodium Chloride (Normal Saline -) 1,000 mls @ 83 mls/hr IV ASDIR MERVIN Potassium Chloride (Potassium Chloride Oral Liquid) 40 meq PO BID MERVIN - Objective Vital Signs: Vital Signs Temperature 97.9 F 11/18/17 08:20 Pulse Rate 77 11/18/17 08:20 Respiratory Rate 18 11/18/17 08:20 Blood Pressure 107/71 11/18/17 08:20 O2 Sat by Pulse Oximetry (%) 100 11/17/17 21:00 Constitutional: Yes: No Distress, Calm Cardiovascular: Yes: S1, S2 Respiratory: Yes: Regular, CTA Bilaterally Gastrointestinal: Yes: Normal Bowel Sounds, Soft Musculoskeletal: Yes: WNL Extremities: Yes: WNL Neurological: Yes: Alert, Oriented Psychiatric: Yes: Alert, Oriented Labs: CBC, BMP 11/18/17 05:25 11/18/17 05:25 INR, PTT INR 1.00 (0.82-1.09) 11/15/17 10:20 Assessment/Plan Problem List - Problems (1) Acute hyponatremia Code(s): E87.1 - HYPO-OSMOLALITY AND HYPONATREMIA (2) Acute metabolic encephalopathy Code(s): G93.41 - METABOLIC ENCEPHALOPATHY (3) Acute hypokalemia Code(s): E87.6 - HYPOKALEMIA (4) Acute kidney failurey Code(s): N17.9 - ACUTE KIDNEY FAILURE, UNSPECIFIED (5) Diarrhea Code(s): R19.7 - DIARRHEA, UNSPECIFIED (6) Hypotension Code(s): I95.9 - HYPOTENSION, UNSPECIFIED (7) Fall Code(s): W19.XXXA - UNSPECIFIED FALL, INITIAL ENCOUNTER (8) Hypothyroidism Code(s): E03.9 - HYPOTHYROIDISM, UNSPECIFIED (9) Anemia Code(s): D64.9 - ANEMIA, UNSPECIFIED Qualifiers: Anemia type: unspecified type Qualified Code(s): D64.9 - Anemia, unspecified (10) Fracture of left hip Code(s): S72.002A - FRACTURE OF UNSP PART OF NECK OF LEFT FEMUR, INIT Qualifiers: Encounter type: subsequent encounter Fracture type: closed 11 sepsis plan will stop abx all cx negative await for cdiff result rest as per primary team
[2017-11-18] MEDS: POTASSIUM CHLORIDE ORAL LIQUID 20 MEQ/15 ML PO SCH ×2 (13:36→22:31)
[2017-11-18] MEDS: SODIUM CHLORIDE 1,000 ML IV SCH (14:32)
[2017-11-18] MEDS: VANCOMYCIN 250 MG/5 ML ORAL SOLUTION PO SCH (17:57)
[2017-11-19] MEDS: VANCOMYCIN 250 MG/5 ML ORAL SOLUTION PO SCH ×4 (01:02→18:12)
[2017-11-19] MEDS ORDERED: PT OWN MED DRAWER 7, Y5N ONE ×2 (06:46→12:18)
[2017-11-19] MEDS: HEPARIN NA (PORCINE) 5,000 UNITS/ML 1ML VIAL SQ SCH ×3 (06:52→21:51)
[2017-11-19] MEDS: SODIUM CHLORIDE 1,000 ML IV SCH (06:54)
[2017-11-19 08:37] LABS: HEMOGLOBIN 10.2 GM/dL (10.7-15.3); LYMPH % 25.8 % (8-40); MCH 25.4 pg (25.7-33.7); MEAN CELL VOLUME 79.4 fl (80-96); MONO % 7.9 % (3.8-10.2); NEUT % 63.3 % (42.8-82.8); PLATELET COUNT 325 K/MM3 (134-434); RBC 4.03 M/mm3 (3.60-5.2); RDW 16.2 % (11.6-15.6); WHITE BLOOD COUNT 8.9 K/mm3 (4.0-10.0)
[2017-11-19 08:55] LABS: ANION GAP 8 (8-16); BLOOD UREA NITROGEN 31 mg/dL (7-18); CHLORIDE 106 mmol/L (98-107); CO2 20 mmol/L (21-32); CREATININE 0.7 mg/dL (0.55-1.02); GLUCOSE,RANDOM 82 mg/dL (74-106); MAGNESIUM 2.2 mg/dL (1.8-2.4); PHOSPHOROUS 2.1 mg/dL (2.5-4.9); POTASSIUM 4.2 mmol/L (3.5-5.1); SODIUM 134 mmol/L (136-145)
[2017-11-19] MEDS: POTASSIUM CHLORIDE ORAL LIQUID 20 MEQ/15 ML PO SCH ×2 (10:27→21:51)
--- NOTE | 2017-11-19 13:19 | PN ---
Progress Note, Physician Chief Complaint: Pt laying in bed, in no acute distress. Pt reports she feels fine. Pt denies any chest pain, sob, n/v, or unilateral weakness. - Current Medication List Current Medications: Active Medications Acetaminophen (Ofirmev Injection -) 600 mg IVPB Q6H PRN PRN Reason: PAIN LEVEL 1-5 Last Admin: 11/17/17 22:10 Dose: 600 mg Heparin Sodium (Porcine) (Heparin -) 5,000 unit SQ TID [facility] Last Admin: 11/19/17 06:52 Dose: 5,000 unit Sodium Chloride (Normal Saline -) 1,000 mls @ 83 mls/hr IV ASDIR [facility] Last Admin: 11/19/17 06:54 Dose: 83 mls/hr Potassium Chloride (Potassium Chloride Oral Liquid) 40 meq PO BID [facility] Last Admin: 11/19/17 10:27 Dose: 40 meq Vancomycin HCl (Vancomycin Oral Solution) 125 mg PO Q6HPO [facility] Last Admin: 11/19/17 12:22 Dose: 125 mg - Objective Vital Signs: Vital Signs Temperature 97.4 F L 11/19/17 06:00 Pulse Rate 76 11/19/17 06:00 Respiratory Rate 18 11/19/17 06:00 Blood Pressure 96/65 11/19/17 06:00 O2 Sat by Pulse Oximetry (%) 99 11/18/17 21:00 Constitutional: Yes: No Distress, Calm Cardiovascular: Yes: WNL, Regular Rate and Rhythm Respiratory: Yes: WNL, Regular, Rales (bibasilar) Gastrointestinal: Yes: WNL, Normal Bowel Sounds, Soft Extremities: Yes: WNL Edema: No Integumentary: Yes: WNL Neurological: Yes: WNL Psychiatric: Yes: WNL Labs: CBC, BMP 11/19/17 06:00 11/19/17 06:00 INR, PTT INR 1.00 (0.82-1.09) 11/15/17 10:20 Problem List - Problems (1) Acute hyponatremia Code(s): E87.1 - HYPO-OSMOLALITY AND HYPONATREMIA (2) Acute metabolic encephalopathy Code(s): G93.41 - METABOLIC ENCEPHALOPATHY (3) Acute hypokalemia Code(s): E87.6 - HYPOKALEMIA (4) Acute kidney failure Code(s): N17.9 - ACUTE KIDNEY FAILURE, UNSPECIFIED (5) Diarrhea Code(s): R19.7 - DIARRHEA, UNSPECIFIED (6) Hypotension Code(s): I95.9 - HYPOTENSION, UNSPECIFIED (7) Fall Code(s): W19.XXXA - UNSPECIFIED FALL, INITIAL ENCOUNTER (8) Hypothyroidism Code(s): E03.9 - HYPOTHYROIDISM, UNSPECIFIED (9) Anemia Code(s): D64.9 - ANEMIA, UNSPECIFIED Qualifiers: Anemia type: unspecified type Qualified Code(s): D64.9 - Anemia, unspecified (10) Fracture of left hip Code(s): S72.002A - FRACTURE OF UNSP PART OF NECK OF LEFT FEMUR, INIT Qualifiers: Encounter type: subsequent encounter Fracture type: closed Assessment/Plan (1) Acute hyponatremia Assessment/Plan: Improving Nephrology managed Continue NS @83mL/hr Code(s): E87.1 - HYPO-OSMOLALITY AND HYPONATREMIA (2) Acute metabolic encephalopathy Assessment/Plan: Resolved Code(s): G93.41 - METABOLIC ENCEPHALOPATHY (3) Acute hypokalemia Assessment/Plan: Resolved, currently on potassium chloride 40meq po BID per Nephrology Code(s): E87.6 - HYPOKALEMIA (4) Acute kidney failure Assessment/Plan: Improved Code(s): N17.9 - ACUTE KIDNEY FAILURE, UNSPECIFIED (5) Diarrhea Assessment/Plan: Cdiff antigen positive, toxin negative On PO Vanco per ID Code(s): R19.7 - DIARRHEA, UNSPECIFIED (6) Hypotension Assessment/Plan: Improving Continue IVF hydration Code(s): I95.9 - HYPOTENSION, UNSPECIFIED (7) Fall Assessment/Plan: s/p fall at SNF, xrays, head CT negative, chronic fracture of left hip( unchanged from previous CT) PT eval pending Code(s): W19.XXXA - UNSPECIFIED FALL, INITIAL ENCOUNTER (8) Hypothyroidism Assessment/Plan: Levothyroxine restarted Code(s): E03.9 - HYPOTHYROIDISM, UNSPECIFIED (9) Anemia Assessment/Plan: hg/hct stable Iron restarted will continue to monitor Code(s): D64.9 - ANEMIA, UNSPECIFIED Qualifiers: Anemia type: unspecified type Qualified Code(s): D64.9 - Anemia, unspecified (10) Fracture of left hip Assessment/Plan: unchanged from previous CT in September Pt had refused surgery Code(s): S72.002A - FRACTURE OF UNSP PART OF NECK OF LEFT FEMUR, INIT Qualifiers: Encounter type: subsequent encounter Fracture type: closed
--- NOTE | 2017-11-19 13:35 | PN ---
Progress Note, Physician History of Present Illness: stable having dirrhoea still - Current Medication List Current Medications: Active Medications Acetaminophen (Ofirmev Injection -) 600 mg IVPB Q6H PRN PRN Reason: PAIN LEVEL 1-5 Last Admin: 11/17/17 22:10 Dose: 600 mg Heparin Sodium (Porcine) (Heparin -) 5,000 unit SQ TID [facility] Last Admin: 11/19/17 06:52 Dose: 5,000 unit Sodium Chloride (Normal Saline -) 1,000 mls @ 83 mls/hr IV ASDIR [facility] Last Admin: 11/19/17 06:54 Dose: 83 mls/hr Potassium Chloride (Potassium Chloride Oral Liquid) 40 meq PO BID [facility] Last Admin: 11/19/17 10:27 Dose: 40 meq Vancomycin HCl (Vancomycin Oral Solution) 125 mg PO Q6HPO [facility] Last Admin: 11/19/17 12:22 Dose: 125 mg - Objective Vital Signs: Vital Signs Temperature 97.4 F L 11/19/17 06:00 Pulse Rate 76 11/19/17 06:00 Respiratory Rate 18 11/19/17 06:00 Blood Pressure 96/65 11/19/17 06:00 O2 Sat by Pulse Oximetry (%) 99 11/18/17 21:00 Constitutional: Yes: Calm, Mild Distress, Thin Cardiovascular: Yes: Regular Rate and Rhythm Respiratory: Yes: Regular, CTA Bilaterally Gastrointestinal: Yes: Normal Bowel Sounds, Soft Musculoskeletal: Yes: WNL Extremities: Yes: WNL Neurological: Yes: Alert, Oriented Psychiatric: Yes: Alert, Oriented Labs: CBC, BMP 11/19/17 06:00 11/19/17 06:00 INR, PTT INR 1.00 (0.82-1.09) 11/15/17 10:20 Assessment/Plan Problem List - Problems (1) Acute hyponatremia Code(s): E87.1 - HYPO-OSMOLALITY AND HYPONATREMIA (2) Acute metabolic encephalopathy Code(s): G93.41 - METABOLIC ENCEPHALOPATHY (3) Acute hypokalemia Code(s): E87.6 - HYPOKALEMIA (4) Acute kidney failurey Code(s): N17.9 - ACUTE KIDNEY FAILURE, UNSPECIFIED (5) Diarrhea Code(s): R19.7 - DIARRHEA, UNSPECIFIED (6) Hypotension Code(s): I95.9 - HYPOTENSION, UNSPECIFIED (7) Fall Code(s): W19.XXXA - UNSPECIFIED FALL, INITIAL ENCOUNTER (8) Hypothyroidism Code(s): E03.9 - HYPOTHYROIDISM, UNSPECIFIED (9) Anemia Code(s): D64.9 - ANEMIA, UNSPECIFIED Qualifiers: Anemia type: unspecified type Qualified Code(s): D64.9 - Anemia, unspecified (10) Fracture of left hip Code(s): S72.002A - FRACTURE OF UNSP PART OF NECK OF LEFT FEMUR, INIT Qualifiers: Encounter type: subsequent encounter Fracture type: closed 11 sepsis plan continue oral vanco continue monitoring replace rest as per primary
[2017-11-19] MEDS: ASCORBIC ACID 500 MG TABLET (FP) PO SCH ×2 (15:08→21:51)
--- NOTE | 2017-11-19 15:31 | PN ---
Progress Note (short form) - Note Progress Note: Renal follow up for Severe Hyponatremia and renal failure Pt seen and examined at the bedside awake and alert continues to have diarrhea no sob, chest pain, N/V/D Vital Signs Temperature 97 F L 11/19/17 10:00 Pulse Rate 78 11/19/17 10:00 Respiratory Rate 18 11/19/17 10:00 Blood Pressure 102/58 11/19/17 10:00 O2 Sat by Pulse Oximetry (%) 99 11/19/17 09:00 Intake & Output 11/16/17 11/17/17 11/18/17 11/19/17 23:59 23:59 23:59 23:59 Intake Total 7318 383 7223 1812 Output Total 1300 1800 525 200 Balance 470 -840 1889 1612 Weight 40.098 kg 39.735 kg 37.875 kg 37.79 kg NAD awake and alert Dry MM RRR CTA soft NT/ND No LE edema CBC, BMP 11/19/17 06:00 11/19/17 06:00 Laboratory Tests 11/19/17 06:00 Phosphorus 2.1 L D Magnesium 2.2 D Current Medications Acetaminophen (Ofirmev Injection -) 600 mg IVPB Q6H PRN PRN Reason: PAIN LEVEL 1-5 Last Admin: 11/17/17 22:10 Dose: 600 mg Ascorbic Acid (Vitamin C -) 500 mg PO TID [facility] Last Admin: 11/19/17 15:08 Dose: 500 mg Aspirin (Ecotrin -) 81 mg PO DAILY [facility] Heparin Sodium (Porcine) (Heparin -) 5,000 unit SQ TID [facility] Last Admin: 11/19/17 15:08 Dose: 5,000 unit Sodium Chloride (Normal Saline -) 1,000 mls @ 83 mls/hr IV ASDIR [facility] Last Admin: 11/19/17 06:54 Dose: 83 mls/hr Levothyroxine Sodium (Synthroid -) 150 mcg PO DAILY@0700 [facility] Non-Formulary Medication (Ferrous Sulfate [Feosol]) 325 mg PO TIDCM [facility] Potassium Chloride (Potassium Chloride Oral Liquid) 40 meq PO BID [facility] Last Admin: 11/19/17 10:27 Dose: 40 meq Vancomycin HCl (Vancomycin Oral Solution) 125 mg PO Q6HPO [facility] Last Admin: 11/19/17 12:22 Dose: 125 mg 76 year old woman with PMhx of CKD (Hx of EVARISTO, Hydronephrotic right Kidney), Dementia, Hypertension who presented from [place] with syncope and AMS as inpatient and found to have hyponatremia with serum Na of 109 and EVARISTO. #Acute Symptomatic Hypovolemic Hyponatremia likely due to volume loss of diarrhea Serum Na now improved to near normal continue isotonic saline as pt continues to ahve diarrhea #Acute Renal Failure with preserved tubular function significantly improved continue isotonic saline for now #Metabolic acidosis in setting of diarrhea continue oral bicarb #Hypokalemia continue kcl 40meq Po BID #Hypophosphatemia start oral neutraphos TID Thank you Ganesh Arteaga DO
[2017-11-19] MEDS ORDERED: PATIENT'S OWN MEDICATION (NON-FORMULARY) (Ferrous Sulfate [Feosol] 325 MG) PO SCH (17:30)
[2017-11-19] MEDS ORDERED: FERROUS SO4 325 MG TABLET (FP) PO SCH (18:06)
[2017-11-19] MEDS: NAPH,MB-DB/K PH,MBDB POWDER PACKET PO SCH ×2 (18:12→21:51)
[2017-11-19] MEDS: FERROUS SO4 325 MG TABLET (FP) PO SCH (18:25)
[2017-11-20] MEDS: VANCOMYCIN 250 MG/5 ML ORAL SOLUTION PO SCH ×5 (00:08→23:20)
[2017-11-20] MEDS: HEPARIN NA (PORCINE) 5,000 UNITS/ML 1ML VIAL SQ SCH ×3 (06:00→21:31)
[2017-11-20] MEDS: ASCORBIC ACID 500 MG TABLET (FP) PO SCH ×3 (06:04→21:30)
[2017-11-20] MEDS: NAPH,MB-DB/K PH,MBDB POWDER PACKET PO SCH ×3 (06:05→21:30)
[2017-11-20] MEDS: LEVOTHYROXINE 100 MCG, LEVOTHYROXINE 50 MCG PO SCH (06:05)
[2017-11-20] MEDS ORDERED: LEVOTHYROXINE NA 150 MCG TABLET PO SCH (07:00)
[2017-11-20 08:23] LABS: BASO % 0.8 % (0-2.0); EOS % 1.9 % (0-4.5); HEMATOCRIT 30.9 % (32.4-45.2); LYMPH % 22.8 % (8-40); MCH 25.7 pg (25.7-33.7); MCHC 32.3 g/dl (32.0-36.0); MEAN CELL VOLUME 79.5 fl (80-96); MEAN PLT VOLUME 8.7 fl (7.5-11.1); NEUT % 68.5 % (42.8-82.8); PLATELET COUNT 330 K/MM3 (134-434); RBC 3.88 M/mm3 (3.60-5.2); RDW 16.1 % (11.6-15.6); WHITE BLOOD COUNT 10.3 K/mm3 (4.0-10.0)
[2017-11-20 08:46] LABS: ANION GAP 9 (8-16); BLOOD UREA NITROGEN 18 mg/dL (7-18); CALCIUM 8.3 mg/dL (8.5-10.1); CHLORIDE 106 mmol/L (98-107); CO2 20 mmol/L (21-32); CREATININE 0.6 mg/dL (0.55-1.02); GLUCOSE,RANDOM 76 mg/dL (74-106); MAGNESIUM 1.9 mg/dL (1.8-2.4); PHOSPHOROUS 2.5 mg/dL (2.5-4.9); POTASSIUM 4.9 mmol/L (3.5-5.1); SODIUM 135 mmol/L (136-145)
[2017-11-20] MEDS: FERROUS SO4 325 MG TABLET (FP) PO SCH ×3 (09:28→17:41)
--- NOTE | 2017-11-20 09:53 | PN ---
Progress Note, Physician Chief Complaint: Pt laying in bed, in no acute distress. Pt reports she feels okay other than the "thigh pain", pt reports 8/10 chronic aching left hip pain. Pt continues to have diarrhea. Pt denies any chest pain, sob, n/v, or unilateral weakness. - Current Medication List Current Medications: Active Medications Acetaminophen (Ofirmev Injection -) 600 mg IVPB Q6H PRN PRN Reason: PAIN LEVEL 1-5 Last Admin: 11/17/17 22:10 Dose: 600 mg Ascorbic Acid (Vitamin C -) 500 mg PO TID [facility] Last Admin: 11/20/17 06:04 Dose: 500 mg Aspirin (Ecotrin -) 81 mg PO DAILY [facility] Ferrous Sulfate (Feosol -) 325 mg PO TIDCM [facility] Last Admin: 11/20/17 09:28 Dose: 325 mg Heparin Sodium (Porcine) (Heparin -) 5,000 unit SQ TID [facility] Last Admin: 11/20/17 06:00 Dose: 5,000 unit Sodium Chloride (Normal Saline -) 1,000 mls @ 83 mls/hr IV ASDIR [facility] Last Admin: 11/19/17 06:54 Dose: 83 mls/hr Levothyroxine Sodium 100 mcg/ (Levothyroxine Sodium 50 mcg) 150 mcg PO DAILY@ 0700 [facility] Last Admin: 11/20/17 06:05 Dose: 150 mcg Potassium Chloride (Potassium Chloride Oral Liquid) 40 meq PO BID [facility] Last Admin: 11/19/17 21:51 Dose: 40 meq Potassium Phos/Sodium Phos (Phos-Nak Packet -) 1 packet PO TID [facility] Last Admin: 11/20/17 06:05 Dose: 1 packet Vancomycin HCl (Vancomycin Oral Solution) 125 mg PO Q6HPO [facility] Last Admin: 11/20/17 06:00 Dose: 125 mg - Objective Vital Signs: Vital Signs Temperature 97.8 F 11/20/17 05:51 Pulse Rate 78 11/20/17 05:51 Respiratory Rate 18 11/20/17 05:51 Blood Pressure 101/62 11/20/17 05:51 O2 Sat by Pulse Oximetry (%) 100 11/19/17 21:00 Constitutional: Yes: No Distress, Calm Cardiovascular: Yes: WNL Respiratory: Yes: WNL, CTA Bilaterally Gastrointestinal: Yes: WNL, Normal Bowel Sounds, Soft Extremities: Yes: WNL Edema: No Neurological: Yes: Alert, Oriented Psychiatric: Yes: WNL, Alert Labs: CBC, BMP 11/20/17 05:40 11/20/17 05:40 INR, PTT INR 1.00 (0.82-1.09) 11/15/17 10:20 Problem List - Problems (1) Acute hyponatremia Code(s): E87.1 - HYPO-OSMOLALITY AND HYPONATREMIA (2) Acute metabolic encephalopathy Code(s): G93.41 - METABOLIC ENCEPHALOPATHY (3) Acute hypokalemia Code(s): E87.6 - HYPOKALEMIA (4) Acute kidney failure Code(s): N17.9 - ACUTE KIDNEY FAILURE, UNSPECIFIED (5) Diarrhea Code(s): R19.7 - DIARRHEA, UNSPECIFIED (6) Hypotension Code(s): I95.9 - HYPOTENSION, UNSPECIFIED (7) Fall Code(s): W19.XXXA - UNSPECIFIED FALL, INITIAL ENCOUNTER (8) Hypothyroidism Code(s): E03.9 - HYPOTHYROIDISM, UNSPECIFIED (9) Anemia Code(s): D64.9 - ANEMIA, UNSPECIFIED Qualifiers: Anemia type: unspecified type Qualified Code(s): D64.9 - Anemia, unspecified (10) Fracture of left hip Code(s): S72.002A - FRACTURE OF UNSP PART OF NECK OF LEFT FEMUR, INIT Qualifiers: Encounter type: subsequent encounter Fracture type: closed (11) Dementia Code(s): F03.90 - UNSPECIFIED DEMENTIA WITHOUT BEHAVIORAL DISTURBANCE (12) Chronic left hip pain Code(s): M25.552 - PAIN IN LEFT HIP; G89.29 - OTHER CHRONIC PAIN Assessment/Plan (1) Acute hyponatremia Assessment/Plan: Improving Nephrology managed Code(s): E87.1 - HYPO-OSMOLALITY AND HYPONATREMIA (2) Acute metabolic encephalopathy Assessment/Plan: Resolved. pt back at baseline Code(s): G93.41 - METABOLIC ENCEPHALOPATHY (3) Acute hypokalemia Assessment/Plan: Resolved, potassium chloride 40meq po changed to daily per Nephrology Continue to monitor labs Code(s): E87.6 - HYPOKALEMIA (4) Acute kidney failure Assessment/Plan: Resolved Code(s): N17.9 - ACUTE KIDNEY FAILURE, UNSPECIFIED (5) Diarrhea Assessment/Plan: Cdiff antigen positive, toxin negative. Pt still having diarrhea >6episodes/day Flexiseal considering pt's risk for skin breakdown and incontinence On PO Vanco per ID Code(s): R19.7 - DIARRHEA, UNSPECIFIED (6) Hypotension Assessment/Plan: Improving Continue IVF hydration Code(s): I95.9 - HYPOTENSION, UNSPECIFIED (7) Fall Assessment/Plan: s/p fall at SNF, xrays, head CT negative, chronic fracture of left hip( unchanged from previous CT) Continue PT as tolerated, pt having significant pain with ambulation May benefit from administering tramadol 30 mins prior to PT session Code(s): W19.XXXA - UNSPECIFIED FALL, INITIAL ENCOUNTER (8) Hypothyroidism Assessment/Plan: Continue Levothyroxine Code(s): E03.9 - HYPOTHYROIDISM, UNSPECIFIED (9) Anemia Assessment/Plan: hg/hct stable Continue Ferrous sulfate will continue to monitor Code(s): D64.9 - ANEMIA, UNSPECIFIED Qualifiers: Anemia type: unspecified type Qualified Code(s): D64.9 - Anemia, unspecified (10) Fracture of left hip Assessment/Plan: unchanged from previous CT in September Pt had refused surgery Continue PT as tolerated Code(s): S72.002A - FRACTURE OF UNSP PART OF NECK OF LEFT FEMUR, INIT Qualifiers: Encounter type: subsequent encounter Fracture type: closed (11) Dementia Assessment/Plan: At baseline. Continue home meds. Monitor for changes (12) Chronic Left Hip Pain Assessment/Plan: Pt reporting mod-severe aching left hip pain, secondary to old closed fracture, no intervention taken at the time Start Tramadol PRN for adequate pain control especially before PT Dispo: SNF when cleared by Nephrology
[2017-11-20] MEDS ORDERED: ACETAMINOPHEN 325 MG TABLET (FP) PO PRN (10:09)
[2017-11-20] MEDS: POTASSIUM CHLORIDE ORAL LIQUID 20 MEQ/15 ML PO SCH (10:19)
[2017-11-20] MEDS: ASPIRIN COATED 81 MG TABLET.EC PO SCH (10:19)
[2017-11-20] MEDS ORDERED: PT OWN MED DRAWER 7, Y5N ONE (12:26)
[2017-11-20] MEDS: SODIUM CHLORIDE 1,000 ML IV SCH ×2 (14:12→17:41)
--- NOTE | 2017-11-20 14:25 | PN ---
Progress Note (short form) - Note Progress Note: Renal follow up for Severe Hyponatremia and renal failure Pt seen and examined at the bedside awake and alert continues to have diarrhea no sob, chest pain on IVF Vital Signs Temperature 97.8 F 11/20/17 10:00 Pulse Rate 78 11/20/17 10:00 Respiratory Rate 18 11/20/17 10:00 Blood Pressure 100/61 11/20/17 10:00 O2 Sat by Pulse Oximetry (%) 100 11/19/17 21:00 Intake & Output 11/17/17 11/18/17 11/19/17 11/20/17 23:59 23:59 23:59 23:59 Intake Total 960 2414 2112 1370 Output Total 1800 525 200 Balance -840 1889 1912 1370 Weight 39.735 kg 37.875 kg 37.79 kg 39.519 kg NAD awake and alert Dry MM RRR CTA soft NT/ND No LE edema CBC, BMP 11/20/17 05:40 11/20/17 05:40 Laboratory Tests 11/20/17 05:40 Calcium 8.3 L Phosphorus 2.5 Magnesium 1.9 Current Medications Acetaminophen (Tylenol -) 650 mg PO Q4H PRN PRN Reason: PAIN OR FEVER Ascorbic Acid (Vitamin C -) 500 mg PO TID [facility] Last Admin: 11/20/17 06:04 Dose: 500 mg Aspirin (Ecotrin -) 81 mg PO DAILY [facility] Last Admin: 11/20/17 10:19 Dose: 81 mg Ferrous Sulfate (Feosol -) 325 mg PO TIDCM [facility] Last Admin: 11/20/17 13:03 Dose: 325 mg Heparin Sodium (Porcine) (Heparin -) 5,000 unit SQ TID [facility] Last Admin: 11/20/17 06:00 Dose: 5,000 unit Sodium Chloride (Normal Saline -) 1,000 mls @ 83 mls/hr IV ASDIR [facility] Last Admin: 11/20/17 14:12 Dose: 83 mls/hr Levothyroxine Sodium 100 mcg/ (Levothyroxine Sodium 50 mcg) 150 mcg PO DAILY@ 0700 [facility] Last Admin: 11/20/17 06:05 Dose: 150 mcg Potassium Chloride (Potassium Chloride Oral Liquid) 40 meq PO DAILY [facility] Potassium Phos/Sodium Phos (Phos-Nak Packet -) 1 packet PO TID [facility] Last Admin: 11/20/17 06:05 Dose: 1 packet Tramadol HCl (Ultram -) 50 mg PO Q8H PRN PRN Reason: PAIN LEVEL 7 - 10 Vancomycin HCl (Vancomycin Oral Solution) 125 mg PO Q6HPO [facility] Last Admin: 11/20/17 13:02 Dose: 125 mg 76 year old woman with PMhx of CKD (Hx of EVARISTO, Hydronephrotic right Kidney), Dementia, Hypertension who [place] with [place] and AMS as inpatient and found to have hyponatremia with serum Na of 109 and EVARISTO. #Acute Symptomatic Hypovolemic Hyponatremia likely due to volume loss of diarrhea Serum Na now improved and stable continue isotonic saline as pt continues to have diarrhea #Acute Renal Failure with preserved tubular function significantly improved continue isotonic saline for now #Metabolic acidosis in setting of diarrhea continue oral bicarb #Hypokalemia will decrease KCL to once daily as K is 4.9 #Hypophosphatemia continue neutraphos TID Thank you Ganesh Arteaga DO
[2017-11-20] MEDS: traMADol HCL 50 MG TABLET PO PRN (14:28)
--- NOTE | 2017-11-20 14:46 | PN ---
Progress Note, Physician History of Present Illness: patient with lot of loose stools no other issues - Current Medication List Current Medications: Active Medications Acetaminophen (Tylenol -) 650 mg PO Q4H PRN PRN Reason: PAIN OR FEVER Ascorbic Acid (Vitamin C -) 500 mg PO TID [facility] Last Admin: 11/20/17 14:28 Dose: 500 mg Aspirin (Ecotrin -) 81 mg PO DAILY [facility] Last Admin: 11/20/17 10:19 Dose: 81 mg Ferrous Sulfate (Feosol -) 325 mg PO TIDCM [facility] Last Admin: 11/20/17 13:03 Dose: 325 mg Heparin Sodium (Porcine) (Heparin -) 5,000 unit SQ TID [facility] Last Admin: 11/20/17 14:28 Dose: 5,000 unit Sodium Chloride (Normal Saline -) 1,000 mls @ 83 mls/hr IV ASDIR [facility] Last Admin: 11/20/17 14:12 Dose: 83 mls/hr Levothyroxine Sodium 100 mcg/ (Levothyroxine Sodium 50 mcg) 150 mcg PO DAILY@ 0700 [facility] Last Admin: 11/20/17 06:05 Dose: 150 mcg Potassium Chloride (Potassium Chloride Oral Liquid) 40 meq PO DAILY [facility] Potassium Phos/Sodium Phos (Phos-Nak Packet -) 1 packet PO TID [facility] Last Admin: 11/20/17 14:28 Dose: 1 packet Tramadol HCl (Ultram -) 50 mg PO Q8H PRN PRN Reason: PAIN LEVEL 7 - 10 Last Admin: 11/20/17 14:28 Dose: 50 mg Vancomycin HCl (Vancomycin Oral Solution) 125 mg PO Q6HPO [facility] Last Admin: 11/20/17 13:02 Dose: 125 mg - Objective Vital Signs: Vital Signs Temperature 97.8 F 11/20/17 10:00 Pulse Rate 78 11/20/17 10:00 Respiratory Rate 18 11/20/17 10:00 Blood Pressure 100/61 11/20/17 10:00 O2 Sat by Pulse Oximetry (%) 100 11/19/17 21:00 Constitutional: Yes: No Distress, Calm Cardiovascular: Yes: S1, S2 Respiratory: Yes: Regular, CTA Bilaterally Gastrointestinal: Yes: Normal Bowel Sounds, Soft, Other (dirrhoea flxiseal in place) Musculoskeletal: Yes: WNL Extremities: Yes: WNL Neurological: Yes: Alert, Oriented Psychiatric: Yes: Alert, Oriented Labs: CBC, BMP 11/20/17 05:40 11/20/17 05:40 INR, PTT INR 1.00 (0.82-1.09) 11/15/17 10:20 Assessment/Plan Problem List - Problems (1) Acute hyponatremia Code(s): E87.1 - HYPO-OSMOLALITY AND HYPONATREMIA (2) Acute metabolic encephalopathy Code(s): G93.41 - METABOLIC ENCEPHALOPATHY (3) Acute hypokalemia Code(s): E87.6 - HYPOKALEMIA (4) Acute kidney failurey Code(s): N17.9 - ACUTE KIDNEY FAILURE, UNSPECIFIED (5) Diarrhea Code(s): R19.7 - DIARRHEA, UNSPECIFIED (6) Hypotension Code(s): I95.9 - HYPOTENSION, UNSPECIFIED (7) Fall Code(s): W19.XXXA - UNSPECIFIED FALL, INITIAL ENCOUNTER (8) Hypothyroidism Code(s): E03.9 - HYPOTHYROIDISM, UNSPECIFIED (9) Anemia Code(s): D64.9 - ANEMIA, UNSPECIFIED Qualifiers: Anemia type: unspecified type Qualified Code(s): D64.9 - Anemia, unspecified (10) Fracture of left hip Code(s): S72.002A - FRACTURE OF UNSP PART OF NECK OF LEFT FEMUR, INIT Qualifiers: Encounter type: subsequent encounter Fracture type: closed 11 sepsis plan continue oral vanco continue monitoring replacement of looses rest as per primary team
[2017-11-20] MEDS ORDERED: LIDOCAINE HCL 2% JELLY (30 ML/TUBE) TP PRN (19:01)
[2017-11-21] MEDS: SODIUM CHLORIDE 1,000 ML IV SCH ×3 (01:21→13:38)
[2017-11-21] MEDS ORDERED: LEVOTHYROXINE NA 100 MCG TABLET (FP) ONE (05:17)
[2017-11-21] MEDS ORDERED: LEVOTHYROXINE NA 50 MCG TABLET (FP) ONE (05:17)
[2017-11-21] MEDS: HEPARIN NA (PORCINE) 5,000 UNITS/ML 1ML VIAL SQ SCH ×3 (05:30→21:55)
[2017-11-21] MEDS: NAPH,MB-DB/K PH,MBDB POWDER PACKET PO SCH ×3 (05:30→21:55)
[2017-11-21] MEDS: ASCORBIC ACID 500 MG TABLET (FP) PO SCH ×3 (05:30→21:55)
[2017-11-21] MEDS: VANCOMYCIN 250 MG/5 ML ORAL SOLUTION PO SCH ×3 (05:31→17:45)
[2017-11-21] MEDS: LEVOTHYROXINE 100 MCG, LEVOTHYROXINE 50 MCG PO SCH (06:00)
[2017-11-21 08:04] LABS: BASO % 0.8 % (0-2.0); EOS % 1.6 % (0-4.5); HEMATOCRIT 30.8 % (32.4-45.2); HEMOGLOBIN 9.8 GM/dL (10.7-15.3); LYMPH % 15.2 % (8-40); MCH 25.2 pg (25.7-33.7); MCHC 31.7 g/dl (32.0-36.0); MEAN CELL VOLUME 79.6 fl (80-96); MEAN PLT VOLUME 8.4 fl (7.5-11.1); NEUT % 76.4 % (42.8-82.8); PLATELET COUNT 352 K/MM3 (134-434); RBC 3.87 M/mm3 (3.60-5.2); RDW 16.3 % (11.6-15.6); WHITE BLOOD COUNT 11.7 K/mm3 (4.0-10.0)
[2017-11-21] MEDS: FERROUS SO4 325 MG TABLET (FP) PO SCH ×3 (08:19→17:45)
--- NOTE | 2017-11-21 08:58 | PN ---
Progress Note (short form) - Note Progress Note: Uncomfortable due to rectal tube. No CP or SOB. No acute events overnight. Intake & Output 11/18/17 11/19/17 11/20/17 11/21/17 23:59 23:59 23:59 23:59 Intake Total 2414 2112 2566 750 Output Total 525 200 Balance 1889 2 2566 750 Weight 83 lb 8 oz 83 lb 5 oz 87 lb 2 oz 90 lb 1 oz Last Vital Signs Temp Pulse Resp BP Pulse Ox 97.7 F 89 18 115/74 100 11/21/17 06:00 11/21/17 06:00 11/21/17 06:00 11/21/17 06:00 11/20/17 21:00 Active Medications Acetaminophen (Tylenol -) 650 mg PO Q4H PRN PRN Reason: PAIN OR FEVER Ascorbic Acid (Vitamin C -) 500 mg PO TID [facility] Last Admin: 11/21/17 05:30 Dose: 500 mg Aspirin (Ecotrin -) 81 mg PO DAILY [facility] Last Admin: 11/20/17 10:19 Dose: 81 mg Ferrous Sulfate (Feosol -) 325 mg PO TIDCM [facility] Last Admin: 11/21/17 08:19 Dose: 325 mg Heparin Sodium (Porcine) (Heparin -) 5,000 unit SQ TID [facility] Last Admin: 11/21/17 05:30 Dose: 5,000 unit Sodium Chloride (Normal Saline -) 1,000 mls @ 83 mls/hr IV ASDIR [facility] Last Admin: 11/21/17 01:21 Dose: 83 mls/hr Levothyroxine Sodium 100 mcg/ (Levothyroxine Sodium 50 mcg) 150 mcg PO DAILY@ 0700 [facility] Last Admin: 11/21/17 06:00 Dose: 150 mcg Lidocaine HCl (Xylocaine 2% Jelly) 1 applic TP Q12H PRN Last Admin: 11/20/17 21:00 Dose: 1 applic Potassium Chloride (Potassium Chloride Oral Liquid) 40 meq PO DAILY [facility] Potassium Phos/Sodium Phos (Phos-Nak Packet -) 1 packet PO TID [facility] Last Admin: 11/21/17 05:30 Dose: 1 packet Tramadol HCl (Ultram -) 50 mg PO Q8H PRN PRN Reason: PAIN LEVEL 7 - 10 Last Admin: 11/20/17 14:28 Dose: 50 mg Vancomycin HCl (Vancomycin Oral Solution) 125 mg PO Q6HPO [facility] Last Admin: 11/21/17 05:31 Dose: 125 mg Gen: awake, alert HEENT: dry mucous membranes Heart: RRR Lung: decreased breath sounds at the bases Abd: soft, nontender Ext: no edema Laboratory Results - last 24 hr 11/21/17 06:30 WBC 11.7 H RBC 3.87 Hgb 9.8 L Hct 30.8 L MCV 79.6 L MCH 25.2 L MCHC 31.7 L RDW 16.3 H Plt Count 352 MPV 8.4 Neutrophils % 76.4 Lymphocytes % 15.2 D Monocytes % 6.0 Eosinophils % 1.6 Basophils % 0.8 A/P Symptomatic Severe Hyponatremia improving Acute Kidney Injury + C diff r/o UTI CAD HTN Dementia - monitor/replete lytes - ABX per ID - IVF per Renal - PO as tolerated - Aspiration precautions - DVT prophylaxis Dr Machuca
[2017-11-21] MEDS: ASPIRIN COATED 81 MG TABLET.EC PO SCH (10:31)
[2017-11-21] MEDS: POTASSIUM CHLORIDE ORAL LIQUID 20 MEQ/15 ML PO SCH (10:31)
[2017-11-21] MEDS: traMADol HCL 50 MG TABLET PO PRN (10:34)
--- NOTE | 2017-11-21 10:47 | PN ---
Progress Note, Physician Chief Complaint: Pt laying in bed, slightly anxious, in no acute distress. Pt continues to have liquid diarrhea. Pt denies any chest pain, sob, n/v, or unilateral weakness. - Current Medication List Current Medications: Active Medications Acetaminophen (Tylenol -) 650 mg PO Q4H PRN PRN Reason: PAIN OR FEVER Ascorbic Acid (Vitamin C -) 500 mg PO TID [facility] Last Admin: 11/21/17 05:30 Dose: 500 mg Aspirin (Ecotrin -) 81 mg PO DAILY [facility] Last Admin: 11/21/17 10:31 Dose: 81 mg Ferrous Sulfate (Feosol -) 325 mg PO TIDCM [facility] Last Admin: 11/21/17 08:19 Dose: 325 mg Heparin Sodium (Porcine) (Heparin -) 5,000 unit SQ TID [facility] Last Admin: 11/21/17 05:30 Dose: 5,000 unit Sodium Chloride (Normal Saline -) 1,000 mls @ 83 mls/hr IV ASDIR [facility] Last Admin: 11/21/17 01:21 Dose: 83 mls/hr Levothyroxine Sodium 100 mcg/ (Levothyroxine Sodium 50 mcg) 150 mcg PO DAILY@ 0700 [facility] Last Admin: 11/21/17 06:00 Dose: 150 mcg Lidocaine HCl (Xylocaine 2% Jelly) 1 applic TP Q12H PRN Last Admin: 11/20/17 21:00 Dose: 1 applic Potassium Chloride (Potassium Chloride Oral Liquid) 40 meq PO DAILY [facility] Last Admin: 11/21/17 10:31 Dose: 40 meq Potassium Phos/Sodium Phos (Phos-Nak Packet -) 1 packet PO TID [facility] Last Admin: 11/21/17 05:30 Dose: 1 packet Tramadol HCl (Ultram -) 50 mg PO Q8H PRN PRN Reason: PAIN LEVEL 7 - 10 Last Admin: 11/21/17 10:34 Dose: 50 mg Vancomycin HCl (Vancomycin Oral Solution) 125 mg PO Q6HPO [facility] Last Admin: 11/21/17 05:31 Dose: 125 mg - Objective Vital Signs: Vital Signs Temperature 97.7 F 11/21/17 06:00 Pulse Rate 89 11/21/17 06:00 Respiratory Rate 18 11/21/17 06:00 Blood Pressure 115/74 11/21/17 06:00 O2 Sat by Pulse Oximetry (%) 100 11/20/17 21:00 Constitutional: Yes: No Distress, Calm Cardiovascular: Yes: WNL, Regular Rate and Rhythm Respiratory: Yes: WNL, CTA Bilaterally Gastrointestinal: Yes: WNL, Normal Bowel Sounds, Soft Edema: No Neurological: Yes: Alert Labs: CBC, BMP 11/21/17 06:30 INR, PTT INR 1.00 (0.82-1.09) 11/15/17 10:20 Problem List - Problems (1) Acute hyponatremia Code(s): E87.1 - HYPO-OSMOLALITY AND HYPONATREMIA (2) Acute metabolic encephalopathy Code(s): G93.41 - METABOLIC ENCEPHALOPATHY (3) Acute hypokalemia Code(s): E87.6 - HYPOKALEMIA (4) Acute kidney failure Code(s): N17.9 - ACUTE KIDNEY FAILURE, UNSPECIFIED (5) Diarrhea Code(s): R19.7 - DIARRHEA, UNSPECIFIED Qualifiers: Diarrhea type: infectious Qualified Code(s): A09 - Infectious gastroenteritis and colitis, unspecified (6) Hypotension Code(s): I95.9 - HYPOTENSION, UNSPECIFIED (7) Fall Code(s): W19.XXXA - UNSPECIFIED FALL, INITIAL ENCOUNTER (8) Hypothyroidism Code(s): E03.9 - HYPOTHYROIDISM, UNSPECIFIED (9) Anemia Code(s): D64.9 - ANEMIA, UNSPECIFIED Qualifiers: Anemia type: unspecified type Qualified Code(s): D64.9 - Anemia, unspecified (10) Fracture of left hip Code(s): S72.002A - FRACTURE OF UNSP PART OF NECK OF LEFT FEMUR, INIT Qualifiers: Encounter type: subsequent encounter Fracture type: closed (11) Dementia Code(s): F03.90 - UNSPECIFIED DEMENTIA WITHOUT BEHAVIORAL DISTURBANCE (12) Chronic left hip pain Code(s): M25.552 - PAIN IN LEFT HIP; G89.29 - OTHER CHRONIC PAIN (13) Clostridium difficile diarrhea Code(s): A04.72 - ENTEROCOLITIS D/T CLOSTRIDIUM DIFFICILE, NOT SPCF RECUR Assessment/Plan (1) Acute hyponatremia Assessment/Plan: Resolved Nephrology managed Code(s): E87.1 - HYPO-OSMOLALITY AND HYPONATREMIA (2) Acute metabolic encephalopathy Assessment/Plan: Resolved. pt back at baseline Code(s): G93.41 - METABOLIC ENCEPHALOPATHY (3) Acute hypokalemia Assessment/Plan: Resolved, potassium chloride 40meq po daily Continue to monitor labs Code(s): E87.6 - HYPOKALEMIA (4) Acute kidney failure Assessment/Plan: Resolved Code(s): N17.9 - ACUTE KIDNEY FAILURE, UNSPECIFIED (5) Diarrhea Assessment/Plan: Cdiff antigen positive, toxin negative. Pt still having liquid diarrhea. Mild leukocytosis, pt asymptomatic, will send UA/UC and consider cxr Flexiseal in place considering pt's risk for skin breakdown and incontinence Continue PO Vanco per ID Code(s): R19.7 - DIARRHEA, UNSPECIFIED (6) Hypotension Assessment/Plan: Improved Continue IVF hydration since pt still having diarrhea Code(s): I95.9 - HYPOTENSION, UNSPECIFIED (7) Fall Assessment/Plan: s/p fall at SNF, xrays, head CT negative, chronic fracture of left hip( unchanged from previous CT) Continue PT as tolerated, pt having significant pain with ambulation May benefit from administering tramadol 30 mins prior to PT session Code(s): W19.XXXA - UNSPECIFIED FALL, INITIAL ENCOUNTER (8) Hypothyroidism Assessment/Plan: Continue Levothyroxine Code(s): E03.9 - HYPOTHYROIDISM, UNSPECIFIED (9) Anemia Assessment/Plan: hg/hct stable Continue Ferrous sulfate will continue to monitor Code(s): D64.9 - ANEMIA, UNSPECIFIED Qualifiers: Anemia type: unspecified type Qualified Code(s): D64.9 - Anemia, unspecified (10) Fracture of left hip Assessment/Plan: unchanged from previous CT in September Pt had refused surgery Continue PT as tolerated Code(s): S72.002A - FRACTURE OF UNSP PART OF NECK OF LEFT FEMUR, INIT Qualifiers: Encounter type: subsequent encounter Fracture type: closed (11) Dementia Assessment/Plan: At baseline. Continue home meds. Monitor for changes (12) Chronic Left Hip Pain Assessment/Plan: secondary to old closed fracture, no intervention taken at the time Continue Tramadol PRN for adequate pain control especially before PT Dispo: SNF when diarrhea resolves
--- NOTE | 2017-11-21 11:09 | PN ---
Progress Note, Physician History of Present Illness: still with profuse dirrhoea clinically stable no specific complaints except dirrhoea wbc normalized - Current Medication List Current Medications: Active Medications Acetaminophen (Tylenol -) 650 mg PO Q4H PRN PRN Reason: PAIN OR FEVER Ascorbic Acid (Vitamin C -) 500 mg PO TID [facility] Last Admin: 11/21/17 05:30 Dose: 500 mg Aspirin (Ecotrin -) 81 mg PO DAILY [facility] Last Admin: 11/21/17 10:31 Dose: 81 mg Ferrous Sulfate (Feosol -) 325 mg PO TIDCM [facility] Last Admin: 11/21/17 08:19 Dose: 325 mg Heparin Sodium (Porcine) (Heparin -) 5,000 unit SQ TID [facility] Last Admin: 11/21/17 05:30 Dose: 5,000 unit Sodium Chloride (Normal Saline -) 1,000 mls @ 83 mls/hr IV ASDIR [facility] Last Admin: 11/21/17 01:21 Dose: 83 mls/hr Levothyroxine Sodium 100 mcg/ (Levothyroxine Sodium 50 mcg) 150 mcg PO DAILY@ 0700 [facility] Last Admin: 11/21/17 06:00 Dose: 150 mcg Lidocaine HCl (Xylocaine 2% Jelly) 1 applic TP Q12H PRN Last Admin: 11/20/17 21:00 Dose: 1 applic Potassium Chloride (Potassium Chloride Oral Liquid) 40 meq PO DAILY [facility] Last Admin: 11/21/17 10:31 Dose: 40 meq Potassium Phos/Sodium Phos (Phos-Nak Packet -) 1 packet PO TID [facility] Last Admin: 11/21/17 05:30 Dose: 1 packet Tramadol HCl (Ultram -) 50 mg PO Q8H PRN PRN Reason: PAIN LEVEL 7 - 10 Last Admin: 11/21/17 10:34 Dose: 50 mg Vancomycin HCl (Vancomycin Oral Solution) 125 mg PO Q6HPO [facility] Last Admin: 11/21/17 05:31 Dose: 125 mg - Objective Vital Signs: Vital Signs Temperature 97.7 F 11/21/17 06:00 Pulse Rate 78 11/21/17 11:00 Respiratory Rate 18 11/21/17 06:00 Blood Pressure 115/74 11/21/17 06:00 O2 Sat by Pulse Oximetry (%) 96 11/21/17 11:00 Constitutional: Yes: No Distress, Calm, Thin Cardiovascular: Yes: Regular Rate and Rhythm Respiratory: Yes: Regular, CTA Bilaterally Gastrointestinal: Yes: Normal Bowel Sounds, Soft, Other (dirrhoea) Musculoskeletal: Yes: WNL Extremities: Yes: WNL Neurological: Yes: Alert, Oriented Psychiatric: Yes: Alert, Oriented Labs: CBC, BMP 11/21/17 06:30 INR, PTT INR 1.00 (0.82-1.09) 11/15/17 10:20 Assessment/Plan Problem List - Problems (1) Acute hyponatremia Code(s): E87.1 - HYPO-OSMOLALITY AND HYPONATREMIA (2) Acute metabolic encephalopathy Code(s): G93.41 - METABOLIC ENCEPHALOPATHY (3) Acute hypokalemia Code(s): E87.6 - HYPOKALEMIA (4) Acute kidney failurey Code(s): N17.9 - ACUTE KIDNEY FAILURE, UNSPECIFIED (5) Diarrhea Code(s): R19.7 - DIARRHEA, UNSPECIFIED (6) Hypotension Code(s): I95.9 - HYPOTENSION, UNSPECIFIED (7) Fall Code(s): W19.XXXA - UNSPECIFIED FALL, INITIAL ENCOUNTER (8) Hypothyroidism Code(s): E03.9 - HYPOTHYROIDISM, UNSPECIFIED (9) Anemia Code(s): D64.9 - ANEMIA, UNSPECIFIED Qualifiers: Anemia type: unspecified type Qualified Code(s): D64.9 - Anemia, unspecified (10) Fracture of left hip Code(s): S72.002A - FRACTURE OF UNSP PART OF NECK OF LEFT FEMUR, INIT Qualifiers: Encounter type: subsequent encounter Fracture type: closed 11 sepsis plan continue oral vanco continue monitoring replacement of looses rest as per primary team stools improving
[2017-11-21] MEDS ORDERED: PT OWN MED DRAWER 7, Y5N ONE ×2 (12:12→17:06)
--- NOTE | 2017-11-21 13:08 | PN ---
Progress Note (short form) - Note Progress Note: Renal follow up for Severe Hyponatremia and renal failure Pt seen and examined at the bedside awake and alert no acute complaints no sob, chest pain rectal tube in place having loose stools Vital Signs Temperature 97.6 F 11/21/17 10:00 Pulse Rate 78 11/21/17 11:00 Respiratory Rate 16 11/21/17 10:00 Blood Pressure 110/70 11/21/17 10:00 O2 Sat by Pulse Oximetry (%) 96 11/21/17 11:00 Intake & Output 11/18/17 11/19/17 11/20/17 11/21/17 23:59 23:59 23:59 23:59 Intake Total 2414 2112 2566 1100 Output Total 525 200 Balance 1889 1912 2566 1100 Weight 37.875 kg 37.79 kg 39.519 kg 40.852 kg NAD soft NT/ND Abd No LE edema CBC, BMP 11/21/17 06:30 Current Medications Acetaminophen (Tylenol -) 650 mg PO Q4H PRN PRN Reason: PAIN OR FEVER Ascorbic Acid (Vitamin C -) 500 mg PO TID [facility] Last Admin: 11/21/17 05:30 Dose: 500 mg Aspirin (Ecotrin -) 81 mg PO DAILY [facility] Last Admin: 11/21/17 10:31 Dose: 81 mg Ferrous Sulfate (Feosol -) 325 mg PO TIDCM [facility] Last Admin: 11/21/17 12:25 Dose: 325 mg Heparin Sodium (Porcine) (Heparin -) 5,000 unit SQ TID [facility] Last Admin: 11/21/17 05:30 Dose: 5,000 unit Sodium Chloride (Normal Saline -) 1,000 mls @ 83 mls/hr IV ASDIR [facility] Last Admin: 11/21/17 12:10 Dose: Not Given Levothyroxine Sodium 100 mcg/ (Levothyroxine Sodium 50 mcg) 150 mcg PO DAILY@ 0700 [facility] Last Admin: 11/21/17 06:00 Dose: 150 mcg Lidocaine HCl (Xylocaine 2% Jelly) 1 applic TP Q12H PRN Last Admin: 11/20/17 21:00 Dose: 1 applic Potassium Chloride (Potassium Chloride Oral Liquid) 40 meq PO DAILY [facility] Last Admin: 11/21/17 10:31 Dose: 40 meq Potassium Phos/Sodium Phos (Phos-Nak Packet -) 1 packet PO TID [facility] Last Admin: 11/21/17 05:30 Dose: 1 packet Tramadol HCl (Ultram -) 50 mg PO Q8H PRN PRN Reason: PAIN LEVEL 7 - 10 Last Admin: 11/21/17 10:34 Dose: 50 mg Vancomycin HCl (Vancomycin Oral Solution) 125 mg PO Q6HPO [facility] Last Admin: 11/21/17 12:25 Dose: 125 mg 76 year old woman with PMhx of CKD (Hx of EVARISTO, Hydronephrotic right Kidney), Dementia, Hypertension who presented from [place] with syncope and AMS as inpatient and found to have hyponatremia with serum Na of 109 and EVARISTO. #Acute Symptomatic Hypovolemic Hyponatremia likely due to volume loss of diarrhea todays labs pending on isotonic saline can decrease rate would maintain on fluids as long as pt continues to have large volume diarrhea #Acute Renal Failure with preserved tubular function significantly improved continue isotonic saline for now #Metabolic acidosis in setting of diarrhea continue oral bicarb #Hypokalemia continue oral KCL #C-diff diarrhea continue PO Vanco #Hypophosphatemia continue neutraphos TID Thank you Ganesh Arteaga DO
[2017-11-21 13:30] LABS: ANION GAP 10 (8-16); BLOOD UREA NITROGEN 18 mg/dL (7-18); CHLORIDE 107 mmol/L (98-107); CO2 20 mmol/L (21-32); CREATININE 0.5 mg/dL (0.55-1.02); GLUCOSE,RANDOM 84 mg/dL (74-106); MAGNESIUM 1.6 mg/dL (1.8-2.4); PHOSPHOROUS 3.7 mg/dL (2.5-4.9); POTASSIUM 4.5 mmol/L (3.5-5.1); SODIUM 137 mmol/L (136-145)
[2017-11-21] MEDS ORDERED: MAGNESIUM SULFATE IN WATER 2 GM/50 ML IVPB IVPB ONE (14:30)
[2017-11-21 17:37] LABS: URINE APPEARANCE SLCLOUDY; URINE BILIRUBIN NEGATIVE (NEGATIVE); URINE BLOOD NEGATIVE (NEGATIVE); URINE COLOR YELLOW; URINE GLUCOSE (UA) 1+ (NEGATIVE); URINE KETONE NEGATIVE (NEGATIVE); URINE NITRITE NEGATIVE (NEGATIVE); URINE PROTEIN NEGATIVE (NEGATIVE); URINE UROBILINOGEN NEGATIVE mg/dL (0.2-1.0)
[2017-11-21 17:47] LABS: URINE LEUK ESTERASE 3+ (NEGATIVE)
[2017-11-21 17:48] LABS: EPI CELLS RARE /HPF (FEW); URINE BACTERIA RARE /hpf (NONE SEEN); URINE HYALINE CAST 1 /lpf; URINE MUCUS RARE
[2017-11-22] MEDS: VANCOMYCIN 250 MG/5 ML ORAL SOLUTION PO SCH ×4 (00:33→17:26)
[2017-11-22] MEDS ORDERED: LEVOTHYROXINE NA 50 MCG TABLET (FP) ONE (05:39)
[2017-11-22] MEDS ORDERED: LEVOTHYROXINE NA 100 MCG TABLET (FP) ONE (05:39)
[2017-11-22] MEDS: HEPARIN NA (PORCINE) 5,000 UNITS/ML 1ML VIAL SQ SCH ×3 (06:51→22:17)
[2017-11-22] MEDS: LEVOTHYROXINE 100 MCG, LEVOTHYROXINE 50 MCG PO SCH (06:51)
[2017-11-22] MEDS: ASCORBIC ACID 500 MG TABLET (FP) PO SCH ×3 (06:51→22:18)
[2017-11-22] MEDS: NAPH,MB-DB/K PH,MBDB POWDER PACKET PO SCH ×3 (06:55→22:17)
[2017-11-22 08:21] LABS: BASO % 0.8 % (0-2.0); EOS % 2.8 % (0-4.5); HEMATOCRIT 29.5 % (32.4-45.2); HEMOGLOBIN 9.5 GM/dL (10.7-15.3); LYMPH % 14.8 % (8-40); MCH 25.7 pg (25.7-33.7); MCHC 32.4 g/dl (32.0-36.0); MEAN CELL VOLUME 79.5 fl (80-96); MEAN PLT VOLUME 8.4 fl (7.5-11.1); MONO % 6.1 % (3.8-10.2); NEUT % 75.5 % (42.8-82.8); PLATELET COUNT 348 K/MM3 (134-434); RBC 3.71 M/mm3 (3.60-5.2); RDW 16.7 % (11.6-15.6); WHITE BLOOD COUNT 9.9 K/mm3 (4.0-10.0)
[2017-11-22] MEDS: FERROUS SO4 325 MG TABLET (FP) PO SCH ×3 (08:32→17:26)
[2017-11-22 08:35] LABS: ANION GAP 8 (8-16); BLOOD UREA NITROGEN 10 mg/dL (7-18); CALCIUM 8.2 mg/dL (8.5-10.1); CHLORIDE 109 mmol/L (98-107); CO2 21 mmol/L (21-32); CREATININE 0.5 mg/dL (0.55-1.02); GLUCOSE,RANDOM 89 mg/dL (74-106); MAGNESIUM 2.1 mg/dL (1.8-2.4); PHOSPHOROUS 3.4 mg/dL (2.5-4.9); POTASSIUM 4.6 mmol/L (3.5-5.1); SODIUM 138 mmol/L (136-145)
[2017-11-22] MEDS ORDERED: PT OWN MED DRAWER 7, Y5N ONE ×2 (09:21→11:52)
[2017-11-22] MEDS: POTASSIUM CHLORIDE ORAL LIQUID 20 MEQ/15 ML PO SCH (09:27)
[2017-11-22] MEDS: traMADol HCL 50 MG TABLET PO PRN (09:27)
[2017-11-22] MEDS: ASPIRIN COATED 81 MG TABLET.EC PO SCH (09:28)
--- NOTE | 2017-11-22 09:41 | PN ---
Progress Note, Physician Chief Complaint: Pt laying in bed,in no acute distress. Pt continues to have liquid diarrhea. Pt denies any chest pain, sob, n/v, or unilateral weakness. - Current Medication List Current Medications: Active Medications Acetaminophen (Tylenol -) 650 mg PO Q4H PRN PRN Reason: PAIN OR FEVER Ascorbic Acid (Vitamin C -) 500 mg PO TID [facility] Last Admin: 11/22/17 06:51 Dose: 500 mg Aspirin (Ecotrin -) 81 mg PO DAILY [facility] Last Admin: 11/22/17 09:28 Dose: 81 mg Ferrous Sulfate (Feosol -) 325 mg PO TIDCM [facility] Last Admin: 11/22/17 08:32 Dose: 325 mg Heparin Sodium (Porcine) (Heparin -) 5,000 unit SQ TID [facility] Last Admin: 11/22/17 06:51 Dose: 5,000 unit Sodium Chloride (Normal Saline -) 1,000 mls @ 60 mls/hr IV ASDIR [facility] Last Admin: 11/21/17 13:38 Dose: 60 mls/hr Levothyroxine Sodium 100 mcg/ (Levothyroxine Sodium 50 mcg) 150 mcg PO DAILY@ 0700 [facility] Last Admin: 11/22/17 06:51 Dose: 150 mcg Lidocaine HCl (Xylocaine 2% Jelly) 1 applic TP Q12H PRN Last Admin: 11/20/17 21:00 Dose: 1 applic Potassium Chloride (Potassium Chloride Oral Liquid) 40 meq PO DAILY [facility] Last Admin: 11/22/17 09:27 Dose: 40 meq Potassium Phos/Sodium Phos (Phos-Nak Packet -) 1 packet PO TID [facility] Last Admin: 11/22/17 06:55 Dose: 1 packet Tramadol HCl (Ultram -) 50 mg PO Q8H PRN PRN Reason: PAIN LEVEL 7 - 10 Last Admin: 11/22/17 09:27 Dose: 50 mg Vancomycin HCl (Vancomycin Oral Solution) 125 mg PO Q6HPO [facility] Last Admin: 11/22/17 06:55 Dose: 125 mg - Objective Vital Signs: Vital Signs Temperature 98.6 F 11/22/17 06:47 Pulse Rate 89 11/22/17 06:47 Respiratory Rate 20 11/22/17 06:47 Blood Pressure 109/62 11/22/17 06:47 O2 Sat by Pulse Oximetry (%) 96 11/21/17 21:00 Constitutional: Yes: Well Nourished, No Distress, Calm Cardiovascular: Yes: WNL, Regular Rate and Rhythm. No: Gallop, Murmur, Rub Respiratory: Yes: WNL, Regular, CTA Bilaterally Gastrointestinal: Yes: WNL, Normal Bowel Sounds, Soft Extremities: Yes: WNL Edema: No Neurological: Yes: WNL, Alert Psychiatric: Yes: WNL, Alert Labs: CBC, BMP 11/22/17 07:20 11/22/17 07:20 INR, PTT INR 1.00 (0.82-1.09) 11/15/17 10:20 Problem List - Problems (1) Acute hyponatremia Code(s): E87.1 - HYPO-OSMOLALITY AND HYPONATREMIA (2) Acute metabolic encephalopathy Code(s): G93.41 - METABOLIC ENCEPHALOPATHY (3) Acute hypokalemia Code(s): E87.6 - HYPOKALEMIA (4) Acute kidney failure Code(s): N17.9 - ACUTE KIDNEY FAILURE, UNSPECIFIED (5) Diarrhea Code(s): R19.7 - DIARRHEA, UNSPECIFIED Qualifiers: Diarrhea type: infectious Qualified Code(s): A09 - Infectious gastroenteritis and colitis, unspecified (6) Hypotension Code(s): I95.9 - HYPOTENSION, UNSPECIFIED (7) Fall Code(s): W19.XXXA - UNSPECIFIED FALL, INITIAL ENCOUNTER (8) Hypothyroidism Code(s): E03.9 - HYPOTHYROIDISM, UNSPECIFIED (9) Anemia Code(s): D64.9 - ANEMIA, UNSPECIFIED Qualifiers: Anemia type: unspecified type Qualified Code(s): D64.9 - Anemia, unspecified (10) Fracture of left hip Code(s): S72.002A - FRACTURE OF UNSP PART OF NECK OF LEFT FEMUR, INIT Qualifiers: Encounter type: subsequent encounter Fracture type: closed (11) Dementia Code(s): F03.90 - UNSPECIFIED DEMENTIA WITHOUT BEHAVIORAL DISTURBANCE (12) Chronic left hip pain Code(s): M25.552 - PAIN IN LEFT HIP; G89.29 - OTHER CHRONIC PAIN (13) Clostridium difficile diarrhea Code(s): A04.72 - ENTEROCOLITIS D/T CLOSTRIDIUM DIFFICILE, NOT SPCF RECUR Assessment/Plan (1) Acute hyponatremia Assessment/Plan: Resolved Code(s): E87.1 - HYPO-OSMOLALITY AND HYPONATREMIA (2) Acute metabolic encephalopathy Assessment/Plan: Resolved. pt back at baseline Code(s): G93.41 - METABOLIC ENCEPHALOPATHY (3) Acute hypokalemia Assessment/Plan: Resolved, potassium chloride 40meq po daily Continue to monitor labs Code(s): E87.6 - HYPOKALEMIA (4) Acute kidney failure Assessment/Plan: Resolved Code(s): N17.9 - ACUTE KIDNEY FAILURE, UNSPECIFIED (5) Diarrhea Assessment/Plan: Cdiff antigen positive, toxin negative. Pt still having liquid diarrhea. Flexiseal in place considering pt's risk for skin breakdown and incontinence Continue PO Vanco per ID Code(s): R19.7 - DIARRHEA, UNSPECIFIED (6) Hypotension Assessment/Plan: Improved Continue IVF hydration since pt still having diarrhea Code(s): I95.9 - HYPOTENSION, UNSPECIFIED (7) Fall Assessment/Plan: s/p fall at SNF, xrays, head CT negative, chronic fracture of left hip( unchanged from previous CT) Continue PT as tolerated, pt having significant pain with ambulation May benefit from administering tramadol 30 mins prior to PT session Code(s): W19.XXXA - UNSPECIFIED FALL, INITIAL ENCOUNTER (8) Hypothyroidism Assessment/Plan: Continue Levothyroxine Code(s): E03.9 - HYPOTHYROIDISM, UNSPECIFIED (9) Anemia Assessment/Plan: hg/hct stable Continue Ferrous sulfate will continue to monitor Code(s): D64.9 - ANEMIA, UNSPECIFIED Qualifiers: Anemia type: unspecified type Qualified Code(s): D64.9 - Anemia, unspecified (10) Fracture of left hip Assessment/Plan: unchanged from previous CT in September Pt had refused surgery Continue PT as tolerated Code(s): S72.002A - FRACTURE OF UNSP PART OF NECK OF LEFT FEMUR, INIT Qualifiers: Encounter type: subsequent encounter Fracture type: closed (11) Dementia Assessment/Plan: At baseline. Continue home meds. Monitor for changes (12) Chronic Left Hip Pain Assessment/Plan: secondary to old closed fracture, no intervention taken at the time Continue Tramadol PRN for adequate pain control especially before PT Dispo: SNF when diarrhea resolves
[2017-11-22] MEDS: SODIUM CHLORIDE 1,000 ML IV SCH (14:33)
--- NOTE | 2017-11-22 16:20 | PN ---
Progress Note (short form) - Note Progress Note: Renal follow up for Severe Hyponatremia and renal failure Pt seen and examined at the bedside awake and alert continues to have liquid diarrhea no sob, chest pain on IVF Vital Signs Temperature 98.0 F 11/22/17 15:35 Pulse Rate 113 H 11/22/17 15:35 Respiratory Rate 20 11/22/17 15:35 Blood Pressure 119/63 11/22/17 15:35 O2 Sat by Pulse Oximetry (%) 99 11/22/17 09:00 Intake & Output 11/19/17 11/20/17 11/21/17 11/22/17 23:59 23:59 23:59 23:59 Intake Total 2112 2566 2648 1370 Output Total 200 Balance 1912 2566 2648 1370 Weight 37.79 kg 39.519 kg 40.852 kg 41.186 kg NAD soft NT/ND Abd No LE edema CBC, BMP 11/22/17 07:20 11/22/17 07:20 Laboratory Tests 11/22/17 07:20 Phosphorus 3.4 Magnesium 2.1 Current Medications Acetaminophen (Tylenol -) 650 mg PO Q4H PRN PRN Reason: PAIN OR FEVER Ascorbic Acid (Vitamin C -) 500 mg PO TID [facility] Last Admin: 11/22/17 14:33 Dose: 500 mg Aspirin (Ecotrin -) 81 mg PO DAILY [facility] Last Admin: 11/22/17 09:28 Dose: 81 mg Ferrous Sulfate (Feosol -) 325 mg PO TIDCM [facility] Last Admin: 11/22/17 11:57 Dose: 325 mg Heparin Sodium (Porcine) (Heparin -) 5,000 unit SQ TID [facility] Last Admin: 11/22/17 14:33 Dose: 5,000 unit Sodium Chloride (Normal Saline -) 1,000 mls @ 60 mls/hr IV ASDIR [facility] Last Admin: 11/22/17 14:33 Dose: Not Given Levothyroxine Sodium 100 mcg/ (Levothyroxine Sodium 50 mcg) 150 mcg PO DAILY@ 0700 [facility] Last Admin: 11/22/17 06:51 Dose: 150 mcg Lidocaine HCl (Xylocaine 2% Jelly) 1 applic TP Q12H PRN Last Admin: 11/20/17 21:00 Dose: 1 applic Potassium Chloride (Potassium Chloride Oral Liquid) 40 meq PO DAILY [facility] Last Admin: 11/22/17 09:27 Dose: 40 meq Potassium Phos/Sodium Phos (Phos-Nak Packet -) 1 packet PO TID [facility] Last Admin: 11/22/17 14:33 Dose: 1 packet Tramadol HCl (Ultram -) 50 mg PO Q8H PRN PRN Reason: PAIN LEVEL 7 - 10 Last Admin: 11/22/17 09:27 Dose: 50 mg Vancomycin HCl (Vancomycin Oral Solution) 125 mg PO Q6HPO [facility] Last Admin: 11/22/17 11:57 Dose: 125 mg 76 year old woman with PMhx of CKD (Hx of EVARISTO, Hydronephrotic right Kidney), Dementia, Hypertension who presented from [place] with syncope and AMS as inpatient and found to have hyponatremia with serum Na of 109 and EVARISTO. #Acute Symptomatic Hypovolemic Hyponatremia and acute renal failure Renal function and Na improved and stable continue IVF as pt's diarrhea continues #Metabolic acidosis in setting of diarrhea continue oral bicarb #Hypokalemia continue oral KCL #C-diff diarrhea continue PO Vanco #Hypophosphatemia continue neutraphos BID Thank you Ganesh Arteaga DO
[2017-11-23] MEDS: SODIUM CHLORIDE 1,000 ML IV SCH ×3 (01:32→17:54)
[2017-11-23] MEDS ORDERED: LEVOTHYROXINE NA 100 MCG TABLET (FP) ONE (05:40)
[2017-11-23] MEDS ORDERED: LEVOTHYROXINE NA 50 MCG TABLET (FP) ONE (05:40)
[2017-11-23] MEDS: HEPARIN NA (PORCINE) 5,000 UNITS/ML 1ML VIAL SQ SCH ×3 (06:47→22:41)
[2017-11-23] MEDS: VANCOMYCIN 250 MG/5 ML ORAL SOLUTION PO SCH ×4 (06:47→17:37)
[2017-11-23] MEDS: LEVOTHYROXINE 100 MCG, LEVOTHYROXINE 50 MCG PO SCH (06:47)
[2017-11-23] MEDS: ASCORBIC ACID 500 MG TABLET (FP) PO SCH ×3 (06:47→22:41)
[2017-11-23 08:24] LABS: BASO % 0.6 % (0-2.0); EOS % 2.4 % (0-4.5); HEMATOCRIT 29.1 % (32.4-45.2); HEMOGLOBIN 9.3 GM/dL (10.7-15.3); LYMPH % 13.1 % (8-40); MCH 25.7 pg (25.7-33.7); MEAN CELL VOLUME 80.3 fl (80-96); MEAN PLT VOLUME 8.3 fl (7.5-11.1); MONO % 6.9 % (3.8-10.2); PLATELET COUNT 364 K/MM3 (134-434); RBC 3.62 M/mm3 (3.60-5.2); RDW 16.5 % (11.6-15.6); WHITE BLOOD COUNT 10.1 K/mm3 (4.0-10.0)
[2017-11-23] MEDS: FERROUS SO4 325 MG TABLET (FP) PO SCH ×3 (08:48→17:38)
[2017-11-23 09:11] LABS: ANION GAP 9 (8-16); BLOOD UREA NITROGEN 11 mg/dL (7-18); CALCIUM 7.8 mg/dL (8.5-10.1); CHLORIDE 108 mmol/L (98-107); CO2 21 mmol/L (21-32); GLUCOSE,RANDOM 80 mg/dL (74-106); MAGNESIUM 1.7 mg/dL (1.8-2.4); POTASSIUM 4.5 mmol/L (3.5-5.1); SODIUM 138 mmol/L (136-145)
[2017-11-23 09:13] LABS: CREATININE 0.5 mg/dL (0.55-1.02); PHOSPHOROUS 3.2 mg/dL (2.5-4.9)
[2017-11-23] MEDS ORDERED: PT OWN MED DRAWER 7, Y5N ONE (10:23)
[2017-11-23] MEDS: POTASSIUM CHLORIDE ORAL LIQUID 20 MEQ/15 ML PO SCH (10:29)
[2017-11-23] MEDS: ASPIRIN COATED 81 MG TABLET.EC PO SCH (10:29)
[2017-11-23] MEDS: NAPH,MB-DB/K PH,MBDB POWDER PACKET PO SCH ×2 (10:29→22:41)
[2017-11-23] MEDS: traMADol HCL 50 MG TABLET PO PRN (10:29)
--- NOTE | 2017-11-23 10:59 | PN ---
Progress Note (short form) - Note Progress Note: Still with diarrhea via Flexiseal. No CP or SOB. No acute events overnight. Intake & Output 11/20/17 11/21/17 11/22/17 11/23/17 23:59 23:59 23:59 23:59 Intake Total 2566 2648 2630 1130 Output Total 200 Balance 2566 2648 2630 930 Weight 87 lb 2 oz 90 lb 1 oz 90 lb 12.8 oz 91 lb Last Vital Signs Temp Pulse Resp BP Pulse Ox 98.1 F 103 H 18 114/69 97 11/23/17 10:00 11/23/17 10:00 11/23/17 10:00 11/23/17 10:00 11/22/17 21:00 Active Medications Acetaminophen (Tylenol -) 650 mg PO Q4H PRN PRN Reason: PAIN OR FEVER Ascorbic Acid (Vitamin C -) 500 mg PO TID [facility] Last Admin: 11/23/17 06:47 Dose: 500 mg Aspirin (Ecotrin -) 81 mg PO DAILY [facility] Last Admin: 11/23/17 10:29 Dose: 81 mg Ferrous Sulfate (Feosol -) 325 mg PO TIDCM [facility] Last Admin: 11/23/17 08:48 Dose: 325 mg Heparin Sodium (Porcine) (Heparin -) 5,000 unit SQ TID [facility] Last Admin: 11/23/17 06:47 Dose: 5,000 unit Sodium Chloride (Normal Saline -) 1,000 mls @ 60 mls/hr IV ASDIR [facility] Last Admin: 11/23/17 01:32 Dose: 60 mls/hr Levothyroxine Sodium 100 mcg/ (Levothyroxine Sodium 50 mcg) 150 mcg PO DAILY@ 0700 [facility] Last Admin: 11/23/17 06:47 Dose: 150 mcg Lidocaine HCl (Xylocaine 2% Jelly) 1 applic TP Q12H PRN Last Admin: 11/20/17 21:00 Dose: 1 applic Potassium Chloride (Potassium Chloride Oral Liquid) 40 meq PO DAILY [facility] Last Admin: 11/23/17 10:29 Dose: 40 meq Potassium Phos/Sodium Phos (Phos-Nak Packet -) 1 packet PO BID [facility] Last Admin: 11/23/17 10:29 Dose: 1 packet Tramadol HCl (Ultram -) 50 mg PO Q8H PRN PRN Reason: PAIN LEVEL 7 - 10 Last Admin: 11/23/17 10:29 Dose: 50 mg Vancomycin HCl (Vancomycin Oral Solution) 125 mg PO Q6HPO [facility] Last Admin: 11/23/17 06:47 Dose: 125 mg Gen: awake, NAD HEENT: dry mucous membranes Heart: RRR Lung: decreased breath sounds at the bases Abd: soft, nontender Ext: no edema Laboratory Results - last 24 hr 11/23/17 11/23/17 07:30 07:30 WBC 10.1 H RBC 3.62 Hgb 9.3 L Hct 29.1 L MCV 80.3 MCH 25.7 MCHC 32.0 RDW 16.5 H Plt Count 364 MPV 8.3 Neutrophils % 77.0 Lymphocytes % 13.1 Monocytes % 6.9 Eosinophils % 2.4 Basophils % 0.6 Sodium 138 Potassium 4.5 Chloride 108 H Carbon Dioxide 21 Anion Gap 9 BUN 11 Creatinine 0.5 L Random Glucose 80 Calcium 7.8 L Phosphorus 3.2 Magnesium 1.7 L A/P Symptomatic Severe Hyponatremia improving Acute Kidney Injury + C diff r/o UTI CAD HTN Dementia - monitor/replete lytes per Renal - ABX per ID - PO as tolerated - Aspiration precautions - DVT prophylaxis Dr Machuca
--- NOTE | 2017-11-23 14:05 | PN ---
Progress Note, Physician Chief Complaint: Still green color diarrhe, rectal tube at place. History of Present Illness: 76 year old female with history of Dementia, frequent falls, hypothyroidism, Anemia and Left hip fracture(refused surgery) brought in from [facility] s/p fall/syncope and diarrhea. lab show sever Hyponatremia, Hypokalemia, dehydration with Diarrhea now improved. - Current Medication List Current Medications: Active Medications Acetaminophen (Tylenol -) 650 mg PO Q4H PRN PRN Reason: PAIN OR FEVER Ascorbic Acid (Vitamin C -) 500 mg PO TID [facility] Last Admin: 11/23/17 06:47 Dose: 500 mg Aspirin (Ecotrin -) 81 mg PO DAILY [facility] Last Admin: 11/23/17 10:29 Dose: 81 mg Ferrous Sulfate (Feosol -) 325 mg PO TIDCM [facility] Last Admin: 11/23/17 12:13 Dose: 325 mg Heparin Sodium (Porcine) (Heparin -) 5,000 unit SQ TID [facility] Last Admin: 11/23/17 06:47 Dose: 5,000 unit Sodium Chloride (Normal Saline -) 1,000 mls @ 60 mls/hr IV ASDIR [facility] Last Admin: 11/23/17 01:32 Dose: 60 mls/hr Levothyroxine Sodium 100 mcg/ (Levothyroxine Sodium 50 mcg) 150 mcg PO DAILY@ 0700 [facility] Last Admin: 11/23/17 06:47 Dose: 150 mcg Lidocaine HCl (Xylocaine 2% Jelly) 1 applic TP Q12H PRN Last Admin: 11/20/17 21:00 Dose: 1 applic Potassium Chloride (Potassium Chloride Oral Liquid) 40 meq PO DAILY [facility] Last Admin: 11/23/17 10:29 Dose: 40 meq Potassium Phos/Sodium Phos (Phos-Nak Packet -) 1 packet PO BID [facility] Last Admin: 11/23/17 10:29 Dose: 1 packet Tramadol HCl (Ultram -) 50 mg PO Q8H PRN PRN Reason: PAIN LEVEL 7 - 10 Last Admin: 11/23/17 10:29 Dose: 50 mg Vancomycin HCl (Vancomycin Oral Solution) 125 mg PO Q6HPO [facility] Last Admin: 11/23/17 12:13 Dose: 125 mg - Objective Vital Signs: Vital Signs Temperature 98.1 F 11/23/17 10:00 Pulse Rate 103 H 11/23/17 10:00 Respiratory Rate 18 01/20/18 10:00 Blood Pressure 114/69 11/23/17 10:00 O2 Sat by Pulse Oximetry (%) 98 11/23/17 09:00 Elderly F frail, not in distress, more alert, not in distress. HEENT: Mm moist, no anemia, PERRLA EOMI NECK; No JVD No Bruit CHEST: CTA B/L CVS: S1S2 R no m/g/r ABD: Rectal tube at place, no distention, non tender Bs + EXT: No edema, pulses + FLAKER TENDER: no interval changes Labs: CBC, BMP 11/23/17 07:30 11/23/17 07:30 INR, PTT INR 1.00 (0.82-1.09) 11/15/17 10:20 Problem List - Problems (1) Acute metabolic encephalopathy Assessment/Plan: Due to dehydration and severe Hypernatremia, improved. Code(s): G93.41 - METABOLIC ENCEPHALOPATHY (2) Acute hyponatremia Assessment/Plan: Severe Hyponatremia with Dehydration improved. Code(s): E87.1 - HYPO-OSMOLALITY AND HYPONATREMIA (3) Hypothyroidism Assessment/Plan: F/U TSH on Levothyroxine Code(s): E03.9 - HYPOTHYROIDISM, UNSPECIFIED (4) Fracture of left hip Assessment/Plan: Opted for non operative treatment, pain control, no Wt bearing. Code(s): S72.002A - FRACTURE OF UNSP PART OF NECK OF LEFT FEMUR, INIT Qualifiers: Encounter type: subsequent encounter Fracture type: closed (5) Anemia Assessment/Plan: Chronic h/h stablecont PO Iron Code(s): D64.9 - ANEMIA, UNSPECIFIED Qualifiers: Anemia type: unspecified type Qualified Code(s): D64.9 - Anemia, unspecified (6) Diarrhea Assessment/Plan: C Diff + Cont vancomycine Code(s): R19.7 - DIARRHEA, UNSPECIFIED Qualifiers: Diarrhea type: infectious Qualified Code(s): A09 - Infectious gastroenteritis and colitis, unspecified (7) EVARISTO (acute kidney injury) Assessment/Plan: Improved with Hydration Code(s): N17.9 - ACUTE KIDNEY FAILURE, UNSPECIFIED
--- NOTE | 2017-11-23 14:21 | PN ---
Progress Note, Physician History of Present Illness: Pt seen and examined. Still with loose stools in fecal tube. No abdominal pain. Remains afebrile. No other specific complaints. - Current Medication List Current Medications: Active Medications Acetaminophen (Tylenol -) 650 mg PO Q4H PRN PRN Reason: PAIN OR FEVER Ascorbic Acid (Vitamin C -) 500 mg PO TID [facility] Last Admin: 11/23/17 06:47 Dose: 500 mg Aspirin (Ecotrin -) 81 mg PO DAILY [facility] Last Admin: 11/23/17 10:29 Dose: 81 mg Ferrous Sulfate (Feosol -) 325 mg PO TIDCM [facility] Last Admin: 11/23/17 12:13 Dose: 325 mg Heparin Sodium (Porcine) (Heparin -) 5,000 unit SQ TID [facility] Last Admin: 11/23/17 06:47 Dose: 5,000 unit Sodium Chloride (Normal Saline -) 1,000 mls @ 60 mls/hr IV ASDIR [facility] Last Admin: 11/23/17 14:15 Dose: Not Given Levothyroxine Sodium 100 mcg/ (Levothyroxine Sodium 50 mcg) 150 mcg PO DAILY@ 0700 [facility] Last Admin: 11/23/17 06:47 Dose: 150 mcg Lidocaine HCl (Xylocaine 2% Jelly) 1 applic TP Q12H PRN Last Admin: 11/20/17 21:00 Dose: 1 applic Potassium Chloride (Potassium Chloride Oral Liquid) 40 meq PO DAILY [facility] Last Admin: 11/23/17 10:29 Dose: 40 meq Potassium Phos/Sodium Phos (Phos-Nak Packet -) 1 packet PO BID [facility] Last Admin: 11/23/17 10:29 Dose: 1 packet Tramadol HCl (Ultram -) 50 mg PO Q8H PRN PRN Reason: PAIN LEVEL 7 - 10 Last Admin: 11/23/17 10:29 Dose: 50 mg Vancomycin HCl (Vancomycin Oral Solution) 125 mg PO Q6HPO [facility] Last Admin: 11/23/17 12:13 Dose: 125 mg - Objective Vital Signs: Vital Signs Temperature 98.1 F 11/23/17 10:00 Pulse Rate 103 H 11/23/17 10:00 Respiratory Rate 18 11/23/17 10:00 Blood Pressure 114/69 11/23/17 10:00 O2 Sat by Pulse Oximetry (%) 98 11/23/17 09:00 Constitutional: Yes: No Distress, Calm Cardiovascular: Yes: Regular Rate and Rhythm Respiratory: Yes: CTA Bilaterally Gastrointestinal: Yes: Normal Bowel Sounds, Soft, Other (fecal back with liquid stool) Edema: No Neurological: Yes: Alert Labs: CBC, BMP 11/23/17 07:30 11/23/17 07:30 INR, PTT INR 1.00 (0.82-1.09) 11/15/17 10:20 Microbiology 11/21/17 15:17 Urine - Urine Clean Catch Urine Culture - Final Contaminated: Please Repeat 11/15/17 10:20 Blood - Peripheral Venous Blood Culture - Final NO GROWTH AFTER 5 DAYS INCUBATION 11/15/17 11:10 Blood - Peripheral Venous Blood Culture - Final NO GROWTH AFTER 5 DAYS INCUBATION 11/17/17 20:30 Stool Clostridium difficile Antigen (BARBY) - Final 11/17/17 20:30 Stool Clostridium difficile Toxin Assay - Final 11/15/17 10:20 Urine - Urine Clean Catch Urine Culture - Final Yeast Like Organism 11/15/17 10:20 Nasopharyngeal Swab Influenza Types A,B Antigen (BARYB) - Final 11/15/17 10:20 Nasopharyngeal Swab - Final Problem List - Problems (1) EVARISTO (acute kidney injury) Code(s): N17.9 - ACUTE KIDNEY FAILURE, UNSPECIFIED (2) Acute hypokalemia Code(s): E87.6 - HYPOKALEMIA (3) Acute hyponatremia Code(s): E87.1 - HYPO-OSMOLALITY AND HYPONATREMIA (4) Diarrhea Code(s): R19.7 - DIARRHEA, UNSPECIFIED Qualifiers: Diarrhea type: infectious Qualified Code(s): A09 - Infectious gastroenteritis and colitis, unspecified Assessment/Plan Persistent Diarrhea C. difficile Ag +/ Toxin negative -- cont vancomycin po -- repeat cbc tomorrow -- consider GI evaluation -- replace electrolytes as needed
[2017-11-24] MEDS: VANCOMYCIN 250 MG/5 ML ORAL SOLUTION PO SCH ×4 (00:08→17:39)
[2017-11-24] MEDS ORDERED: LEVOTHYROXINE NA 100 MCG TABLET (FP) ONE (06:16)
[2017-11-24] MEDS ORDERED: LEVOTHYROXINE NA 50 MCG TABLET (FP) ONE (06:16)
[2017-11-24] MEDS: LEVOTHYROXINE 100 MCG, LEVOTHYROXINE 50 MCG PO SCH (06:19)
[2017-11-24] MEDS: ASCORBIC ACID 500 MG TABLET (FP) PO SCH ×3 (06:19→22:59)
[2017-11-24] MEDS: HEPARIN NA (PORCINE) 5,000 UNITS/ML 1ML VIAL SQ SCH ×2 (06:31→14:06)
[2017-11-24 07:38] LABS: BASO % 0.7 % (0-2.0); EOS % 2.5 % (0-4.5); HEMATOCRIT 30.1 % (32.4-45.2); HEMOGLOBIN 9.6 GM/dL (10.7-15.3); LYMPH % 13.6 % (8-40); MCH 25.9 pg (25.7-33.7); MCHC 31.9 g/dl (32.0-36.0); MEAN CELL VOLUME 81.3 fl (80-96); NEUT % 76.2 % (42.8-82.8); PLATELET COUNT 369 K/MM3 (134-434); RBC 3.71 M/mm3 (3.60-5.2); RDW 17.1 % (11.6-15.6); WHITE BLOOD COUNT 9.8 K/mm3 (4.0-10.0)
[2017-11-24 07:41] LABS: ALBUMIN 2.3 g/dl (3.4-5.0); ANION GAP 7 (8-16); BLOOD UREA NITROGEN 12 mg/dL (7-18); CALCIUM 8.1 mg/dL (8.5-10.1); CHLORIDE 109 mmol/L (98-107); CO2 22 mmol/L (21-32); GLUCOSE,RANDOM 90 mg/dL (74-106); POTASSIUM 4.6 mmol/L (3.5-5.1); SODIUM 138 mmol/L (136-145)
[2017-11-24 07:44] LABS: ALK PHOS 90 U/L (45-117); BILIRUBIN,TOTAL 0.3 mg/dL (0.2-1.0); CREATININE 0.6 mg/dL (0.55-1.02); SGOT/AST 11 U/L (15-37); SGPT/ALT 19 U/L (12-78); TOT PROT 5.6 g/dl (6.4-8.2)
[2017-11-24] MEDS: FERROUS SO4 325 MG TABLET (FP) PO SCH ×2 (08:38→12:23)
[2017-11-24] MEDS: ASPIRIN COATED 81 MG TABLET.EC PO SCH (09:12)
[2017-11-24] MEDS: NAPH,MB-DB/K PH,MBDB POWDER PACKET PO SCH ×2 (09:12→22:59)
[2017-11-24] MEDS: POTASSIUM CHLORIDE ORAL LIQUID 20 MEQ/15 ML PO SCH (09:13)
--- NOTE | 2017-11-24 10:34 | PN ---
Progress Note (short form) - Note Progress Note: Resting in NAD. No CP or SOB. Still with diarrhea via Flexiseal. No acute events overnight. Intake & Output 11/21/17 11/22/17 11/23/17 11/24/17 23:59 23:59 23:59 23:59 Intake Total 2648 2630 2350 400 Output Total 200 Balance 2648 2630 2150 400 Weight 90 lb 1 oz 90 lb 12.8 oz 91 lb 89 lb 3 oz Last Vital Signs Temp Pulse Resp BP Pulse Ox 97.9 F 80 18 113/65 98 11/24/17 07:15 11/24/17 07:15 11/24/17 07:15 11/24/17 07:15 11/23/17 21:00 Active Medications Acetaminophen (Tylenol -) 650 mg PO Q4H PRN PRN Reason: PAIN OR FEVER Ascorbic Acid (Vitamin C -) 500 mg PO TID [facility] Last Admin: 11/24/17 06:19 Dose: 500 mg Aspirin (Ecotrin -) 81 mg PO DAILY [facility] Last Admin: 11/24/17 09:12 Dose: 81 mg Ferrous Sulfate (Feosol -) 325 mg PO TIDCM [facility] Last Admin: 11/24/17 08:38 Dose: 325 mg Heparin Sodium (Porcine) (Heparin -) 5,000 unit SQ TID [facility] Last Admin: 11/24/17 06:31 Dose: 5,000 unit Sodium Chloride (Normal Saline -) 1,000 mls @ 60 mls/hr IV ASDIR [facility] Last Admin: 11/23/17 17:54 Dose: 60 mls/hr Levothyroxine Sodium 100 mcg/ (Levothyroxine Sodium 50 mcg) 150 mcg PO DAILY@ 0700 [facility] Last Admin: 11/24/17 06:19 Dose: 150 mcg Lidocaine HCl (Xylocaine 2% Jelly) 1 applic TP Q12H PRN Last Admin: 11/20/17 21:00 Dose: 1 applic Potassium Chloride (Potassium Chloride Oral Liquid) 40 meq PO DAILY [facility] Last Admin: 11/24/17 09:13 Dose: 40 meq Potassium Phos/Sodium Phos (Phos-Nak Packet -) 1 packet PO BID [facility] Last Admin: 11/24/17 09:12 Dose: 1 packet Tramadol HCl (Ultram -) 50 mg PO Q8H PRN PRN Reason: PAIN LEVEL 7 - 10 Last Admin: 11/23/17 10:29 Dose: 50 mg Vancomycin HCl (Vancomycin Oral Solution) 125 mg PO Q6HPO [facility] Last Admin: 11/24/17 06:21 Dose: 125 mg Gen: awake, NAD HEENT: (-) Icterus Heart: RRR Lung: decreased breath sounds at the bases Abd: soft, nontender Ext: no edema Laboratory Results - last 24 hr 11/24/17 11/24/17 07:00 07:00 WBC 9.8 RBC 3.71 Hgb 9.6 L Hct 30.1 L MCV 81.3 MCH 25.9 MCHC 31.9 L RDW 17.1 H Plt Count 369 MPV 8.0 Neutrophils % 76.2 Lymphocytes % 13.6 Monocytes % 7.0 Eosinophils % 2.5 Basophils % 0.7 Sodium 138 Potassium 4.6 Chloride 109 H Carbon Dioxide 22 Anion Gap 7 L BUN 12 Creatinine 0.6 Creat Clearance w eGFR > 60 Random Glucose 90 Calcium 8.1 L Total Bilirubin 0.3 D AST 11 L ALT 19 Alkaline Phosphatase 90 Total Protein 5.6 L Albumin 2.3 L A/P Symptomatic Severe Hyponatremia improving Acute Kidney Injury + C diff r/o UTI CAD HTN Dementia - monitor/replete lytes per Renal - ABX per ID - PO as tolerated - Aspiration precautions - DVT prophylaxis Dr Machuca
--- NOTE | 2017-11-24 12:38 | PN ---
Progress Note, Physician Chief Complaint: Still green color diarrhe, rectal tube at place. History of Present Illness: 76 year old female with history of Dementia, frequent falls, hypothyroidism, Anemia and Left hip fracture(refused surgery) brought in from [facility] s/p fall/syncope and diarrhea. lab show sever Hyponatremia, Hypokalemia, dehydration with Diarrhea now improved. - Current Medication List Current Medications: Active Medications Acetaminophen (Tylenol -) 650 mg PO Q4H PRN PRN Reason: PAIN OR FEVER Ascorbic Acid (Vitamin C -) 500 mg PO TID COUNT INCLUDES [facility] Last Admin: 11/24/17 06:19 Dose: 500 mg Aspirin (Ecotrin -) 81 mg PO DAILY COUNT INCLUDES [facility] Last Admin: 11/24/17 09:12 Dose: 81 mg Ferrous Sulfate (Feosol -) 325 mg PO TIDCM COUNT INCLUDES [facility] Last Admin: 11/24/17 12:23 Dose: 325 mg Heparin Sodium (Porcine) (Heparin -) 5,000 unit SQ TID COUNT INCLUDES [facility] Last Admin: 11/24/17 06:31 Dose: 5,000 unit Sodium Chloride (Normal Saline -) 1,000 mls @ 60 mls/hr IV ASDIR COUNT INCLUDES [facility] Last Admin: 11/23/17 17:54 Dose: 60 mls/hr Levothyroxine Sodium 100 mcg/ (Levothyroxine Sodium 50 mcg) 150 mcg PO DAILY@ 0700 [facility] Last Admin: 11/24/17 06:19 Dose: 150 mcg Lidocaine HCl (Xylocaine 2% Jelly) 1 applic TP Q12H PRN Last Admin: 11/20/17 21:00 Dose: 1 applic Potassium Chloride (Potassium Chloride Oral Liquid) 40 meq PO DAILY [facility] Last Admin: 11/24/17 09:13 Dose: 40 meq Potassium Phos/Sodium Phos (Phos-Nak Packet -) 1 packet PO BID COUNT [facility]CLUD[facility] Last Admin: 11/24/17 09:12 Dose: 1 packet Vancomycin HCl (Vancomycin Oral Solution) 125 mg PO Q6HPO [facility]CLUD[facility] Last Admin: 11/24/17 12:23 Dose: 125 mg - Objective Vital Signs: Vital Signs Temperature 97.9 F 11/24/17 07:15 Pulse Rate 80 11/24/17 07:15 Respiratory Rate 18 11/24/17 07:15 Blood Pressure 113/65 11/24/17 07:15 O2 Sat by Pulse Oximetry (%) 98 11/23/17 21:00 Elderly F frail, not in distress, more alert, not in distress. HEENT: Mm moist, no anemia, PERRLA EOMI NECK; No JVD No Bruit CHEST: CTA B/L CVS: S1S2 R no m/g/r ABD: Rectal tube at place, no distention, non tender Bs + EXT: No edema, pulses + TONGER: no interval changes Labs: CBC, BMP 11/24/17 07:00 11/24/17 07:00 INR, PTT INR 1.00 (0.82-1.09) 11/15/17 10:20 Problem List - Problems (1) Acute metabolic encephalopathy Assessment/Plan: Due to dehydration and severe Hypernatremia, improved. Code(s): G93.41 - METABOLIC ENCEPHALOPATHY (2) Acute hyponatremia Assessment/Plan: Severe Hyponatremia with Dehydration improved. Code(s): E87.1 - HYPO-OSMOLALITY AND HYPONATREMIA (3) Hypothyroidism (4) Fracture of left hip Assessment/Plan: Opted for non operative treatment, pain control, no Wt bearing. Code(s): S72.002A - FRACTURE OF UNSP PART OF NECK OF LEFT FEMUR, INIT Qualifiers: Encounter type: subsequent encounter Fracture type: closed (5) Anemia Assessment/Plan: hOLD IRON FOR DIARRHEA Code(s): D64.9 - ANEMIA, UNSPECIFIED Qualifiers: Anemia type: unspecified type Qualified Code(s): D64.9 - Anemia, unspecified (6) Diarrhea Assessment/Plan: C Diff + Cont vancomycine Code(s): R19.7 - DIARRHEA, UNSPECIFIED Qualifiers: Diarrhea type: infectious Qualified Code(s): A09 - Infectious gastroenteritis and colitis, unspecified (7) EVARISTO (acute kidney injury) Assessment/Plan: Improved with Hydration Code(s): N17.9 - ACUTE KIDNEY FAILURE, UNSPECIFIED (8) Clostridium difficile diarrhea Assessment/Plan: cONT po VANCOMYCINE Code(s): A04.72 - ENTEROCOLITIS D/T CLOSTRIDIUM DIFFICILE, NOT SPCF RECUR
[2017-11-24] MEDS: SODIUM CHLORIDE 1,000 ML IV SCH (14:06)
--- NOTE | 2017-11-24 15:32 | PN ---
Progress Note, Physician History of Present Illness: Pt remains clinically the same. Still with liquid stools but no abdominal discomfort, fever. Alert, with no other complaints. - Current Medication List Current Medications: Active Medications Acetaminophen (Tylenol -) 650 mg PO Q4H PRN PRN Reason: PAIN OR FEVER Ascorbic Acid (Vitamin C -) 500 mg PO TID [facility] Last Admin: 11/24/17 14:06 Dose: 500 mg Aspirin (Ecotrin -) 81 mg PO DAILY [facility] Last Admin: 11/24/17 09:12 Dose: 81 mg Heparin Sodium (Porcine) (Heparin -) 5,000 unit SQ TID [facility] Last Admin: 11/24/17 14:06 Dose: 5,000 unit Sodium Chloride (Normal Saline -) 1,000 mls @ 60 mls/hr IV ASDIR [facility] Last Admin: 11/24/17 14:06 Dose: Not Given Levothyroxine Sodium 100 mcg/ (Levothyroxine Sodium 50 mcg) 150 mcg PO DAILY@ 0700 [facility] Last Admin: 11/24/17 06:19 Dose: 150 mcg Lidocaine HCl (Xylocaine 2% Jelly) 1 applic TP Q12H PRN Last Admin: 11/20/17 21:00 Dose: 1 applic Potassium Chloride (Potassium Chloride Oral Liquid) 40 meq PO DAILY [facility] Last Admin: 11/24/17 09:13 Dose: 40 meq Potassium Phos/Sodium Phos (Phos-Nak Packet -) 1 packet PO BID [facility] Last Admin: 11/24/17 09:12 Dose: 1 packet Vancomycin HCl (Vancomycin Oral Solution) 125 mg PO Q6HPO [facility] Last Admin: 11/24/17 12:23 Dose: 125 mg - Objective Vital Signs: Vital Signs Temperature 98.7 F 11/24/17 14:52 Pulse Rate 107 H 11/24/17 14:52 Respiratory Rate 18 11/24/17 14:52 Blood Pressure 113/69 11/24/17 14:52 O2 Sat by Pulse Oximetry (%) 98 11/23/17 21:00 Constitutional: Yes: No Distress, Calm Cardiovascular: Yes: WNL Respiratory: Yes: Regular Gastrointestinal: Yes: Normal Bowel Sounds, Soft ...Rectal Exam: Yes: Other (liquid stool in fecal bag) Edema: No Neurological: Yes: Alert Labs: CBC, BMP 11/24/17 07:00 11/24/17 07:00 INR, PTT INR 1.00 (0.82-1.09) 11/15/17 10:20 Problem List - Problems (1) EVARISTO (acute kidney injury) Code(s): N17.9 - ACUTE KIDNEY FAILURE, UNSPECIFIED (2) Acute hypokalemia Code(s): E87.6 - HYPOKALEMIA (3) Acute hyponatremia Code(s): E87.1 - HYPO-OSMOLALITY AND HYPONATREMIA (4) Diarrhea Code(s): R19.7 - DIARRHEA, UNSPECIFIED Qualifiers: Diarrhea type: infectious Qualified Code(s): A09 - Infectious gastroenteritis and colitis, unspecified Assessment/Plan Diarrhea C. difficile Ag +/ Toxin negative -- afebrile, no leukocytosis -- cont vancomycin po -- replace electrolytes as needed
[2017-11-25] MEDS: VANCOMYCIN 250 MG/5 ML ORAL SOLUTION PO SCH ×4 (00:35→17:44)
[2017-11-25] MEDS: SODIUM CHLORIDE 1,000 ML IV SCH ×2 (01:05→20:50)
[2017-11-25] MEDS ORDERED: LEVOTHYROXINE NA 50 MCG TABLET (FP) ONE (06:08)
[2017-11-25] MEDS ORDERED: LEVOTHYROXINE NA 100 MCG TABLET (FP) ONE (06:08)
[2017-11-25] MEDS: LEVOTHYROXINE 100 MCG, LEVOTHYROXINE 50 MCG PO SCH (06:11)
[2017-11-25] MEDS: ASCORBIC ACID 500 MG TABLET (FP) PO SCH ×3 (06:12→21:26)
[2017-11-25 08:18] LABS: BASO % 0.6 % (0-2.0); HEMATOCRIT 29.4 % (32.4-45.2); HEMOGLOBIN 9.4 GM/dL (10.7-15.3); LYMPH % 10.4 % (8-40); MCH 25.9 pg (25.7-33.7); MCHC 32.1 g/dl (32.0-36.0); MEAN CELL VOLUME 80.5 fl (80-96); MEAN PLT VOLUME 8.2 fl (7.5-11.1); MONO % 7.5 % (3.8-10.2); NEUT % 79.5 % (42.8-82.8); PLATELET COUNT 355 K/MM3 (134-434); RBC 3.65 M/mm3 (3.60-5.2); RDW 17.1 % (11.6-15.6); WHITE BLOOD COUNT 11.4 K/mm3 (4.0-10.0)
[2017-11-25 08:26] LABS: CHLORIDE 107 mmol/L (98-107); POTASSIUM 4.4 mmol/L (3.5-5.1); SODIUM 138 mmol/L (136-145)
[2017-11-25 08:31] LABS: ANION GAP 9 (8-16); BLOOD UREA NITROGEN 17 mg/dL (7-18); CALCIUM 8.1 mg/dL (8.5-10.1); CO2 22 mmol/L (21-32); CREATININE 0.6 mg/dL (0.55-1.02); GLUCOSE,RANDOM 83 mg/dL (74-106)
--- NOTE | 2017-11-25 09:09 | PN ---
Progress Note, Physician Chief Complaint: Pt laying in bed,in no acute distress. Pt reports she wants to go back to SNF. Pt continues to have liquid diarrhea through flexiseal. Pt denies any chest pain, sob, n/v, or unilateral weakness. - Current Medication List Current Medications: Active Medications Acetaminophen (Tylenol -) 650 mg PO Q4H PRN PRN Reason: PAIN OR FEVER Ascorbic Acid (Vitamin C -) 500 mg PO TID [facility] Last Admin: 11/25/17 06:12 Dose: 500 mg Aspirin (Ecotrin -) 81 mg PO DAILY [facility] Last Admin: 11/24/17 09:12 Dose: 81 mg Sodium Chloride (Normal Saline -) 1,000 mls @ 60 mls/hr IV ASDIR [facility] Last Admin: 11/25/17 01:05 Dose: 60 mls/hr Levothyroxine Sodium 100 mcg/ (Levothyroxine Sodium 50 mcg) 150 mcg PO DAILY@ 0700 [facility] Last Admin: 11/25/17 06:11 Dose: 150 mcg Lidocaine HCl (Xylocaine 2% Jelly) 1 applic TP Q12H PRN Last Admin: 11/20/17 21:00 Dose: 1 applic Potassium Chloride (Potassium Chloride Oral Liquid) 40 meq PO DAILY [facility] Last Admin: 11/24/17 09:13 Dose: 40 meq Potassium Phos/Sodium Phos (Phos-Nak Packet -) 1 packet PO BID [facility] Last Admin: 11/24/17 22:59 Dose: 1 packet Vancomycin HCl (Vancomycin Oral Solution) 125 mg PO Q6HPO [facility] Last Admin: 11/25/17 06:13 Dose: 125 mg - Objective Vital Signs: Vital Signs Temperature 97.3 F L 11/25/17 07:45 Pulse Rate 93 H 11/25/17 07:45 Respiratory Rate 20 11/25/17 07:45 Blood Pressure 96/59 11/25/17 07:45 O2 Sat by Pulse Oximetry (%) 98 11/23/17 21:00 Constitutional: Yes: No Distress, Calm Cardiovascular: Yes: WNL, Regular Rate and Rhythm. No: Gallop, Murmur, Rub Respiratory: Yes: WNL, Regular, CTA Bilaterally. No: Rales, Rhonchi, SOB, Tachypnea, Wheezes Gastrointestinal: Yes: WNL, Normal Bowel Sounds, Soft Extremities: Yes: WNL Edema: No Neurological: Yes: WNL, Alert Psychiatric: Yes: WNL, Alert Labs: CBC, BMP 11/25/17 06:00 11/25/17 06:00 INR, PTT INR 1.00 (0.82-1.09) 11/15/17 10:20 Problem List - Problems (1) Acute hyponatremia Code(s): E87.1 - HYPO-OSMOLALITY AND HYPONATREMIA (2) Acute metabolic encephalopathy Code(s): G93.41 - METABOLIC ENCEPHALOPATHY (3) Acute hypokalemia Code(s): E87.6 - HYPOKALEMIA (4) Acute kidney failure Code(s): N17.9 - ACUTE KIDNEY FAILURE, UNSPECIFIED (5) Diarrhea Code(s): R19.7 - DIARRHEA, UNSPECIFIED Qualifiers: Diarrhea type: infectious Qualified Code(s): A09 - Infectious gastroenteritis and colitis, unspecified (6) Hypotension Code(s): I95.9 - HYPOTENSION, UNSPECIFIED (7) Fall Code(s): W19.XXXA - UNSPECIFIED FALL, INITIAL ENCOUNTER (8) Hypothyroidism Code(s): E03.9 - HYPOTHYROIDISM, UNSPECIFIED (9) Anemia Code(s): D64.9 - ANEMIA, UNSPECIFIED Qualifiers: Anemia type: unspecified type Qualified Code(s): D64.9 - Anemia, unspecified (10) Fracture of left hip Code(s): S72.002A - FRACTURE OF UNSP PART OF NECK OF LEFT FEMUR, INIT Qualifiers: Encounter type: subsequent encounter Fracture type: closed (11) Dementia Code(s): F03.90 - UNSPECIFIED DEMENTIA WITHOUT BEHAVIORAL DISTURBANCE (12) Chronic left hip pain Code(s): M25.552 - PAIN IN LEFT HIP; G89.29 - OTHER CHRONIC PAIN (13) Clostridium difficile diarrhea Code(s): A04.72 - ENTEROCOLITIS D/T CLOSTRIDIUM DIFFICILE, NOT SPCF RECUR Assessment/Plan (1) Acute hyponatremia Assessment/Plan: Resolved Code(s): E87.1 - HYPO-OSMOLALITY AND HYPONATREMIA (2) Acute metabolic encephalopathy Assessment/Plan: Resolved. pt back at baseline Code(s): G93.41 - METABOLIC ENCEPHALOPATHY (3) Acute hypokalemia Assessment/Plan: Resolved, potassium chloride 40meq po daily Continue to monitor labs Code(s): E87.6 - HYPOKALEMIA (4) Acute kidney failure Assessment/Plan: Resolved Code(s): N17.9 - ACUTE KIDNEY FAILURE, UNSPECIFIED (5) Diarrhea Assessment/Plan: Cdiff antigen positive, toxin negative. Pt still having diarrhea. d/c flexiseal Continue PO Vanco per ID Code(s): R19.7 - DIARRHEA, UNSPECIFIED (6) Hypotension Assessment/Plan: Improved Continue IVF hydration since pt still having diarrhea Code(s): I95.9 - HYPOTENSION, UNSPECIFIED (7) Fall Assessment/Plan: s/p fall at SNF, xrays, head CT negative, chronic fracture of left hip( unchanged from previous CT) Continue PT as tolerated, pt having significant pain with ambulation May benefit from administering tramadol 30 mins prior to PT session Code(s): W19.XXXA - UNSPECIFIED FALL, INITIAL ENCOUNTER (8) Hypothyroidism Assessment/Plan: Continue Levothyroxine Code(s): E03.9 - HYPOTHYROIDISM, UNSPECIFIED (9) Anemia Assessment/Plan: hg/hct stable Continue Ferrous sulfate will continue to monitor Code(s): D64.9 - ANEMIA, UNSPECIFIED Qualifiers: Anemia type: unspecified type Qualified Code(s): D64.9 - Anemia, unspecified (10) Fracture of left hip Assessment/Plan: unchanged from previous CT in September Pt had refused surgery Continue PT as tolerated Code(s): S72.002A - FRACTURE OF UNSP PART OF NECK OF LEFT FEMUR, INIT Qualifiers: Encounter type: subsequent encounter Fracture type: closed (11) Dementia Assessment/Plan: At baseline. Continue home meds. Monitor for changes (12) Chronic Left Hip Pain Assessment/Plan: secondary to old closed fracture, no intervention taken at the time Continue Tramadol PRN for adequate pain control especially before PT Dispo: SNF when diarrhea resolves
[2017-11-25] MEDS: NAPH,MB-DB/K PH,MBDB POWDER PACKET PO SCH ×2 (09:52→21:26)
[2017-11-25] MEDS: POTASSIUM CHLORIDE ORAL LIQUID 20 MEQ/15 ML PO SCH (09:52)
[2017-11-25] MEDS: ASPIRIN COATED 81 MG TABLET.EC PO SCH (09:52)
[2017-11-25 11:40] LABS: MAGNESIUM 1.7 mg/dL (1.8-2.4)
--- NOTE | 2017-11-25 12:21 | PN ---
Progress Note, Physician History of Present Illness: stable continues to have dirrhoea - Current Medication List Current Medications: Active Medications Acetaminophen (Tylenol -) 650 mg PO Q4H PRN PRN Reason: PAIN OR FEVER Ascorbic Acid (Vitamin C -) 500 mg PO TID [facility] Last Admin: 11/25/17 06:12 Dose: 500 mg Aspirin (Ecotrin -) 81 mg PO DAILY [facility] Last Admin: 11/25/17 09:52 Dose: 81 mg Sodium Chloride (Normal Saline -) 1,000 mls @ 60 mls/hr IV ASDIR [facility] Last Admin: 11/25/17 01:05 Dose: 60 mls/hr Lactobacillus Acidophilus (Bacid -) 1 tab PO DAILY [facility] Levothyroxine Sodium 100 mcg/ (Levothyroxine Sodium 50 mcg) 150 mcg PO DAILY@ 0700 [facility] Last Admin: 11/25/17 06:11 Dose: 150 mcg Lidocaine HCl (Xylocaine 2% Jelly) 1 applic TP Q12H PRN Last Admin: 11/20/17 21:00 Dose: 1 applic Potassium Chloride (Potassium Chloride Oral Liquid) 40 meq PO DAILY [facility] Last Admin: 11/25/17 09:52 Dose: 40 meq Potassium Phos/Sodium Phos (Phos-Nak Packet -) 1 packet PO BID [facility] Last Admin: 11/25/17 09:52 Dose: 1 packet Vancomycin HCl (Vancomycin Oral Solution) 125 mg PO Q6HPO [facility] Last Admin: 11/25/17 12:05 Dose: 125 mg - Objective Vital Signs: Vital Signs Temperature 97.3 F L 11/25/17 07:45 Pulse Rate 93 H 11/25/17 07:45 Respiratory Rate 20 11/25/17 07:45 Blood Pressure 96/59 11/25/17 07:45 O2 Sat by Pulse Oximetry (%) 98 11/23/17 21:00 Constitutional: Yes: No Distress, Calm, Thin Cardiovascular: Yes: Regular Rate and Rhythm Respiratory: Yes: Regular, CTA Bilaterally Gastrointestinal: Yes: Normal Bowel Sounds, Soft Musculoskeletal: Yes: WNL Extremities: Yes: WNL Neurological: Yes: Alert, Oriented Psychiatric: Yes: Alert Labs: CBC, BMP 11/25/17 06:00 11/25/17 06:00 INR, PTT INR 1.00 (0.82-1.09) 11/15/17 10:20 Assessment/Plan Problem List - Problems (1) Acute hyponatremia Code(s): E87.1 - HYPO-OSMOLALITY AND HYPONATREMIA (2) Acute metabolic encephalopathy Code(s): G93.41 - METABOLIC ENCEPHALOPATHY (3) Acute hypokalemia Code(s): E87.6 - HYPOKALEMIA (4) Acute kidney failurey Code(s): N17.9 - ACUTE KIDNEY FAILURE, UNSPECIFIED (5) Diarrhea Code(s): R19.7 - DIARRHEA, UNSPECIFIED (6) Hypotension Code(s): I95.9 - HYPOTENSION, UNSPECIFIED (7) Fall Code(s): W19.XXXA - UNSPECIFIED FALL, INITIAL ENCOUNTER (8) Hypothyroidism Code(s): E03.9 - HYPOTHYROIDISM, UNSPECIFIED (9) Anemia Code(s): D64.9 - ANEMIA, UNSPECIFIED Qualifiers: Anemia type: unspecified type Qualified Code(s): D64.9 - Anemia, unspecified (10) Fracture of left hip Code(s): S72.002A - FRACTURE OF UNSP PART OF NECK OF LEFT FEMUR, INIT Qualifiers: Encounter type: subsequent encounter Fracture type: closed 11 sepsis plan continue oral vanco continue monitoring
[2017-11-25] MEDS ORDERED: LACTOBACILLUS ACIDOPHILUS 1 EACH TAB (FP) PO ONE ×2 (12:22→15:15)
[2017-11-25] MEDS ORDERED: MAGNESIUM SULF 50% (8.12 MEQ/2 ML-1 GM VIAL) IVPB ONE (12:49)
[2017-11-25] MEDS ORDERED: MAGNESIUM 1GM/D5W - 1 GM/100 ML IVPB IVPB SCH (13:00)
[2017-11-25] MEDS ORDERED: MAGNESIUM SULFATE IN WATER 2 GM/50 ML IVPB IVPB ONE (13:04)
[2017-11-26] MEDS: VANCOMYCIN 250 MG/5 ML ORAL SOLUTION PO SCH ×4 (01:54→18:57)
[2017-11-26] MEDS ORDERED: LEVOTHYROXINE NA 100 MCG TABLET (FP) ONE (05:58)
[2017-11-26] MEDS ORDERED: LEVOTHYROXINE NA 50 MCG TABLET (FP) ONE (05:58)
[2017-11-26] MEDS: ASCORBIC ACID 500 MG TABLET (FP) PO SCH ×3 (06:40→21:06)
[2017-11-26] MEDS: LEVOTHYROXINE 100 MCG, LEVOTHYROXINE 50 MCG PO SCH (06:40)
[2017-11-26 08:46] LABS: BASO % 0.5 % (0-2.0); EOS % 3.7 % (0-4.5); HEMATOCRIT 28.9 % (32.4-45.2); HEMOGLOBIN 9.3 GM/dL (10.7-15.3); LYMPH % 13.6 % (8-40); MCHC 32.2 g/dl (32.0-36.0); MEAN CELL VOLUME 80.8 fl (80-96); MEAN PLT VOLUME 8.3 fl (7.5-11.1); MONO % 7.9 % (3.8-10.2); NEUT % 74.3 % (42.8-82.8); PLATELET COUNT 349 K/MM3 (134-434); RBC 3.58 M/mm3 (3.60-5.2); RDW 17.3 % (11.6-15.6); WHITE BLOOD COUNT 10.2 K/mm3 (4.0-10.0)
[2017-11-26 09:31] LABS: CHLORIDE 105 mmol/L (98-107); POTASSIUM 4.4 mmol/L (3.5-5.1); SODIUM 137 mmol/L (136-145)
[2017-11-26 09:38] LABS: ANION GAP 10 (8-16); BLOOD UREA NITROGEN 21 mg/dL (7-18); CALCIUM 8.3 mg/dL (8.5-10.1); CO2 22 mmol/L (21-32); CREATININE 0.6 mg/dL (0.55-1.02); GLUCOSE,RANDOM 86 mg/dL (74-106); MAGNESIUM 2.3 mg/dL (1.8-2.4); PHOSPHOROUS 3.3 mg/dL (2.5-4.9)
[2017-11-26] MEDS: POTASSIUM CHLORIDE ORAL LIQUID 20 MEQ/15 ML PO SCH (10:25)
[2017-11-26] MEDS: ASPIRIN COATED 81 MG TABLET.EC PO SCH (10:26)
[2017-11-26] MEDS: LACTOBACILLUS ACIDOPHILUS 1 EACH TAB (FP) PO SCH (10:26)
[2017-11-26] MEDS: SODIUM CHLORIDE 1,000 ML IV SCH ×2 (10:26→13:08)
[2017-11-26] MEDS: NAPH,MB-DB/K PH,MBDB POWDER PACKET PO SCH ×2 (10:26→21:08)
--- NOTE | 2017-11-26 11:10 | PN ---
Progress Note, Physician Chief Complaint: Pt laying in bed,in no acute distress. Diarrhea less frequent and semi form in consistency per brass burnisher. Pt denies any chest pain, sob, n/v, or unilateral weakness. - Current Medication List Current Medications: Active Medications Acetaminophen (Tylenol -) 650 mg PO Q4H PRN PRN Reason: PAIN OR FEVER Ascorbic Acid (Vitamin C -) 500 mg PO TID [facility] Last Admin: 11/26/17 06:40 Dose: 500 mg Aspirin (Ecotrin -) 81 mg PO DAILY [facility] Last Admin: 11/26/17 10:26 Dose: 81 mg Sodium Chloride (Normal Saline -) 1,000 mls @ 60 mls/hr IV ASDIR [facility] Last Admin: 11/26/17 10:26 Dose: 60 mls/hr Lactobacillus Acidophilus (Bacid -) 1 tab PO DAILY [facility] Last Admin: 11/26/17 10:26 Dose: 1 tab Levothyroxine Sodium 100 mcg/ (Levothyroxine Sodium 50 mcg) 150 mcg PO DAILY@ 0700 [facility] Last Admin: 11/26/17 06:40 Dose: 150 mcg Lidocaine HCl (Xylocaine 2% Jelly) 1 applic TP Q12H PRN Last Admin: 11/20/17 21:00 Dose: 1 applic Potassium Chloride (Potassium Chloride Oral Liquid) 40 meq PO DAILY [facility] Last Admin: 11/26/17 10:25 Dose: 40 meq Potassium Phos/Sodium Phos (Phos-Nak Packet -) 1 packet PO BID [facility] Last Admin: 11/26/17 10:26 Dose: 1 packet Vancomycin HCl (Vancomycin Oral Solution) 125 mg PO Q6HPO [facility] Last Admin: 11/26/17 06:40 Dose: 125 mg - Objective Vital Signs: Vital Signs Temperature 98.7 F 11/26/17 05:39 Pulse Rate 85 11/26/17 05:39 Respiratory Rate 20 11/26/17 05:39 Blood Pressure 101/58 11/26/17 05:39 O2 Sat by Pulse Oximetry (%) 96 11/25/17 21:00 Constitutional: Yes: No Distress, Calm Cardiovascular: Yes: WNL, Regular Rate and Rhythm. No: Gallop, Murmur, Rub Respiratory: Yes: WNL, Regular, CTA Bilaterally, Diminished Gastrointestinal: Yes: WNL, Normal Bowel Sounds, Soft. No: Distention Extremities: Yes: WNL Edema: No Neurological: Yes: WNL, Alert Psychiatric: Yes: WNL, Alert Labs: CBC, BMP 11/26/17 07:30 11/26/17 07:30 INR, PTT INR 1.00 (0.82-1.09) 11/15/17 10:20 Problem List - Problems (1) Clostridium difficile diarrhea Code(s): A04.72 - ENTEROCOLITIS D/T CLOSTRIDIUM DIFFICILE, NOT SPCF RECUR (2) Acute hyponatremia Code(s): E87.1 - HYPO-OSMOLALITY AND HYPONATREMIA (3) Acute metabolic encephalopathy Code(s): G93.41 - METABOLIC ENCEPHALOPATHY (4) Acute hypokalemia Code(s): E87.6 - HYPOKALEMIA (5) Acute kidney failure Code(s): N17.9 - ACUTE KIDNEY FAILURE, UNSPECIFIED (6) Diarrhea Code(s): R19.7 - DIARRHEA, UNSPECIFIED Qualifiers: Diarrhea type: infectious Qualified Code(s): A09 - Infectious gastroenteritis and colitis, unspecified (7) Hypotension Code(s): I95.9 - HYPOTENSION, UNSPECIFIED (8) Fall Code(s): W19.XXXA - UNSPECIFIED FALL, INITIAL ENCOUNTER (9) Hypothyroidism Code(s): E03.9 - HYPOTHYROIDISM, UNSPECIFIED (10) Anemia Code(s): D64.9 - ANEMIA, UNSPECIFIED Qualifiers: Anemia type: unspecified type Qualified Code(s): D64.9 - Anemia, unspecified (11) Fracture of left hip Code(s): S72.002A - FRACTURE OF UNSP PART OF NECK OF LEFT FEMUR, INIT Qualifiers: Encounter type: subsequent encounter Fracture type: closed (12) Dementia Code(s): F03.90 - UNSPECIFIED DEMENTIA WITHOUT BEHAVIORAL DISTURBANCE (13) Chronic left hip pain Code(s): M25.552 - PAIN IN LEFT HIP; G89.29 - OTHER CHRONIC PAIN Assessment/Plan (1)Clostridium difficile diarrhea Assessment/Plan: improving, less frequent and semi form consistency Continue PO Vanco per ID (2) Acute metabolic encephalopathy Assessment/Plan: Resolved. pt back at baseline Code(s): G93.41 - METABOLIC ENCEPHALOPATHY (3) Acute hypokalemia Assessment/Plan: Resolved, potassium chloride 40meq po daily Continue to monitor labs Code(s): E87.6 - HYPOKALEMIA (4) Acute kidney failure Assessment/Plan: Resolved Code(s): N17.9 - ACUTE KIDNEY FAILURE, UNSPECIFIED (5) Acute hyponatremia Assessment/Plan: Resolved Code(s): E87.1 - HYPO-OSMOLALITY AND HYPONATREMIA (6) Hypotension Assessment/Plan: Improved Continue IVF hydration since pt still having diarrhea Code(s): I95.9 - HYPOTENSION, UNSPECIFIED (7) Fall Assessment/Plan: s/p fall at SNF, xrays, head CT negative, chronic fracture of left hip( unchanged from previous CT) Continue PT as tolerated Tramadol prn for pain control Code(s): W19.XXXA - UNSPECIFIED FALL, INITIAL ENCOUNTER (8) Hypothyroidism Assessment/Plan: Continue Levothyroxine Code(s): E03.9 - HYPOTHYROIDISM, UNSPECIFIED (9) Anemia Assessment/Plan: hg/hct stable Continue Ferrous sulfate will continue to monitor Code(s): D64.9 - ANEMIA, UNSPECIFIED Qualifiers: Anemia type: unspecified type Qualified Code(s): D64.9 - Anemia, unspecified (10) Fracture of left hip Assessment/Plan: unchanged from previous CT in September Pt had refused surgery Continue PT as tolerated Code(s): S72.002A - FRACTURE OF UNSP PART OF NECK OF LEFT FEMUR, INIT Qualifiers: Encounter type: subsequent encounter Fracture type: closed (11) Dementia Assessment/Plan: At baseline. Continue home meds. Monitor for changes (12) Chronic Left Hip Pain Assessment/Plan: secondary to old closed fracture, no intervention taken at the time Continue Tramadol PRN for adequate pain control Dispo: SNF when diarrhea resolves
--- NOTE | 2017-11-26 13:43 | PN ---
Progress Note, Physician History of Present Illness: dirrhoea improving no new issues patient stable - Current Medication List Current Medications: Active Medications Acetaminophen (Tylenol -) 650 mg PO Q4H PRN PRN Reason: PAIN OR FEVER Ascorbic Acid (Vitamin C -) 500 mg PO TID [facility] Last Admin: 11/26/17 06:40 Dose: 500 mg Aspirin (Ecotrin -) 81 mg PO DAILY [facility] Last Admin: 11/26/17 10:26 Dose: 81 mg Sodium Chloride (Normal Saline -) 1,000 mls @ 60 mls/hr IV ASDIR [facility] Last Admin: 11/26/17 13:08 Dose: 60 mls/hr Lactobacillus Acidophilus (Bacid -) 1 tab PO DAILY [facility] Last Admin: 11/26/17 10:26 Dose: 1 tab Levothyroxine Sodium 100 mcg/ (Levothyroxine Sodium 50 mcg) 150 mcg PO DAILY@ 0700 [facility] Last Admin: 11/26/17 06:40 Dose: 150 mcg Lidocaine HCl (Xylocaine 2% Jelly) 1 applic TP Q12H PRN Last Admin: 11/20/17 21:00 Dose: 1 applic Potassium Chloride (Potassium Chloride Oral Liquid) 40 meq PO DAILY [facility] Last Admin: 11/26/17 10:25 Dose: 40 meq Potassium Phos/Sodium Phos (Phos-Nak Packet -) 1 packet PO BID [facility] Last Admin: 11/26/17 10:26 Dose: 1 packet Vancomycin HCl (Vancomycin Oral Solution) 125 mg PO Q6HPO [facility] Last Admin: 11/26/17 13:07 Dose: 125 mg - Objective Vital Signs: Vital Signs Temperature 97.5 F L 11/26/17 10:00 Pulse Rate 93 H 11/26/17 10:00 Respiratory Rate 18 11/26/17 10:00 Blood Pressure 105/48 11/26/17 10:00 O2 Sat by Pulse Oximetry (%) 96 11/25/17 21:00 Constitutional: Yes: No Distress, Calm Cardiovascular: Yes: Regular Rate and Rhythm Respiratory: Yes: Regular, CTA Bilaterally Gastrointestinal: Yes: Normal Bowel Sounds, Soft Musculoskeletal: Yes: WNL Extremities: Yes: WNL Neurological: Yes: Alert, Oriented Psychiatric: Yes: Alert, Oriented Labs: CBC, BMP 11/26/17 07:30 11/26/17 07:30 INR, PTT INR 1.00 (0.82-1.09) 11/15/17 10:20 Assessment/Plan Problem List - Problems (1) Acute hyponatremia Code(s): E87.1 - HYPO-OSMOLALITY AND HYPONATREMIA (2) Acute metabolic encephalopathy Code(s): G93.41 - METABOLIC ENCEPHALOPATHY (3) Acute hypokalemia Code(s): E87.6 - HYPOKALEMIA (4) Acute kidney failurey Code(s): N17.9 - ACUTE KIDNEY FAILURE, UNSPECIFIED (5) Diarrhea Code(s): R19.7 - DIARRHEA, UNSPECIFIED (6) Hypotension Code(s): I95.9 - HYPOTENSION, UNSPECIFIED (7) Fall Code(s): W19.XXXA - UNSPECIFIED FALL, INITIAL ENCOUNTER (8) Hypothyroidism Code(s): E03.9 - HYPOTHYROIDISM, UNSPECIFIED (9) Anemia Code(s): D64.9 - ANEMIA, UNSPECIFIED Qualifiers: Anemia type: unspecified type Qualified Code(s): D64.9 - Anemia, unspecified (10) Fracture of left hip Code(s): S72.002A - FRACTURE OF UNSP PART OF NECK OF LEFT FEMUR, INIT Qualifiers: Encounter type: subsequent encounter Fracture type: closed 11 sepsis plan continue oral vanco continue monitoring hydration rest as per primary team
[2017-11-26] MEDS ORDERED: PT OWN MED DRAWER 7, Y5N ONE (16:00)
[2017-11-27] MEDS: VANCOMYCIN 250 MG/5 ML ORAL SOLUTION PO SCH ×3 (06:36→12:40)
[2017-11-27] MEDS: LEVOTHYROXINE 100 MCG, LEVOTHYROXINE 50 MCG PO SCH (06:36)
[2017-11-27] MEDS: ASCORBIC ACID 500 MG TABLET (FP) PO SCH ×2 (06:36→16:01)
[2017-11-27 08:23] LABS: BASO % 0.5 % (0-2.0); EOS % 2.9 % (0-4.5); HEMATOCRIT 30.7 % (32.4-45.2); HEMOGLOBIN 9.8 GM/dL (10.7-15.3); LYMPH % 13.9 % (8-40); MCH 25.9 pg (25.7-33.7); MEAN CELL VOLUME 80.9 fl (80-96); MEAN PLT VOLUME 7.9 fl (7.5-11.1); MONO % 9.1 % (3.8-10.2); NEUT % 73.6 % (42.8-82.8); PLATELET COUNT 358 K/MM3 (134-434); RDW 17.2 % (11.6-15.6); WHITE BLOOD COUNT 9.5 K/mm3 (4.0-10.0)
[2017-11-27 08:29] LABS: ANION GAP 8 (8-16); BLOOD UREA NITROGEN 20 mg/dL (7-18); CALCIUM 8.3 mg/dL (8.5-10.1); CHLORIDE 105 mmol/L (98-107); CO2 24 mmol/L (21-32); CREATININE 0.6 mg/dL (0.55-1.02); GLUCOSE,RANDOM 89 mg/dL (74-106); MAGNESIUM 1.8 mg/dL (1.8-2.4); PHOSPHOROUS 3.8 mg/dL (2.5-4.9); POTASSIUM 4.4 mmol/L (3.5-5.1); SODIUM 137 mmol/L (136-145)
[2017-11-27] MEDS ORDERED: MAGNESIUM SULF 50% (8.12 MEQ/2 ML-1 GM VIAL) IVPB ONE (09:16)
[2017-11-27] MEDS ORDERED: MAGNESIUM 1GM/D5W - 1 GM/100 ML IVPB IVPB ONE (10:00)
[2017-11-27] MEDS ORDERED: PT OWN MED DRAWER 7, Y5N ONE (10:16)
[2017-11-27] MEDS: LACTOBACILLUS ACIDOPHILUS 1 EACH TAB (FP) PO SCH (10:53)
[2017-11-27] MEDS: POTASSIUM CHLORIDE ORAL LIQUID 20 MEQ/15 ML PO SCH (10:53)
[2017-11-27] MEDS: ASPIRIN COATED 81 MG TABLET.EC PO SCH (10:54)
[2017-11-27] MEDS: NAPH,MB-DB/K PH,MBDB POWDER PACKET PO SCH (10:54)
--- NOTE | 2017-11-27 10:54 | DS ---
Physical Examination Vital Signs: Vital Signs Temperature 98.4 F 11/27/17 06:24 Pulse Rate 94 H 11/27/17 06:24 Respiratory Rate 20 11/27/17 06:24 Blood Pressure 113/64 11/27/17 06:24 O2 Sat by Pulse Oximetry (%) 96 11/26/17 21:00 Findings/Remarks: reports she is doing well today. Diarrhea a lot less. 4bms>24hrs. Otherwise, she is doing great. Constitutional: Yes: No Distress, Calm Cardiovascular: Yes: WNL, Regular Rate and Rhythm. No: Gallop, Murmur, Rub Respiratory: Yes: WNL, Regular, CTA Bilaterally, Diminished. No: Rales, Rhonchi , SOB, Tachypnea Gastrointestinal: Yes: WNL, Normal Bowel Sounds, Soft. No: Distention Extremities: Yes: WNL Edema: No Neurological: Yes: WNL, Alert Psychiatric: Yes: WNL Labs: CBC, BMP 11/27/17 06:30 11/27/17 06:30 Discharge Summary Reason For Visit: HYPONATREMIA (HISTORY OF C-DIFF) Current Active Problems EVARISTO (acute kidney injury) (Acute) Acute hypokalemia (Acute) Acute hyponatremia (Acute) Acute metabolic encephalopathy (Acute) Chronic left hip pain (Acute) Clostridium difficile diarrhea (Acute) Dementia (Acute) Diarrhea (Acute) Hyponatremia (Acute) Hypotension (Acute) Hypothyroidism (Acute) Hospital Course: is a pleasant 76 year old female with pmh of CKD, Dementia, frequent falls, hypothyroidism, Anemia and Left hip fracture(conservative management) brought in from SNF with AMS, diarrhea, and syncope/fall. She was found to have severe hyponatremia related to dehydration and cdiff colitis during admission. Hypernatremia was successfully corrected without complications. With adequate hydration and electrolyte repletion, her mental status returned back to baseline. Head CT/further imaging work up did not reveal any concerning findings other than previous chronic left hip fracture. has been working well with PT. Her LOS was prolonged due to cdiff colitis for which she is being treated with Oral Vancomycin. Her hostpial stay otherwise has been uneventful. Condition: Fair - Instructions Diet, Activity, Other Instructions: resume prev diet, activity as tolerated. PO Vancomycin 250mg qid FOR 4 MORE DAYS to complete 14 day course. Referrals: Francisco Ellis MD [Primary Care Provider] - Disposition: ALF FACILITY - Home Medications Comprehensive Discharge Medication List: Ambulatory Orders Aa/Hydrolyzed Collagen, Whey [Lps Neutral Flavor Liquid] 30 ml PO BID 11/15/17 Acetaminophen [Tylenol] 650 mg PO Q6H PRN 11/15/17 Ascorbic Acid [Vitamin C -] 500 mg PO TID 11/15/17 Aspirin [Aspirin EC] 81 mg PO DAILY 11/15/17 Bacitracin - [Bacitracin Topical Ointment -] 1 applic TP DAILY 11/15/17 Docusate Sodium [Colace -] 300 mg PO HS 11/15/17 Ferrous Sulfate [Feosol] 325 mg PO TID 11/15/17 Heparin - 5,000 unit SQ BID 11/15/17 Lactobacillus Acidophilus [Acidophilus] 1 each PO BID 11/15/17 Levothyroxine Sodium [Levoxyl] 150 mcg PO DAILY 11/15/17 Omeprazole Magnesium [Prilosec Otc] 20 mg PO DAILY 11/15/17 Potassium Chloride [K-Dur -] 40 meq PO DAILY 11/15/17 Quetiapine Fumarate [Seroquel -] 50 mg PO BID 11/15/17 Sennosides [Senna] 2 tab PO DAILY 11/15/17 Trazodone HCl 25 mg PO HS 11/15/17 VANCOMYCIN PO 250MG QID X 4 DAYS
[2017-11-27 13:31] VITALS: BP 118/70; PULSE 84; TEMP 98.2
--- NOTE | 2017-11-27 13:35 | PN ---
Progress Note, Physician History of Present Illness: stable no new issues - Current Medication List Current Medications: Active Medications Acetaminophen (Tylenol -) 650 mg PO Q4H PRN PRN Reason: PAIN OR FEVER Ascorbic Acid (Vitamin C -) 500 mg PO TID [facility] Last Admin: 11/27/17 06:36 Dose: 500 mg Aspirin (Ecotrin -) 81 mg PO DAILY [facility] Last Admin: 11/27/17 10:54 Dose: 81 mg Sodium Chloride (Normal Saline -) 1,000 mls @ 60 mls/hr IV ASDIR [facility] Last Admin: 11/26/17 13:08 Dose: 60 mls/hr Lactobacillus Acidophilus (Bacid -) 1 tab PO DAILY [facility] Last Admin: 11/27/17 10:53 Dose: 1 tab Levothyroxine Sodium 100 mcg/ (Levothyroxine Sodium 50 mcg) 150 mcg PO DAILY@ 0700 [facility] Last Admin: 11/27/17 06:36 Dose: 150 mcg Lidocaine HCl (Xylocaine 2% Jelly) 1 applic TP Q12H PRN Last Admin: 11/20/17 21:00 Dose: 1 applic Potassium Chloride (Potassium Chloride Oral Liquid) 40 meq PO DAILY [facility] Last Admin: 11/27/17 10:53 Dose: 40 meq Potassium Phos/Sodium Phos (Phos-Nak Packet -) 1 packet PO BID [facility] Last Admin: 11/27/17 10:54 Dose: 1 packet Vancomycin HCl (Vancomycin Oral Solution) 125 mg PO Q6HPO [facility] Last Admin: 11/27/17 12:40 Dose: 125 mg - Objective Vital Signs: Vital Signs Temperature 98.2 F 11/27/17 13:29 Pulse Rate 84 11/27/17 13:29 Respiratory Rate 16 11/27/17 13:29 Blood Pressure 118/70 11/27/17 13:29 O2 Sat by Pulse Oximetry (%) 96 11/26/17 21:00 Constitutional: Yes: No Distress, Calm, Thin Cardiovascular: Yes: Regular Rate and Rhythm Respiratory: Yes: Regular, CTA Bilaterally Gastrointestinal: Yes: Normal Bowel Sounds, Soft Musculoskeletal: Yes: WNL Extremities: Yes: WNL Labs: CBC, BMP 11/27/17 06:30 11/27/17 06:30 INR, PTT INR 1.00 (0.82-1.09) 11/15/17 10:20 Assessment/Plan Problem List - Problems (1) Acute hyponatremia Code(s): E87.1 - HYPO-OSMOLALITY AND HYPONATREMIA (2) Acute metabolic encephalopathy Code(s): G93.41 - METABOLIC ENCEPHALOPATHY (3) Acute hypokalemia Code(s): E87.6 - HYPOKALEMIA (4) Acute kidney failurey Code(s): N17.9 - ACUTE KIDNEY FAILURE, UNSPECIFIED (5) Diarrhea Code(s): R19.7 - DIARRHEA, UNSPECIFIED (6) Hypotension Code(s): I95.9 - HYPOTENSION, UNSPECIFIED (7) Fall Code(s): W19.XXXA - UNSPECIFIED FALL, INITIAL ENCOUNTER (8) Hypothyroidism Code(s): E03.9 - HYPOTHYROIDISM, UNSPECIFIED (9) Anemia Code(s): D64.9 - ANEMIA, UNSPECIFIED Qualifiers: Anemia type: unspecified type Qualified Code(s): D64.9 - Anemia, unspecified (10) Fracture of left hip Code(s): S72.002A - FRACTURE OF UNSP PART OF NECK OF LEFT FEMUR, INIT Qualifiers: Encounter type: subsequent encounter Fracture type: closed 11 sepsis plan continue oral vanco complete a 14 day course continue monitoring hydration rest as per primary team
[2017-11-27] MEDS: SODIUM CHLORIDE 1,000 ML IV SCH (16:01)
== END 2017-11-27 17:00 | DRG 371 ==
LOC: JER 09:50 → JERBED 13:27 → JICU 17:33 → J8W 11-17 18:49
PROVIDERS: ADMIT Internal Medicine; ATTEND Internal Medicine
DX: A04.72 Enterocolitis due to Clostridium difficile, not specified as recurrent (principal); G93.41 Metabolic encephalopathy; E87.1 Hypo-osmolality and hyponatremia; N17.9 Acute kidney failure, unspecified; N13.30 Unspecified hydronephrosis; E87.2 Acidosis; I95.9 Hypotension, unspecified; E87.6 Hypokalemia; E86.0 Dehydration; E83.39 Other disorders of phosphorus metabolism; B96.89 Other specified bacterial agents as the cause of diseases classified elsewhere; E03.9 Hypothyroidism, unspecified; D64.9 Anemia, unspecified; I25.10 Atherosclerotic heart disease of native coronary artery without angina pectoris; K21.9 Gastro-esophageal reflux disease without esophagitis; F03.90 Unspecified dementia, unspecified severity, without behavioral disturbance, psychotic disturbance, mood disturbance, and anxiety; Z91.81 History of falling; G89.29 Other chronic pain; M25.552 Pain in left hip
CPT/HCPCS: 36415; 70450-TC; 71045-TC; 73523-TC; 80048; 80053; 80061; 81003; 81015; 82436; 82570; 82962; 83605; 83721; 83735; 83880; 83930; 83935; 84100; 84133; 84155; 84165; 84300; 84484; 85025; 85610; 85730; 86850; 86900; 86901; 87040; 87086; 87324; 87449; 87804; 93005; 93010; 97116-GP; 97161-GP; 99285-25; J1644; J2597